=== PATIENT | male | born 1960 | race Caucasian/White ===

== ENCOUNTER 2019-11-12 05:19 | Inpatient (IN) | payer MEDICARE, MEDICAID ==
[2019-11-12] MEDS ORDERED: Sodium Chloride 0.9% 1,000 ML IV SCH ×3 (05:45→06:45)
--- NOTE | 2019-11-12 05:45 | EDM.PDOC ---
<Octaviano Gonzalez - Last Filed: 11/12/19 07:18> ED HPI GENERAL MEDICAL PROBLEM - General Chief Complaint: Fever Stated Complaint: [facility] Time Seen by Provider: 11/12/19 05:42 - Related Data Allergies Allergy/AdvReac Type Severity Reaction Status Date / Time No Known Allergies Allergy Verified 11/12/19 05:39 Home Meds: Home Meds Acetaminophen 500 mg PO TID 02/28/19 [History] Calcium Carbonate [Calcium] 600 mg PO DAILY 02/28/19 [History] Donepezil HCl 10 mg PO DAILY 02/28/19 [History] Multivitamin with Minerals [Multiple Vitamin] 1 tab PO DAILY 02/28/19 [History] Omeprazole 40 mg PO DAILY 02/28/19 [History] QUEtiapine Fumarate [Quetiapine Fumarate] 50 mg PO TID 02/28/19 [History] levETIRAcetam [Levetiracetam ER] 750 mg PO BID 02/28/19 [History] Hydrocortisone [Hydrocortisone 1% Crm] 1 applic TOP BID PRN 08/30/19 [History] OXcarbazepine [Oxcarbazepine] 150 mg PO BID 08/30/19 [History] Sertraline [Zoloft] 50 mg PO DAILY 08/30/19 [History] Potassium Chloride 10 meq PO DAILY 11/12/19 [History] Course - Vital Signs Text/Narrative:: Dr. Ledesma called @ 0720h Last Recorded V/S: Last Vital Signs Temp 36.0 C L 11/12/19 16:52 Pulse 109 H 11/12/19 18:00 Resp 18 11/12/19 18:00 BP 94/58 L 11/12/19 18:00 Pulse Ox 97 11/12/19 18:00 - Orders/Labs/Meds Orders: Active Orders 24 hr Category Date Time Status Ambulate [RC] QID Care 11/12/19 08:40 Active Communication Order [RC] ASDIRECTED Care 11/12/19 08:40 Active Communication Order [RC] UPON Care 11/12/19 08:40 Active Dorsiflex/Plantar flex x 10 [RC] Q4HR Care 11/12/19 08:40 Active Head of Bed Elevation [RC] ASDIRECTED Care 11/12/19 08:40 Active Intake and Output [RC] ASDIRECTED Care 11/12/19 08:40 Inactive Notify Provider Vital Signs [RC] ASDIRECTED Care 11/12/19 08:40 Active Pneumonia Education [RC] UPON Care 11/12/19 08:40 Active RT Incentive Spirometry [RC] Q1HWA Care 11/12/19 08:40 Active Ready for Discharge [RC] PER UNIT ROUTINE Care 11/12/19 08:40 Inactive Ready for Discharge [RC] UPON Care 11/12/19 08:40 Inactive Turn, Cough, Deep Breathe [RC] .PRN Care 11/12/19 08:40 Active Up to Chair [RC] ASDIRECTED Care 11/12/19 08:40 Active Vital Signs [RC] PER UNIT ROUTINE Care 11/12/19 08:40 Inactive Nutrition Reassessment/Plan, Adult [Consult to Cons 11/12/19 08:42 Active Disabilities Caregiver] [CONS] Routine Advance Diet Instructions [DIET] Diet 11/12/19 Breakfast Active Advance Diet Instructions [DIET] Diet 11/12/19 Dinner Active Chest 1V Frontal [CR] Stat Exams 11/12/19 05:41 Taken CBC WITH AUTO DIFF [HEME] Routine Lab 11/13/19 05:11 Ordered COMPREHENSIVE METABOLIC PN,CMP [CHEM] Routine Lab 11/13/19 05:11 Ordered CULTURE ANAEROBIC [RM] Routine Lab 11/12/19 09:15 Results CULTURE BLOOD [BC] Urgent Lab 11/12/19 05:50 Results CULTURE BLOOD [BC] Urgent Lab 11/12/19 05:55 Results CULTURE URINE [RM] Stat Lab 11/12/19 05:40 Received CULTURE WOUND + SMEAR [RM] Routine Lab 11/12/19 09:15 Results Acetaminophen/HYDROcodone [Lehr 325-5 MG] Med 11/12/19 08:40 Active 1 tab PO Q4H PRN Benzocaine/Cetylpyrd/Menthol [Cepacol Sore Throat] Med 11/12/19 08:40 Active 1 lozenge MUCMEM Q4H PRN Docusate Sodium [Colace] Med 11/12/19 08:40 Active 100 mg PO BID PRN Donepezil [Aricept] Med 11/12/19 14:00 Active 10 mg PO DAILY Enoxaparin [Lovenox] Med 11/13/19 09:00 Active 40 mg SUBCUT DAILY Hydrocortisone [Hydrocortisone 1% Crm] Med 11/12/19 08:44 Active 0 gm TOP BID PRN OXcarbazepine [Trileptal] Med 11/12/19 21:00 Active 150 mg PO BID Pantoprazole [ProTONIX] Med 11/12/19 14:00 Active 40 mg PO ACBREAKFAST Piperacillin/Tazobactam/Dext [Zosyn in Dextrose Iso- Med 11/12/19 14:00 Active Osmotic 3.375 GM] 3.375 gm Premix Bag 1 bag IV Q6H Potassium Chloride Med 11/12/19 14:00 Active 10 meq PO DAILY QUEtiapine [SEROqueL] Med 11/12/19 14:00 Active 50 mg PO TID Ropivacaine [Naropin 0.5%] 36 ml Med 11/12/19 09:00 Active dexAMETHasone [Dexamethasone] 8 mg EPINEPHrine [Adrenalin] 0.4 mg Sodium Chloride 0.9% [Normal Saline] 41.6 ml NERVRT ASDIRECTED Sertraline [Zoloft] Med 11/12/19 14:00 Active 50 mg PO DAILY Zolpidem [Ambien] Med 11/12/19 08:40 Active 5 mg PO BEDTIME PRN hydrOXYzine HCL [Vistaril] Med 11/12/19 08:40 Active 100 mg IM Q4H PRN levETIRAcetam [Keppra] Med 11/12/19 14:00 Active 750 mg PO BID Abdominal Binder [OM.PC] Routine Oth 11/12/19 08:40 Ordered Blood Culture x2 Reflex Set [OM.PC] Urgent Oth 11/12/19 05:39 Ordered Blood Culture x2 Reflex Set [OM.PC] Urgent Oth 11/12/19 10:32 Ordered Convert IV to Saline Lock [OM.PC] Routine Oth 11/12/19 08:40 Ordered Procedure Education [OM.PC] Routine Oth 11/12/19 08:40 Ordered Sequential Compression Device [OM.PC] Routine Oth 11/12/19 08:40 Ordered Resuscitation Status Routine Resus Stat 11/12/19 08:40 Ordered Medication Orders Hydrocodone Bitart/Acetaminophen (Lehr 325-5 Mg) 1 tab PO Q4H PRN PRN Reason: Pain (moderate 4-6) Benzocaine/Menthol (Cepacol Sore Throat) 1 lozenge MUCMEM Q4H PRN PRN Reason: Sore Throat Ropivacaine 36 ml/Dexamethasone 8 mg/Epinephrine HCl 0.4 mg/ Sodium Chloride 41.6 ml 0 ml NERVRT ASDIRECTED [facility] Last Admin: 11/12/19 09:35 Dose: 80 syringe Docusate Sodium (Colace) 100 mg PO BID PRN PRN Reason: Constipation Donepezil HCl (Aricept) 10 mg PO DAILY [facility] Last Admin: 11/12/19 14:22 Dose: Enoxaparin Sodium (Lovenox) 40 mg SUBCUT DAILY [facility] Hydrocortisone (Hydrocortisone 1% Crm) 0 gm TOP BID PRN PRN Reason: Rash Hydroxyzine HCl (Vistaril) 100 mg IM Q4H PRN PRN Reason: Breakthrough Pain Piperacillin/Tazobactam/ (Dextrose 3.375 gm/ Premix) 50 mls @ 100 mls/hr IV Q6H [facility] Last Admin: 11/12/19 13:59 Dose: 100 mls/hr Potassium Cl/Dextrose/Lact Ringer's (D5 Lr With 20 Meq Kcl) 1,000 mls @ 125 mls /hr IV ASDIRECTED [facility] Last Admin: 11/12/19 11:25 Dose: 125 mls/hr Vancomycin HCl 1 gm/ Sodium (Chloride) 250 mls @ 166.667 mls/hr IV Q12H [facility] Last Admin: 11/12/19 12:13 Dose: 166.667 mls/hr Norepinephrine Bitartrate 4 mg (/ Dextrose/Water) 250 mls @ 7.5 mls/hr IV TITRATE [facility]; Protocol Last Admin: 11/12/19 13:11 Dose: 2 mcg/min, 7.5 mls/hr Levetiracetam (Keppra) 750 mg PO BID [facility] Last Admin: 11/12/19 14:22 Dose: Ondansetron HCl (Zofran Odt) 4 mg PO Q4H PRN PRN Reason: Nausea/Vomiting Ondansetron HCl (Zofran) 4 mg IVPUSH Q4H PRN PRN Reason: Nausea/Vomiting Oxcarbazepine (Trileptal) 150 mg PO BID [facility] Pantoprazole Sodium (Protonix) 40 mg PO ACBREAKFAST [facility] Last Admin: 11/12/19 14:23 Dose: Potassium Chloride (Potassium Chloride) 10 meq PO DAILY [facility] Last Admin: 11/12/19 14:22 Dose: Quetiapine Fumarate (Seroquel) 50 mg PO TID [facility] Last Admin: 11/12/19 14:23 Dose: Sertraline HCl (Zoloft) 50 mg PO DAILY [facility] Last Admin: 11/12/19 14:23 Dose: Zolpidem Tartrate (Ambien) 5 mg PO BEDTIME PRN PRN Reason: Sleep Labs: Laboratory Tests 11/12/19 11/12/19 11/12/19 Range/Units 05:39 05:50 05:50 WBC 6.7 (4.5-11.0) K/uL RBC 4.01 L (4.30-5.90) M/uL Hgb 13.1 (12.0-15.0) g/dL Hct 40.0 (40.0-54.0) % MCV 100 H (80-98) fL MCH 33 H (27-31) pg MCHC 33 (32-36) % Plt Count 157 (150-400) K/uL Add Manual Diff Yes Neutrophils % (Manual) 72 H (36-66) % Band Neutrophils % 18 H (5-11) % Lymphocytes % (Manual) 7 L (24-44) % Monocytes % (Manual) 3 (2-6) % Sodium 143 (140-148) mmol/L Potassium 3.4 L (3.6-5.2) mmol/L Chloride 106 (100-108) mmol/L Carbon Dioxide 25 (21-32) mmol/L Anion Gap 15.4 H (5.0-14.0) mmol/L BUN 26 H (7-18) mg/dL Creatinine 1.1 (0.8-1.3) mg/dL Est Cr Clr Drug Dosing 69.95 mL/min Estimated GFR (MDRD) > 60 (>60) Glucose 86 (74-106) mg/dL Lactic Acid (0.4-2.0) mmol/L Calcium 8.0 L (8.5-10.1) mg/dL Total Bilirubin 0.6 (0.2-1.0) mg/dL AST 128 H (15-37) U/L ALT 171 H (12-78) U/L Alkaline Phosphatase 291 H (46-116) U/L C-Reactive Protein (0.0-0.3) mg/dL Total Protein 6.2 L (6.4-8.2) g/dL Albumin 2.5 L (3.4-5.0) g/dL Globulin 3.7 H (2.3-3.5) g/dL Albumin/Globulin Ratio 0.7 L (1.2-2.2) Lipase (73-393) U/L Urine Color Yellow (YELLOW) Urine Appearance Clear (CLEAR) Urine pH 7.0 (5.0-8.0) Ur Specific [place] 1.020 (1.008-1.030) Urine Protein 100 H (NEGATIVE) mg/dL Urine Glucose (UA) Negative (NEGATIVE) mg/dL Urine Ketones Trace H (NEGATIVE) mg/dL Urine Occult Blood Trace-intact H (NEGATIVE) Urine Nitrite Negative (NEGATIVE) Urine Bilirubin Small H (NEGATIVE) Urine Urobilinogen 1.0 (0.2-1.0) EU/dL Ur Leukocyte Esterase Negative (NEGATIVE) Urine RBC 0-5 (0-5) Urine WBC 0-5 (0-5) Ur Epithelial Cells Few Amorphous Sediment Few Urine Bacteria Few Urine Mucus Few 11/12/19 11/12/19 11/12/19 Range/Units 05:50 06:31 06:33 WBC (4.5-11.0) K/uL RBC (4.30-5.90) M/uL Hgb (12.0-15.0) g/dL Hct (40.0-54.0) % MCV (80-98) fL MCH (27-31) pg MCHC (32-36) % Plt Count (150-400) K/uL Add Manual Diff Neutrophils % (Manual) (36-66) % Band Neutrophils % (5-11) % Lymphocytes % (Manual) (24-44) % Monocytes % (Manual) (2-6) % Sodium (140-148) mmol/L Potassium (3.6-5.2) mmol/L Chloride (100-108) mmol/L Carbon Dioxide (21-32) mmol/L Anion Gap (5.0-14.0) mmol/L BUN (7-18) mg/dL Creatinine (0.8-1.3) mg/dL Est Cr Clr Drug Dosing mL/min Estimated GFR (MDRD) (>60) Glucose (74-106) mg/dL Lactic Acid 3.1 H (0.4-2.0) mmol/L Calcium (8.5-10.1) mg/dL Total Bilirubin (0.2-1.0) mg/dL AST (15-37) U/L ALT (12-78) U/L Alkaline Phosphatase (46-116) U/L C-Reactive Protein 19.72 H (0.0-0.3) mg/dL Total Protein (6.4-8.2) g/dL Albumin (3.4-5.0) g/dL Globulin (2.3-3.5) g/dL Albumin/Globulin Ratio (1.2-2.2) Lipase 32 L (73-393) U/L Urine Color (YELLOW) Urine Appearance (CLEAR) Urine pH (5.0-8.0) Ur Specific [place] (1.008-1.030) Urine Protein (NEGATIVE) mg/dL Urine Glucose (UA) (NEGATIVE) mg/dL Urine Ketones (NEGATIVE) mg/dL Urine Occult Blood (NEGATIVE) Urine Nitrite (NEGATIVE) Urine Bilirubin (NEGATIVE) Urine Urobilinogen (0.2-1.0) EU/dL Ur Leukocyte Esterase (NEGATIVE) Urine RBC (0-5) Urine WBC (0-5) Ur Epithelial Cells Amorphous Sediment Urine Bacteria Urine Mucus 11/12/19 Range/Units 10:50 WBC (4.5-11.0) K/uL RBC (4.30-5.90) M/uL Hgb (12.0-15.0) g/dL Hct (40.0-54.0) % MCV (80-98) fL MCH (27-31) pg MCHC (32-36) % Plt Count (150-400) K/uL Add Manual Diff Neutrophils % (Manual) (36-66) % Band Neutrophils % (5-11) % Lymphocytes % (Manual) (24-44) % Monocytes % (Manual) (2-6) % Sodium (140-148) mmol/L Potassium (3.6-5.2) mmol/L Chloride (100-108) mmol/L Carbon Dioxide (21-32) mmol/L Anion Gap (5.0-14.0) mmol/L BUN (7-18) mg/dL Creatinine (0.8-1.3) mg/dL Est Cr Clr Drug Dosing mL/min Estimated GFR (MDRD) (>60) Glucose (74-106) mg/dL Lactic Acid 4.8 H (0.4-2.0) mmol/L Calcium (8.5-10.1) mg/dL Total Bilirubin (0.2-1.0) mg/dL AST (15-37) U/L ALT (12-78) U/L Alkaline Phosphatase (46-116) U/L C-Reactive Protein (0.0-0.3) mg/dL Total Protein (6.4-8.2) g/dL Albumin (3.4-5.0) g/dL Globulin (2.3-3.5) g/dL Albumin/Globulin Ratio (1.2-2.2) Lipase (73-393) U/L Urine Color (YELLOW) Urine Appearance (CLEAR) Urine pH (5.0-8.0) Ur Specific [place] (1.008-1.030) Urine Protein (NEGATIVE) mg/dL Urine Glucose (UA) (NEGATIVE) mg/dL Urine Ketones (NEGATIVE) mg/dL Urine Occult Blood (NEGATIVE) Urine Nitrite (NEGATIVE) Urine Bilirubin (NEGATIVE) Urine Urobilinogen (0.2-1.0) EU/dL Ur Leukocyte Esterase (NEGATIVE) Urine RBC (0-5) Urine WBC (0-5) Ur Epithelial Cells Amorphous Sediment Urine Bacteria Urine Mucus Meds: Medications Generic Name Dose Route Start Last Admin Trade Name Freq PRN Reason Stop Dose Admin Hydrocodone Bitart/Acetaminophen 1 tab 11/12/19 08:40 Lehr 325-5 Mg PO Q4H PRN Pain (moderate 4-6) Benzocaine/Menthol 1 lozenge 11/12/19 08:40 Cepacol Sore Throat MUCMEM Q4H PRN Sore Throat Ropivacaine 36 ml/ 0 ml 11/12/19 09:00 11/12/19 09:35 Dexamethasone 8 mg/ NERVRT 80 syringe Epinephrine HCl 0.4 mg/ Sodium ASDIRECTED ELISHA Administration Chloride 41.6 ml Docusate Sodium 100 mg 11/12/19 08:40 Colace PO BID PRN Constipation Donepezil HCl 10 mg 11/12/19 14:00 11/12/19 14:22 Aricept PO Not Given DAILY [facility] Enoxaparin Sodium 40 mg 11/13/19 09:00 Lovenox SUBCUT DAILY [facility] Hydrocortisone 0 gm 11/12/19 08:44 Hydrocortisone 1% Crm TOP BID PRN Rash Hydroxyzine HCl 100 mg 11/12/19 08:40 Vistaril IM Q4H PRN Breakthrough Pain Piperacillin/Tazobactam/ 50 mls @ 100 mls/hr 11/12/19 14:00 11/12/19 13:59 Dextrose 3.375 gm/ Premix IV 100 mls/hr Q6H [facility] Administration Potassium Cl/Dextrose/Lact Ringer's 1,000 mls @ 125 mls/hr 11/12/19 11:15 11:25 D5 Lr With 20 Meq Kcl IV 125 mls/hr ASDIRECTED [facility] Administration Vancomycin HCl 1 gm/ Sodium 250 mls @ 166.667 mls/hr 11/12/19 12:00 11/12/19 12:13 Chloride IV 166.667 mls/hr Q12H [facility] Administration Norepinephrine Bitartrate 4 mg 250 mls @ 7.5 mls/hr 11/12/19 12:45 11/12/19 13:11 / Dextrose/Water IV 2 mcg/min TITRATE [facility] 7.5 mls/hr Administration Protocol 2 MCG/MIN Levetiracetam 750 mg 11/12/19 14:00 11/12/19 14:22 Keppra PO Not Given BID [facility] Ondansetron HCl 4 mg 11/12/19 11:07 Zofran Odt PO Q4H PRN Nausea/Vomiting Ondansetron HCl 4 mg 11/12/19 11:07 Zofran IVPUSH Q4H PRN Nausea/Vomiting Oxcarbazepine 150 mg 11/12/19 21:00 Trileptal PO BID [facility] Pantoprazole Sodium 40 mg 11/12/19 14:00 11/12/19 14:23 Protonix PO Not Given ACBREAKFAST [facility] Potassium Chloride 10 meq 11/12/19 14:00 11/12/19 14:22 Potassium Chloride PO Not Given DAILY [facility] Quetiapine Fumarate 50 mg 11/12/19 14:00 11/12/19 14:23 Seroquel PO Not Given TID [facility] Sertraline HCl 50 mg 11/12/19 14:00 11/12/19 14:23 Zoloft PO Not Given DAILY [facility] Zolpidem Tartrate 5 mg 11/12/19 08:40 Ambien PO BEDTIME PRN Sleep Discontinued Medications Generic Name Dose Route Start Last Admin Trade Name [place] PRN Reason Stop Dose Admin Acetaminophen 650 mg 11/12/19 05:58 11/12/19 06:03 Tylenol RECTAL 11/12/19 05:59 650 mg NOW ONE Administration Bupivacaine HCl Confirm 11/12/19 08:34 11/12/19 09:29 Marcaine 0.5% Administered 11/12/19 08:35 20 ml Dose Administration 50 ml .ROUTE .STK-MED ONE Dexamethasone Confirm 11/12/19 08:41 Dexamethasone Administered 11/12/19 08:42 Dose 4 mg .ROUTE .STK-MED ONE Fentanyl Confirm 11/12/19 08:41 Sublimaze Administered 11/12/19 08:42 Dose 250 mcg .ROUTE .STK-MED ONE Glycopyrrolate Confirm 11/12/19 08:41 Robinul Administered 11/12/19 08:42 Dose 1 mg .ROUTE .STK-MED ONE Sodium Chloride 1,000 mls @ 999 mls/hr 11/12/19 05:45 11/12/19 05:40 Normal Saline IV 999 mls/hr ASDIRECTED ELISHA Administration Sodium Chloride 1,000 mls @ 999 mls/hr 11/12/19 05:45 11/12/19 06:30 Normal Saline IV 999 mls/hr ASDIRECTED [facility] Administration Piperacillin Sod/Tazobactam 100 mls @ 100 mls/hr 11/12/19 06:17 11/12/19 06: 35 Sod 4.5 gm/ Sodium Chloride IV 11/12/19 07:16 100 mls/hr ONETIME ONE Administration Aztreonam 1 gm/ Sodium 50 mls @ 100 mls/hr 11/12/19 06:32 11/12/19 06:53 Chloride IV 11/12/19 07:01 100 mls/hr ONETIME ONE Administration Sodium Chloride Confirm 11/12/19 06:32 11/12/19 06:40 Normal Saline Administered 11/12/19 06:33 Not Given Dose 100 mls @ as directed .ROUTE .STK-MED ONE Sodium Chloride Confirm 11/12/19 06:33 11/12/19 06:40 Normal Saline Administered 11/12/19 06:34 Not Given Dose 100 mls @ as directed .ROUTE .STK-MED ONE Sodium Chloride 1,000 mls @ 500 mls/hr 11/12/19 06:45 11/12/19 07:36 Normal Saline IV 500 mls/hr ASDIRECTED EILSHA Administration Lactated Ringer's Confirm 11/12/19 09:00 Ringers, Lactated Administered 11/12/19 09:01 Dose 1,000 mls @ as directed .ROUTE .STK-MED ONE Sodium Chloride Confirm 11/12/19 09:04 Normal Saline Administered 11/12/19 09:05 Dose 10 mls @ as directed .ROUTE .STK-MED ONE Lactated Ringer's Confirm 11/12/19 09:07 Ringers, Lactated Administered 11/12/19 09:08 Dose 1,000 mls @ as directed .ROUTE .STK-MED ONE Lactated Ringer's Confirm 11/12/19 09:37 Ringers, Lactated Administered 11/12/19 09:38 Dose 1,000 mls @ as directed .ROUTE .STK-MED ONE Lactated Ringer's 1,000 ml 11/12/19 09:15 11/12/19 09:15 Ringers, Lactated IRR 11/12/19 09:16 1,000 ml .STK-MED ONE Administration Lidocaine/Epinephrine Confirm 11/12/19 08:34 11/12/19 09:29 Xylocaine 1% With Epinephrine 1:100,000 Administered 11/12/19 08:35 20 ml Dose Administration 50 ml .ROUTE .STK-MED ONE Neostigmine Methylsulfate Confirm 11/12/19 08:41 Neostigmine Administered 11/12/19 08:42 Dose 5 mg .ROUTE .STK-MED ONE Ondansetron HCl Confirm 11/12/19 08:41 Zofran Administered 11/12/19 08:42 Dose 4 mg .ROUTE .STK-MED ONE Phenylephrine HCl Confirm 11/12/19 09:04 Bobby-Synephrine Administered 11/12/19 09:05 Dose 10 mg .ROUTE .STK-MED ONE Piperacillin Sod/Tazobactam Sod Confirm 11/12/19 06:30 11/12/19 06:39 Zosyn Administered 11/12/19 06:31 Not Given Dose 4.5 gm .ROUTE .STK-MED ONE Propofol Confirm 11/12/19 08:41 Diprivan 20 Ml Administered 11/12/19 08:42 Dose 200 mg .ROUTE .STK-MED ONE Rocuronium [place] Confirm 11/12/19 08:41 Zemuron Administered 11/12/19 08:42 Dose 50 mg .ROUTE .STK-MED ONE Succinylcholine Chloride Confirm 11/12/19 08:41 Quelicin Administered 11/12/19 08:42 Dose 200 mg .ROUTE .STK-MED ONE - Radiology Interpretation Free Text/Narrative:: GB ultrasound-cholecystitis Departure - Departure Time of Disposition: 07:45 Disposition: Admitted As Inpatient 65 Condition: Fair Clinical Impression: Acute cholecystitis - Discharge Information *PRESCRIPTION DRUG MONITORING PROGRAM REVIEWED*: Not Applicable *COPY OF PRESCRIPTION DRUG MONITORING REPORT IN PATIENT SUSANNE: Not Applicable Sepsis Event Note - Focused Exam Vital Signs: Vital Signs Temp Pulse Resp BP Pulse Ox 11/12/19 11:00 122 H 18 85/48 L 98 11/12/19 10:55 36.9 C 124 H 18 93/50 L 98 11/12/19 10:50 127 H 18 92/49 L 98 11/12/19 10:45 124 H 16 94/50 L 96 11/12/19 10:40 36.4 C 130 H 18 98/53 L 99 11/12/19 08:27 120 H 18 83/43 L 11/12/19 08:15 118 H 19 83/40 L 11/12/19 07:27 119 H 16 89/41 L 94 L 11/12/19 07:12 119 H 19 89/46 L 95 11/12/19 06:42 121 H 18 93/46 L 98 11/12/19 06:27 128 H 17 85/49 L 99 11/12/19 06:22 125 H 20 84/46 L 99 Date Exam was Performed: 11/12/19 Time Exam was Performed: 07:18 - My Orders Last 24 Hours: My Active Orders 11/12/19 05:39 Blood Culture x2 Reflex Set [OM.PC] Urgent 11/12/19 05:40 CULTURE URINE [RM] Stat 11/12/19 05:41 Chest 1V Frontal [CR] Stat 11/12/19 05:50 CULTURE BLOOD [BC] Urgent 11/12/19 05:55 CULTURE BLOOD [BC] Urgent - Assessment/Plan Last 24 Hours: My Active Orders 11/12/19 05:39 Blood Culture x2 Reflex Set [OM.PC] Urgent 11/12/19 05:40 CULTURE URINE [RM] Stat 11/12/19 05:41 Chest 1V Frontal [CR] Stat 11/12/19 05:50 CULTURE BLOOD [BC] Urgent 11/12/19 05:55 CULTURE BLOOD [BC] Urgent <Lidia Echeverria - Last Filed: 11/12/19 18:14> ED HPI GENERAL MEDICAL PROBLEM - General Source of Information: Reports: Patient History Limitations: Reports: No Limitations - History of Present Illness INITIAL COMMENTS - FREE TEXT/NARRATIVE: pt arrived with a fever of 101. he had a temp at [facility] of 104. He has not been as active for the past 2 days. He has not been vomiting. Onset: Today Duration: Hour(s): Location: Reports: Generalized Associated Symptoms: Reports: Fever/Chills, Malaise Past Medical History HEENT History: Reports: Impaired Vision Cardiovascular History: Reports: None Respiratory History: Reports: None Gastrointestinal History: Reports: None Genitourinary History: Reports: None Musculoskeletal History: Reports: Other (See Below) Other Musculoskeletal History: right hip pain Neurological History: Reports: None Psychiatric History: Reports: None Endocrine/Metabolic History: Reports: None Hematologic History: Reports: None Immunologic History: Reports: None Oncologic (Cancer) History: Reports: None Dermatologic History: Reports: None - Past Surgical History Musculoskeletal Surgical History: Reports: None, Other (See Below) Other Musculoskeletal Surgeries/Procedures:: cadaver bone LT leg Social & Family History - Tobacco Use Smoking Status *Q: Never Smoker - Caffeine Use Caffeine Use: Reports: None - Recreational Drug Use Recreational Drug Use: No ED ROS GENERAL - Review of Systems Review Of Systems: See Below Constitutional: Reports: Fever, Chills, Malaise, Weakness HEENT: Reports: No Symptoms Respiratory: Reports: No Symptoms Cardiovascular: Reports: No Symptoms Endocrine: Reports: No Symptoms GI/Abdominal: Reports: No Symptoms : Reports: No Symptoms Musculoskeletal: Reports: No Symptoms Skin: Reports: No Symptoms Neurological: Reports: Confusion, Other (increased. 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 ) Psychiatric: Reports: Confusion ED EXAM, SEPSIS - Physical Exam Exam: See Below Text/Narrative:: pt is a pale appear person with elevated temp. He has not had a cough. He has been less active for the past 2 days. He has not been vomiting. Exam Limited By: No Limitations General Appearance: Alert, No Apparent Distress, Anxious Ears: Normal TMs Nose: Normal Inspection Throat/Mouth: Other (mouth is dry. ) Head: Atraumatic Neck: Normal Inspection Respiratory/Chest: No Respiratory Distress Cardiovascular: Regular Rate, Rhythm, Tachycardia GI/Abdominal Exam: Soft, Non-Tender (Male) Exam: Deferred Rectal (Males) Exam: Deferred Extremities: Normal Inspection Neurological: Alert, Other (pt is normally confused. ) Course - Orders/Labs/Meds Labs: Laboratory Tests 11/12/19 11/12/19 11/12/19 Range/Units 05:39 05:50 05:50 WBC 6.7 (4.5-11.0) K/uL RBC 4.01 L (4.30-5.90) M/uL Hgb 13.1 (12.0-15.0) g/dL Hct 40.0 (40.0-54.0) % MCV 100 H (80-98) fL MCH 33 H (27-31) pg MCHC 33 (32-36) % Plt Count 157 (150-400) K/uL Add Manual Diff Yes Neutrophils % (Manual) 72 H (36-66) % Band Neutrophils % 18 H (5-11) % Lymphocytes % (Manual) 7 L (24-44) % Monocytes % (Manual) 3 (2-6) % Sodium 143 (140-148) mmol/L Potassium 3.4 L (3.6-5.2) mmol/L Chloride 106 (100-108) mmol/L Carbon Dioxide 25 (21-32) mmol/L Anion Gap 15.4 H (5.0-14.0) mmol/L BUN 26 H (7-18) mg/dL Creatinine 1.1 (0.8-1.3) mg/dL Est Cr Clr Drug Dosing 69.95 mL/min Estimated GFR (MDRD) > 60 (>60) Glucose 86 (74-106) mg/dL Lactic Acid (0.4-2.0) mmol/L Calcium 8.0 L (8.5-10.1) mg/dL Total Bilirubin 0.6 (0.2-1.0) mg/dL AST 128 H (15-37) U/L ALT 171 H (12-78) U/L Alkaline Phosphatase 291 H (46-116) U/L C-Reactive Protein (0.0-0.3) mg/dL Total Protein 6.2 L (6.4-8.2) g/dL Albumin 2.5 L (3.4-5.0) g/dL Globulin 3.7 H (2.3-3.5) g/dL Albumin/Globulin Ratio 0.7 L (1.2-2.2) Lipase (73-393) U/L Urine Color Yellow (YELLOW) Urine Appearance Clear (CLEAR) Urine pH 7.0 (5.0-8.0) Ur Specific [place] 1.020 (1.008-1.030) Urine Protein 100 H (NEGATIVE) mg/dL Urine Glucose (UA) Negative (NEGATIVE) mg/dL Urine Ketones Trace H (NEGATIVE) mg/dL Urine Occult Blood Trace-intact H (NEGATIVE) Urine Nitrite Negative (NEGATIVE) Urine Bilirubin Small H (NEGATIVE) Urine Urobilinogen 1.0 (0.2-1.0) EU/dL Ur Leukocyte Esterase Negative (NEGATIVE) Urine RBC 0-5 (0-5) Urine WBC 0-5 (0-5) Ur Epithelial Cells Few Amorphous Sediment Few Urine Bacteria Few Urine Mucus Few 11/12/19 11/12/19 11/12/19 Range/Units 05:50 06:31 06:33 WBC (4.5-11.0) K/uL RBC (4.30-5.90) M/uL Hgb (12.0-15.0) g/dL Hct (40.0-54.0) % MCV (80-98) fL MCH (27-31) pg MCHC (32-36) % Plt Count (150-400) K/uL Add Manual Diff Neutrophils % (Manual) (36-66) % Band Neutrophils % (5-11) % Lymphocytes % (Manual) (24-44) % Monocytes % (Manual) (2-6) % Sodium (140-148) mmol/L Potassium (3.6-5.2) mmol/L Chloride (100-108) mmol/L Carbon Dioxide (21-32) mmol/L Anion Gap (5.0-14.0) mmol/L BUN (7-18) mg/dL Creatinine (0.8-1.3) mg/dL Est Cr Clr Drug Dosing mL/min Estimated GFR (MDRD) (>60) Glucose (74-106) mg/dL Lactic Acid 3.1 H (0.4-2.0) mmol/L Calcium (8.5-10.1) mg/dL Total Bilirubin (0.2-1.0) mg/dL AST (15-37) U/L ALT (12-78) U/L Alkaline Phosphatase (46-116) U/L C-Reactive Protein 19.72 H (0.0-0.3) mg/dL Total Protein (6.4-8.2) g/dL Albumin (3.4-5.0) g/dL Globulin (2.3-3.5) g/dL Albumin/Globulin Ratio (1.2-2.2) Lipase 32 L (73-393) U/L Urine Color (YELLOW) Urine Appearance (CLEAR) Urine pH (5.0-8.0) Ur Specific [place] (1.008-1.030) Urine Protein (NEGATIVE) mg/dL Urine Glucose (UA) (NEGATIVE) mg/dL Urine Ketones (NEGATIVE) mg/dL Urine Occult Blood (NEGATIVE) Urine Nitrite (NEGATIVE) Urine Bilirubin (NEGATIVE) Urine Urobilinogen (0.2-1.0) EU/dL Ur Leukocyte Esterase (NEGATIVE) Urine RBC (0-5) Urine WBC (0-5) Ur Epithelial Cells Amorphous Sediment Urine Bacteria Urine Mucus 11/12/19 Range/Units 10:50 WBC (4.5-11.0) K/uL RBC (4.30-5.90) M/uL Hgb (12.0-15.0) g/dL Hct (40.0-54.0) % MCV (80-98) fL MCH (27-31) pg MCHC (32-36) % Plt Count (150-400) K/uL Add Manual Diff Neutrophils % (Manual) (36-66) % Band Neutrophils % (5-11) % Lymphocytes % (Manual) (24-44) % Monocytes % (Manual) (2-6) % Sodium (140-148) mmol/L Potassium (3.6-5.2) mmol/L Chloride (100-108) mmol/L Carbon Dioxide (21-32) mmol/L Anion Gap (5.0-14.0) mmol/L BUN (7-18) mg/dL Creatinine (0.8-1.3) mg/dL Est Cr Clr Drug Dosing mL/min Estimated GFR (MDRD) (>60) Glucose (74-106) mg/dL Lactic Acid 4.8 H (0.4-2.0) mmol/L Calcium (8.5-10.1) mg/dL Total Bilirubin (0.2-1.0) mg/dL AST (15-37) U/L ALT (12-78) U/L Alkaline Phosphatase (46-116) U/L C-Reactive Protein (0.0-0.3) mg/dL Total Protein (6.4-8.2) g/dL Albumin (3.4-5.0) g/dL Globulin (2.3-3.5) g/dL Albumin/Globulin Ratio (1.2-2.2) Lipase (73-393) U/L Urine Color (YELLOW) Urine Appearance (CLEAR) Urine pH (5.0-8.0) Ur Specific [place] (1.008-1.030) Urine Protein (NEGATIVE) mg/dL Urine Glucose (UA) (NEGATIVE) mg/dL Urine Ketones (NEGATIVE) mg/dL Urine Occult Blood (NEGATIVE) Urine Nitrite (NEGATIVE) Urine Bilirubin (NEGATIVE) Urine Urobilinogen (0.2-1.0) EU/dL Ur Leukocyte Esterase (NEGATIVE) Urine RBC (0-5) Urine WBC (0-5) Ur Epithelial Cells Amorphous Sediment Urine Bacteria Urine Mucus - Re-Assessments/Exams Free Text/Narrative Re-Assessment/Exam: 11/12/19 06:09 chest xray is neg--chronic changes. urine looks clear, pt is dehydrated. His wbc was 6,700 mainly seghs. He has markedly elevated liver enzymes. He is very tender in the rt upper abdoman. He is very dehydrated. He was given zosyn and azatam. He will have a US of his GB area, Pt was given tylenol 650. 11/12/19 06:51 11/12/19 18:13 US revealed a thickened GB wall and evidence of a hot GB. Sepsis Event Note - Evaluation Sepsis Screening Result: Severe Sepsis Risk - Focused Exam Date Exam was Performed: 11/12/19 Time Exam was Performed: 18:13
[2019-11-12] MEDS ORDERED: Acetaminophen 650 MG Supp RECTAL ONE (05:58)
[2019-11-12] MEDS ORDERED: Piperacillin/Tazobactam 4.5 GM in Sodium Chloride 0.9% 100 ML IV ONE (06:17)
[2019-11-12] MEDS ORDERED: Piperacillin/Tazobactam 4.5 GM Vial ONE (06:30)
[2019-11-12] MEDS ORDERED: Sodium Chloride 0.9% 0 ML ONE (06:32)
[2019-11-12] MEDS ORDERED: Sodium Chloride 0.9% 100 ML ONE (06:33)
--- NOTE | 2019-11-12 07:45 | CRLUS ---
INDICATION: Pain in the right upper abdomen. TECHNIQUE: Abdominal ultrasound. FINDINGS: Right kidney measures 11.2 cm and is negative for hydronephrosis. Pancreas where seen is grossly normal. Proximal abdominal aorta normal in caliber. Liver where seen negative for mass or bile duct dilatation. Proximal abdominal inferior cava normal in caliber and patent with flow in the appropriate direction. The gallbladder is distended to moderately prominent degree. Small stones in the gallbladder. Moderate amount of dense sludge in the gallbladder. Gallbladder wall is irregular and moderately thickened with measurements of the gallbladder wall being up to 6 mm. Despite the absence of a sonographic Russell`s sign, cholecystitis should be the primary consideration and should be excluded. Other gallbladder wall infiltrative process such as neoplasm would be less likely since there is no discrete mass however this latter finding is not entirely excluded. Common bile duct measures 3.9 mm which is within normal limits. Main portal vein is patent. The gallbladder was distended to a length of 10-11 cm. Remainder negative. IMPRESSION: Moderate irregular dense sludge in the gallbladder with small stones with the gallbladder wall being moderately thickened and irregular. Findings suggest cholecystitis which could be acute with possible subacute or chronic component. Other infiltrative process of the gallbladder such as neoplasm is not entirely excluded. No biliary dilatation. The gallbladder is prominently distended. Other findings as above. Dictated by Candido Abraham MD @ Nov 12 2019 7:43AM Signed by Dr. Candido Abraham @ Nov 12 2019 7:44AM
[2019-11-12] MEDS ORDERED: Bupivacaine 0.5% 50 ML MDV ONE (08:34)
[2019-11-12] MEDS ORDERED: Lidocaine 1% with EPINEPHrine 1:100,000 50 ML MDV ONE (08:34)
[2019-11-12] MEDS ORDERED: hydrOXYzine HCL 100 MG/2 ML SDV IM PRN (08:40)
[2019-11-12] MEDS ORDERED: Docusate Sodium 100 MG Cap PO PRN (08:40)
[2019-11-12] MEDS ORDERED: Benzocaine/Cetylpyridinium/Menthol Lozenge MUCMEM PRN (08:40)
[2019-11-12] MEDS ORDERED: fentaNYL 250 MCG/5 ML SDV ONE (08:41)
[2019-11-12] MEDS ORDERED: Propofol 200 MG/20 ML SDV ONE (08:41)
[2019-11-12] MEDS ORDERED: Succinylcholine 200 MG/10 ML MDV ONE (08:41)
[2019-11-12] MEDS ORDERED: Dexamethasone 4 MG/ML SDV ONE (08:41)
[2019-11-12] MEDS ORDERED: Ondansetron 4 MG/2 ML SDV ONE (08:41)
[2019-11-12] MEDS ORDERED: Rocuronium 50 MG/5 ML Vial ONE (08:41)
[2019-11-12] MEDS ORDERED: Neostigmine Methylsulfate 1 MG/ML 5 ML Syringe ONE (08:41)
[2019-11-12] MEDS ORDERED: Glycopyrrolate 0.2 MG/ML 5 ML MDV ONE (08:41)
[2019-11-12] MEDS ORDERED: Hydrocortisone 1% Crm 30 GM Tube TOP PRN (08:44)
[2019-11-12] MEDS ORDERED: Lactated Ringers 1,000 ML ONE ×3 (09:00→09:37)
[2019-11-12] MEDS ORDERED: Ropivacaine 36 ML, dexAMETHasone 8 MG, EPINEPHrine 0.4 MG, Sodium Chloride 0.9% 41.6 ML NERVRT SCH ×4 (09:00)
[2019-11-12] MEDS ORDERED: Sodium Chloride 0.9% 10 ML ONE (09:04)
[2019-11-12] MEDS ORDERED: Phenylephrine 1% 10 MG/ML SDV ONE (09:04)
[2019-11-12] MEDS ORDERED: Vancomycin 1 GM SDV IV SCH (11:00)
[2019-11-12] MEDS ORDERED: Ondansetron 4 MG/2 ML SDV IVPUSH PRN (11:07)
[2019-11-12] MEDS ORDERED: Ondansetron 4 MG Tab.DIS PO PRN (11:07)
--- NOTE | 2019-11-12 11:08 | PCM.CONS ---
H&P History of Present Illness - General Date of Service: 11/12/19 Admit Problem/Dx: Admission Diagnosis/Problem Admission Diagnosis/Problem Acute cholecystitis Source of Information: Provider. No: Patient History Limitations: Reports: Other (Sedation) - History of Present Illness Initial Comments - Free Text/Narative: CC: lethargic and febrile HPI: Jerel was sent to the emergency room from his assisted living this morning with progressive lethargy and a fever greater than 101. Jerel has recently had anesthesia and is not able to provide any usable history. History is gathered from emergency room personnel and notes from the assisted living. His assisted living facility reports that he has been slowly declining over the past 2 weeks but more rapidly over the past 2 days. He has been less interactive and unable to feed himself. He has been refusing to walk. Today was reportedly the first day that he had a fever. Work-up in the emergency room was concerning for sepsis and acute cholecystitis. He was taken to the operating room and had a laparoscopic cholecystectomy. He continues to be hypotensive with systolic blood pressures in the 70s and 80s and occasionally in the 90s. He is tachycardic. His lactic acid level is elevated. He has been admitted to the intensive care unit. I was asked consult by Dr. Ledesma regarding management of severe sepsis and concern that he may be developing septic shock. - Related Data Allergies/Adverse Reactions: Allergies Allergy/AdvReac Type Severity Reaction Status Date / Time No Known Allergies Allergy Verified 11/12/19 05:39 Home Medications: Home Meds Acetaminophen 500 mg PO TID 02/28/19 [History] Calcium Carbonate [Calcium] 600 mg PO DAILY 02/28/19 [History] Donepezil HCl 10 mg PO DAILY 02/28/19 [History] Multivitamin with Minerals [Multiple Vitamin] 1 tab PO DAILY 02/28/19 [History] Omeprazole 40 mg PO DAILY 02/28/19 [History] QUEtiapine Fumarate [Quetiapine Fumarate] 50 mg PO TID 02/28/19 [History] levETIRAcetam [Levetiracetam ER] 750 mg PO BID 02/28/19 [History] Hydrocortisone [Hydrocortisone 1% Crm] 1 applic TOP BID PRN 08/30/19 [History] OXcarbazepine [Oxcarbazepine] 150 mg PO BID 08/30/19 [History] Sertraline [Zoloft] 50 mg PO DAILY 08/30/19 [History] Potassium Chloride 10 meq PO DAILY 11/12/19 [History] Past Medical History HEENT History: Reports: Impaired Vision Cardiovascular History: Reports: None Respiratory History: Reports: None Gastrointestinal History: Reports: None Genitourinary History: Reports: None Musculoskeletal History: Reports: Other (See Below) Other Musculoskeletal History: right hip pain Neurological History: Reports: None Psychiatric History: Reports: None Endocrine/Metabolic History: Reports: None Hematologic History: Reports: None Immunologic History: Reports: None Oncologic (Cancer) History: Reports: None Dermatologic History: Reports: None - Past Surgical History Musculoskeletal Surgical History: Reports: None, Other (See Below) Other Musculoskeletal Surgeries/Procedures:: cadaver bone LT leg Social & Family History - Family History Family Medical History: Unobtainable (Patient sedated and lethargic) - Tobacco Use Smoking Status *Q: Never Smoker - Caffeine Use Caffeine Use: Reports: None - Recreational Drug Use Recreational Drug Use: No H&P Review of Systems - Review of Systems: Review Of Systems: Unable To Obtain Reason Not Obtained: Patient is sedated and very lethargic Exam - Exam Exam: See Below - Vital Signs Vital Signs: Last Vital Signs Temp 37.1 C 11/12/19 06:10 Pulse 120 H 11/12/19 08:27 Resp 18 11/12/19 08:27 BP 83/43 L 11/12/19 08:27 Pulse Ox 94 L 11/12/19 07:27 Weight: 72.575 kg - Exam Quality Assessment: Supplemental Oxygen General: Lethargic. No: Alert, Cooperative, Mild Distress HEENT: Conjunctiva Clear. No: Mucosa Moist & [place] (Very dry) Neck: Supple, Trachea Midline Lungs: Clear to Auscultation, Normal Respiratory Effort Cardiovascular: Regular Rhythm, Tachycardia. No: Systolic Murmur GI/Abdominal Exam: Soft, Tender. No: Normal Bowel Sounds (Hypoactive) Extremities: No Pedal Edema. No: Increased Warmth Peripheral Pulses: 1+: Dorsalis Pedis (L), Dorsalis Pedis (R) Skin: Warm, Dry Neuro Extensive - Mental Status: Withdraws to Pain. No: Alert Neuro Extensive - Motor, Sensory, Reflexes: No: Facial Palsy (R), Facial palsy ( L), Tremor Psychiatric: No: Alert, Agitated - Patient Data Lab Results Last 24 hrs: Laboratory Results - last 24 hr 11/12/19 11/12/19 11/12/19 Range/Units 05:39 05:50 05:50 WBC 6.7 (4.5-11.0) K/uL RBC 4.01 L (4.30-5.90) M/uL Hgb 13.1 (12.0-15.0) g/dL Hct 40.0 (40.0-54.0) % MCV 100 H (80-98) fL MCH 33 H (27-31) pg MCHC 33 (32-36) % Plt Count 157 (150-400) K/uL Add Manual Diff Yes Neutrophils % (Manual) 72 H (36-66) % Band Neutrophils % 18 H (5-11) % Lymphocytes % (Manual) 7 L (24-44) % Monocytes % (Manual) 3 (2-6) % Sodium 143 (140-148) mmol/L Potassium 3.4 L (3.6-5.2) mmol/L Chloride 106 (100-108) mmol/L Carbon Dioxide 25 (21-32) mmol/L Anion Gap 15.4 H (5.0-14.0) mmol/L BUN 26 H (7-18) mg/dL Creatinine 1.1 (0.8-1.3) mg/dL Est Cr Clr Drug Dosing 69.95 mL/min Estimated GFR (MDRD) > 60 (>60) Glucose 86 (74-106) mg/dL Lactic Acid (0.4-2.0) mmol/L Calcium 8.0 L (8.5-10.1) mg/dL Total Bilirubin 0.6 (0.2-1.0) mg/dL AST 128 H (15-37) U/L ALT 171 H (12-78) U/L Alkaline Phosphatase 291 H (46-116) U/L C-Reactive Protein (0.0-0.3) mg/dL Total Protein 6.2 L (6.4-8.2) g/dL Albumin 2.5 L (3.4-5.0) g/dL Globulin 3.7 H (2.3-3.5) g/dL Albumin/Globulin Ratio 0.7 L (1.2-2.2) Lipase (73-393) U/L Urine Color Yellow (YELLOW) Urine Appearance Clear (CLEAR) Urine pH 7.0 (5.0-8.0) Ur Specific [place] 1.020 (1.008-1.030) Urine Protein 100 H (NEGATIVE) mg/dL Urine Glucose (UA) Negative (NEGATIVE) mg/dL Urine Ketones Trace H (NEGATIVE) mg/dL Urine Occult Blood Trace-intact H (NEGATIVE) Urine Nitrite Negative (NEGATIVE) Urine Bilirubin Small H (NEGATIVE) Urine Urobilinogen 1.0 (0.2-1.0) EU/dL Ur Leukocyte Esterase Negative (NEGATIVE) Urine RBC 0-5 (0-5) Urine WBC 0-5 (0-5) Ur Epithelial Cells Few Amorphous Sediment Few Urine Bacteria Few Urine Mucus Few 11/12/19 11/12/19 11/12/19 Range/Units 05:50 06:31 06:33 WBC (4.5-11.0) K/uL RBC (4.30-5.90) M/uL Hgb (12.0-15.0) g/dL Hct (40.0-54.0) % MCV (80-98) fL MCH (27-31) pg MCHC (32-36) % Plt Count (150-400) K/uL Add Manual Diff Neutrophils % (Manual) (36-66) % Band Neutrophils % (5-11) % Lymphocytes % (Manual) (24-44) % Monocytes % (Manual) (2-6) % Sodium (140-148) mmol/L Potassium (3.6-5.2) mmol/L Chloride (100-108) mmol/L Carbon Dioxide (21-32) mmol/L Anion Gap (5.0-14.0) mmol/L BUN (7-18) mg/dL Creatinine (0.8-1.3) mg/dL Est Cr Clr Drug Dosing mL/min Estimated GFR (MDRD) (>60) Glucose (74-106) mg/dL Lactic Acid 3.1 H (0.4-2.0) mmol/L Calcium (8.5-10.1) mg/dL Total Bilirubin (0.2-1.0) mg/dL AST (15-37) U/L ALT (12-78) U/L Alkaline Phosphatase (46-116) U/L C-Reactive Protein 19.72 H (0.0-0.3) mg/dL Total Protein (6.4-8.2) g/dL Albumin (3.4-5.0) g/dL Globulin (2.3-3.5) g/dL Albumin/Globulin Ratio (1.2-2.2) Lipase 32 L (73-393) U/L Urine Color (YELLOW) Urine Appearance (CLEAR) Urine pH (5.0-8.0) Ur Specific [place] (1.008-1.030) Urine Protein (NEGATIVE) mg/dL Urine Glucose (UA) (NEGATIVE) mg/dL Urine Ketones (NEGATIVE) mg/dL Urine Occult Blood (NEGATIVE) Urine Nitrite (NEGATIVE) Urine Bilirubin (NEGATIVE) Urine Urobilinogen (0.2-1.0) EU/dL Ur Leukocyte Esterase (NEGATIVE) Urine RBC (0-5) Urine WBC (0-5) Ur Epithelial Cells Amorphous Sediment Urine Bacteria Urine Mucus Result Diagrams: 11/12/19 05:50 11/12/19 05:50 Alex Results Last 24 hrs: Microbiology 11/12/19 09:15 Gram Stain - Final Abdominal Fluid - Aspirate 11/12/19 05:55 Aerobic Blood Culture - Preliminary Blood - Venous - Lab Draw 11/12/19 05:50 Aerobic Blood Culture - Preliminary Blood - Venous Imaging Impressions Last 24 hrs: Chest x-ray-image personally reviewed-lungs clear with no mass, infiltrate or effusion. Heart size is normal. Right upper quadrant ultrasound-gallbladder is thickened and dilated. There is sludge and a few small stones. There is significant concern for acute cholecystitis versus subacute. Sonographic Russell sign was reported as negative. Sepsis Event Note - Evaluation Sepsis Screening Result: Severe Sepsis Risk Current Stage of Sepsis: Severe Sepsis Possible Source of Sepsis: GI Tract/Intra-abdominal - Focused Exam Sepsis Event Note Statement: Focused Sepsis Exam Completed Vital Signs: Vital Signs Temp Pulse Resp BP Pulse Ox 11/12/19 08:27 120 H 18 83/43 L 11/12/19 08:15 118 H 19 83/40 L 11/12/19 07:27 119 H 16 89/41 L 94 L 11/12/19 07:12 119 H 19 89/46 L 95 11/12/19 06:42 121 H 18 93/46 L 98 11/12/19 06:27 128 H 17 85/49 L 99 11/12/19 06:22 125 H 20 84/46 L 99 11/12/19 06:12 116 H 22 H 80/42 L 96 11/12/19 06:10 37.1 C 11/12/19 06:00 122 H 18 86/44 L 97 11/12/19 05:55 123 H 20 87/42 L 91 L 11/12/19 05:54 38.2 C H 133 H 22 H 97/54 L 94 L 11/12/19 05:20 38.2 C H 133 H 18 97/54 L 94 L Respiratory Effort Without Exertion: Other (see below) (Normal) Heart Sounds: Other (see below) (Tachycardic) Capillary Refill, Detail: Less than/Equal to (</=) 2 Seconds Pulse Description: 1+ [place] Peripheral Pulse Location: Dorsalis Pedis Skin Exam (Focused Sepsis): Normal Turgor Date Exam was Performed: 11/12/19 Time Exam was Performed: 11:18 *Q Meaningful Use (ADM) - VTE Risk Assess *Q Each Risk Factor Represents 1 Point: Age 41 - 59 years, Sepsis Total Score 1 Point Risk Factors: 2 Each Risk Factor Represents 2 Points: Laparoscopic surgery greater than 45 minutes Total Score 2 Point Risk Factors: 2 Each Risk Factor Represents 3 Points: None Total Score 3 Point Risk Factors: 0 Each Risk Factor Represents 5 Points: None Total Score 5 Point Risk Factors: 0 Venous Thromboembolism Risk Factor Score *Q: 4 Consult PN Assessment/Plan POD#: 0 Procedures: Procedures OFFICE/OUTPATIENT VISIT NEW (03/21/19) URINALYSIS AUTO W/O SCOPE (05/12/19) X-RAY EXAM HIP UNI 2-3 VIEWS (08/29/19) (1) Severe sepsis SNOMED Code(s): 84116780 Code(s): A41.9 - SEPSIS, UNSPECIFIED ORGANISM; R65.20 - SEVERE SEPSIS WITHOUT SEPTIC SHOCK Current Visit: Yes (2) Hypokalemia SNOMED Code(s): 45105104 Code(s): E87.6 - HYPOKALEMIA Current Visit: Yes (3) Down's syndrome SNOMED Code(s): 56893622 Code(s): Q90.9 - DOWN SYNDROME, UNSPECIFIED Current Visit: No (4) Acute cholecystitis SNOMED Code(s): 60161181 Code(s): K81.0 - ACUTE CHOLECYSTITIS Current Visit: Yes Problem List Initiated/Reviewed/Updated: Yes My Orders Last 24 Hours: My Active Orders 11/12/19 10:50 LACTIC ACID [CHEM] Routine 11/12/19 11:03 Admission Status [Patient Status] [ADT] Routine 11/12/19 11:07 Ondansetron [Zofran ODT] 4 mg PO Q4H PRN Ondansetron [Zofran] 4 mg IVPUSH Q4H PRN 11/12/19 11:15 Dextrose 5%-Lactated Ringers with KCl 20 mEq @ 125 mL/Hr (1000 mL) Dextrose 5%- Lact Ringers w/KCl [D5 LR with 20 mEq KCl] 1,000 ml IV ASDIRECTED Plan: ASSESSMENT AND PLAN - Acute cholecystitis with severe sepsis-patient still borderline hypotensive and tachycardic despite aggressive fluid resuscitation. He may need vasopressor support in the near future. He is on appropriate broad-spectrum antibiotics. Cultures have been obtained. Lactic acid level will be repeated. He is in the intensive care unit. -Agree with current aggressive broad-spectrum antibiotics -Continue IV fluids -Consider vasopressor support if still hypotensive -Follow-up cultures Hypokalemia-will be supplemented. Down syndrome-significant disability at this time. Difficulty with communication. -Continue home medications Maintenance issues - - DVT prophylaxis -mechanical today, enoxaparin started tomorrow - Nutrition -advance per surgical instructions - Cesar catheter -placed in the emergency room for strict intake and output monitoring in a critically ill patient Admission justification -this patient will be admitted for inpatient services and is medically appropriate meeting medical necessity for inpatient admission as outlined in my documentation. I reasonably expect the patient will require inpatient services that span a period time over 2 midnights. I reasonably expect this patient to be discharged or transferred within 96 hours after admission to the [facility]. Morteza Mitchell M.D. Requesting Provider: Dr. Ledesma Date Consult Requested: 11/12/19 Reason for Consult: Severe sepsis Patient History Reviewed: Yes Admission H&P Reviewed: No (Not currently available) Notified Requestor: Yes Time Spent (in minutes): 60
[2019-11-12] MEDS: Dextrose 5%-Lact Ringers w/KCl 1,000 ML IV SCH ×2 (11:25→21:54)
--- NOTE | 2019-11-12 12:03 | CONS ---
DATE OF SERVICE: 11/12/2019 REFERRING PHYSICIAN: CONSULTING PHYSICIAN: Chadwick Ledesma MD REASON FOR CONSULTATION: Abdominal pain. HISTORY OF PRESENT ILLNESS: This is a 58-year-old male who presented to the emergency room with right upper quadrant abdominal pain and a temperature of 101 degrees. The patient is not very communicated due to Alzheimer's and dementia. The patient did undergo ultrasound, which suggested cholelithiasis/cholecystitis. PAST MEDICAL HISTORY: As described above. History of right hip pain, this is described as probably a cadaveric bone transfer of the right leg. SOCIAL HISTORY: He is not a smoker. FAMILY HISTORY: Noncontributory. REVIEW OF SYSTEMS: Per chart as the patient cannot be interviewed. CARDIOVASCULAR: No reported history of myocardial infarction. RESPIRATORY: No current shortness of breath. GASTROINTESTINAL: As above. 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 However, the patient has reportedly been catheterized before without difficulty. NEUROLOGICAL: As described above with Alzheimer's and dementia. PSYCHIATRIC: Also Alzheimer's and dementia. HEMATOLOGICAL: No reported past abnormal bleeding history. PHYSICAL EXAMINATION: VITAL SIGNS: Blood pressure 93/46, pulse 121, respirations 18, 98% on room air. HEENT: Pupils are equal. NECK: Supple. LUNGS: Clear. CARDIOVASCULAR: Regular rhythm and rate. ABDOMEN: Pain with palpation of right upper quadrant. EXTREMITIES: He does move all four. LABORATORY RESULTS: Show white blood cell count of 6000, hemoglobin 13. Basic metabolic panel is essentially normal. Bilirubin is normal. Alkaline phosphatase is slightly elevated. AST and ALT are also elevated. Urinalysis is nitrite negative. Chest x-ray, which I did review and the report is not back, does not show any gross abnormalities. Ultrasound which has been resulted shows sludge and stones, thickened and irregular gallbladder. ASSESSMENT/PLAN: The patient will undergo laparoscopic cholecystectomy. This could be a necrotic gallbladder or just cholecystitis/cholelithiasis. Nonetheless, I discussed with the family and their request and my opinion is to remove the gallbladder. Therefore, I discussed with them the risks, benefits, alternatives, and limitations including, but not limited to, infection, bleeding, and injury to cystic duct, common bile duct injuries, possibility of open surgery and other risks not listed here. The patient understands these risks along with the general risks of surgery and the patient's family understand these risks and wished to proceed. We also discussed that the patient does have some ongoing comorbidities so things such as hematoma, seroma, infections are hard to delineate and the risk is obviously high. Chadwick Ledesma MD /[id number]
[2019-11-12] MEDS ORDERED: Norepinephrine 4 MG in Dextrose 5% in Water 246 ML IV SCH ×2 (12:45)
[2019-11-12] MEDS: Piperacillin/Tazobactam/Dext 3.375 GM in Premix Bag 1 BAG IV SCH ×2 (13:59→19:10)
[2019-11-12] MEDS: Potassium Chloride 10 MEQ Cap.ER PO SCH (14:22)
[2019-11-12] MEDS: Donepezil 10 MG Tab PO SCH (14:22)
[2019-11-12] MEDS: levETIRAcetam 250 MG Tab PO SCH ×2 (14:22→20:45)
[2019-11-12] MEDS: QUEtiapine 25 MG Tab PO SCH ×2 (14:23→20:45)
[2019-11-12] MEDS: Sertraline 50 MG Tab PO SCH (14:23)
[2019-11-12] MEDS: Pantoprazole 40 MG Tab.CR PO SCH (14:23)
[2019-11-12] MEDS: OXcarbazepine 300 MG Tab PO SCH (20:46)
[2019-11-13] MEDS: Piperacillin/Tazobactam/Dext 3.375 GM in Premix Bag 1 BAG IV SCH ×4 (02:09→19:08)
[2019-11-13] MEDS: Donepezil 10 MG Tab PO SCH (08:20)
[2019-11-13] MEDS: Pantoprazole 40 MG Tab.CR PO SCH (08:20)
[2019-11-13] MEDS: Enoxaparin 40 MG/0.4 ML Syringe SUBCUT SCH (08:21)
[2019-11-13] MEDS: levETIRAcetam 250 MG Tab PO SCH ×2 (08:21→20:28)
[2019-11-13] MEDS: QUEtiapine 25 MG Tab PO SCH ×3 (08:22→20:27)
[2019-11-13] MEDS: Potassium Chloride 10 MEQ Cap.ER PO SCH (08:22)
[2019-11-13] MEDS: OXcarbazepine 300 MG Tab PO SCH ×2 (08:23→20:28)
[2019-11-13] MEDS: Sertraline 50 MG Tab PO SCH (08:24)
[2019-11-13] MEDS: Acetaminophen/HYDROcodone 325-5 MG Tab PO PRN ×2 (08:38→20:28)
--- NOTE | 2019-11-13 09:03 | PCM.CONSN ---
- General Info Date of Service: 11/13/19 Subjective Update: Mr. Campo is a 58-year-old gentleman who was admitted through the emergency department yesterday with fever and progressive weakness secondary to cholecystitis. He did undergo laparoscopic cholecystectomy performed by Dr. Ledesma but was found to septic shock during the postoperative period with tachycardia and decreased blood pressures. He was treated through the night with low-dose norepinephrine which stabilized blood pressure and he is doing somewhat better this morning although remains tachycardic. Not tolerating much in the way of oral intake thus far. He is unable to provide a meaningful history concerning recent symptoms or review of systems because of his underlying Down syndrome and associated dementia. - Patient Data Vitals - Most Recent: Last Vital Signs Temp 97.8 F 11/13/19 07:00 Pulse 114 H 11/13/19 08:42 Resp 12 11/13/19 08:42 BP 99/54 L 11/13/19 08:42 Pulse Ox 92 L 11/13/19 08:42 Weight - Most Recent: 160 lb I&O - Last 24 Hours: Intake & Output 11/12/19 11/13/19 11/13/19 22:59 06:59 14:59 Intake Total 1009 1637 Output Total 415 305 Balance 594 1332 Lab Results Last 24 Hours: Laboratory Results - last 24 hr 11/12/19 11/12/19 11/13/19 Range/Units 10:50 15:00 04:10 WBC 18.0 H (4.5-11.0) K/uL RBC 3.43 L (4.30-5.90) M/uL Hgb 11.0 L D (12.0-15.0) g/dL Hct 34.9 L (40.0-54.0) % MCV 102 H (80-98) fL MCH 32 H (27-31) pg MCHC 32 (32-36) % Plt Count 149 L (150-400) K/uL Add Manual Diff Yes Neutrophils % (Manual) 70 H (36-66) % Band Neutrophils % 20 H (5-11) % Lymphocytes % (Manual) 5 L (24-44) % Monocytes % (Manual) 5 (2-6) % Sodium (140-148) mmol/L Potassium (3.6-5.2) mmol/L Chloride (100-108) mmol/L Carbon Dioxide (21-32) mmol/L Anion Gap (5.0-14.0) mmol/L BUN (7-18) mg/dL Creatinine (0.8-1.3) mg/dL Est Cr Clr Drug Dosing mL/min Estimated GFR (MDRD) (>60) Glucose (74-106) mg/dL Lactic Acid 4.8 H 3.0 H (0.4-2.0) mmol/L Calcium (8.5-10.1) mg/dL Total Bilirubin (0.2-1.0) mg/dL AST (15-37) U/L ALT (12-78) U/L Alkaline Phosphatase (46-116) U/L Total Protein (6.4-8.2) g/dL Albumin (3.4-5.0) g/dL Globulin (2.3-3.5) g/dL Albumin/Globulin Ratio (1.2-2.2) // Range/Units 04:10 WBC (4.5-11.0) K/uL RBC (4.30-5.90) M/uL Hgb (12.0-15.0) g/dL Hct (40.0-54.0) % MCV (80-98) fL MCH (27-31) pg MCHC (32-36) % Plt Count (150-400) K/uL Add Manual Diff Neutrophils % (Manual) (36-66) % Band Neutrophils % (5-11) % Lymphocytes % (Manual) (24-44) % Monocytes % (Manual) (2-6) % Sodium 143 (140-148) mmol/L Potassium 4.1 (3.6-5.2) mmol/L Chloride 110 H (100-108) mmol/L Carbon Dioxide 25 (21-32) mmol/L Anion Gap 12.1 (5.0-14.0) mmol/L BUN 15 (7-18) mg/dL Creatinine 0.9 (0.8-1.3) mg/dL Est Cr Clr Drug Dosing 85.50 mL/min Estimated GFR (MDRD) > 60 (>60) Glucose 136 H (74-106) mg/dL Lactic Acid (0.4-2.0) mmol/L Calcium 7.2 L (8.5-10.1) mg/dL Total Bilirubin 0.4 (0.2-1.0) mg/dL AST 101 H (15-37) U/L ALT 162 H (12-78) U/L Alkaline Phosphatase 137 H (46-116) U/L Total Protein 5.1 L (6.4-8.2) g/dL Albumin 1.7 L (3.4-5.0) g/dL Globulin 3.4 (2.3-3.5) g/dL Albumin/Globulin Ratio 0.5 L (1.2-2.2) Alex Results Last 24 Hours: Microbiology 11/12/19 05:55 Aerobic Blood Culture - Preliminary Blood - Venous - Lab Draw Anaerobic Blood Culture - Preliminary 11/12/19 05:50 Aerobic Blood Culture - Preliminary Blood - Venous Anaerobic Blood Culture - Preliminary 11/12/19 09:15 Gram Stain - Final Abdominal Fluid - Aspirate Wound Culture - Preliminary NO GROWTH AFTER 1 DAY Anaerobic Culture - Preliminary NO GROWTH AFTER 1 DAY 11/12/19 05:40 Urine Culture - Preliminary Urine, Bladder NO GROWTH AFTER 1 DAY Med Orders - Current: Current Medications Hydrocodone Bitart/Acetaminophen ([place] 325-5 Mg) 1 tab PO Q4H PRN PRN Reason: Pain (moderate 4-6) Last Admin: 11/13/19 08:38 Dose: 1 tab Benzocaine/Menthol (Cepacol Sore Throat) 1 lozenge MUCMEM Q4H PRN PRN Reason: Sore Throat Ropivacaine 36 ml/Dexamethasone 8 mg/Epinephrine HCl 0.4 mg/ Sodium Chloride 41.6 ml 0 ml NERVRT ASDIRECTED [facility] Last Admin: 11/12/19 09:35 Dose: 80 syringe Docusate Sodium (Colace) 100 mg PO BID PRN PRN Reason: Constipation Donepezil HCl (Aricept) 10 mg PO DAILY [facility] Last Admin: 11/13/19 08:20 Dose: 10 mg Enoxaparin Sodium (Lovenox) 40 mg SUBCUT DAILY [facility] Last Admin: 11/13/19 08:21 Dose: 40 mg Hydrocortisone (Hydrocortisone 1% Crm) 0 gm TOP BID PRN PRN Reason: Rash Hydroxyzine HCl (Vistaril) 100 mg IM Q4H PRN PRN Reason: Breakthrough Pain Piperacillin/Tazobactam/ (Dextrose 3.375 gm/ Premix) 50 mls @ 100 mls/hr IV Q6H [facility] Last Admin: 11/13/19 07:47 Dose: 100 mls/hr Potassium Cl/Dextrose/Lact Ringer's (D5 Lr With 20 Meq Kcl) 1,000 mls @ 125 mls /hr IV ASDIRECTED [facility] Last Admin: 11/12/19 21:54 Dose: 125 mls/hr Vancomycin HCl 1 gm/ Sodium (Chloride) 250 mls @ 166.667 mls/hr IV Q12H [facility] Last Admin: 11/12/19 23:46 Dose: 166.667 mls/hr Norepinephrine Bitartrate 4 mg (/ Dextrose/Water) 250 mls @ 7.5 mls/hr IV TITRATE [facility]; Protocol Last Titration: 11/13/19 06:48 Dose: 0 mcg/min, 0 mls/hr Levetiracetam (Keppra) 750 mg PO BID [facility] Last Admin: 11/13/19 08:21 Dose: 750 mg Ondansetron HCl (Zofran Odt) 4 mg PO Q4H PRN PRN Reason: Nausea/Vomiting Ondansetron HCl (Zofran) 4 mg IVPUSH Q4H PRN PRN Reason: Nausea/Vomiting Oxcarbazepine (Trileptal) 150 mg PO BID [facility] Last Admin: 11/13/19 08:23 Dose: 150 mg Pantoprazole Sodium (Protonix) 40 mg PO ACBREAKFAST [facility] Last Admin: 11/13/19 08:20 Dose: 40 mg Potassium Chloride (Potassium Chloride) 10 meq PO DAILY [facility] Last Admin: 11/13/19 08:22 Dose: 10 meq Quetiapine Fumarate (Seroquel) 50 mg PO TID [facility] Last Admin: 11/13/19 08:22 Dose: 50 mg Sertraline HCl (Zoloft) 50 mg PO DAILY [facility] Last Admin: 11/13/19 08:24 Dose: 50 mg Zolpidem Tartrate (Ambien) 5 mg PO BEDTIME PRN PRN Reason: Sleep Discontinued Medications Acetaminophen (Tylenol) 650 mg RECTAL NOW ONE Stop: 11/12/19 05:59 Last Admin: 11/12/19 06:03 Dose: 650 mg Bupivacaine HCl (Marcaine 0.5%) Confirm Administered Dose 50 ml .ROUTE .[facility] ONE Stop: 11/12/19 08:35 Last Admin: 11/12/19 09:29 Dose: 20 ml Dexamethasone (Dexamethasone) Confirm Administered Dose 4 mg .ROUTE .[facility] ONE Stop: 11/12/19 08:42 Fentanyl (Sublimaze) Confirm Administered Dose 250 mcg .ROUTE .[facility] ONE Stop: 11/12/19 08:42 Glycopyrrolate (Robinul) Confirm Administered Dose 1 mg .ROUTE .[facility] ONE Stop: 11/12/19 08:42 Sodium Chloride (Normal Saline) 1,000 mls @ 999 mls[facility] Last Admin: 11/12/19 05:40 Dose: 999 mls/hr Sodium Chloride (Normal Saline) 1,000 mls @ 999 mls/hr IV [facility] Last Admin: 11/12/19 06:30 Dose: 999 mls/hr Piperacillin Sod/Tazobactam (Sod 4.5 gm/ Sodium Chloride) 100 mls @ 100 mls/hr IV ONETIME ONE Stop: 11/12/19 07:16 Last Admin: 11/12/19 06:35 Dose: 100 mls/hr Aztreonam 1 gm/ Sodium (Chloride) 50 mls @ 100 mls/hr IV ONETIME ONE Stop: 11/12/19 07:01 Last Admin: 11/12/19 06:53 Dose: 100 mls/hr Sodium Chloride (Normal Saline) Confirm Administered Dose 100 mls @ as directed .ROUTE .[facility] ONE Stop: 11/12/19 06:33 Last Admin: 11/12/19 06:40 Dose: Not Given Sodium Chloride (Normal Saline) Confirm Administered Dose 100 mls @ as directed .ROUTE .[facility] ONE Stop: 11/12/19 06:34 Last Admin: 11/12/19 06:40 Dose: Not Given Sodium Chloride (Normal Saline) 1,000 mls @ 500 mls/hr IV [facility] Last Admin: 11/12/19 07:36 Dose: 500 mls/hr Lactated Ringer's (Ringers, Lactated) Confirm Administered Dose 1,000 mls @ as directed .ROUTE .[facility] ONE Stop: 11/12/19 09:01 Sodium Chloride (Normal Saline) Confirm Administered Dose 10 mls @ as directed .ROUTE .[facility] ONE Stop: 11/12/19 09:05 Lactated Ringer's (Ringers, Lactated) Confirm Administered Dose 1,000 mls @ as directed .ROUTE .[facility] ONE Stop: 11/12/19 09:08 Lactated Ringer's (Ringers, Lactated) Confirm Administered Dose 1,000 mls @ as [facility] Stop: 11/12/19 09:38 Lactated Ringer's (Ringers, Lactated) 1,000 ml IRR .[facility] ONE Stop: 11/12/19 09:16 Last Admin: 11/12/19 09:15 Dose: 1,000 ml Lidocaine/Epinephrine (Xylocaine 1% With Epinephrine 1:100,000) Confirm Administered Dose 50 ml .ROUTE .[facility] ONE Stop: 11/12/19 08:35 Last Admin: 11/12/19 09:29 Dose: 20 ml Neostigmine Methylsulfate (Neostigmine) Confirm Administered Dose 5 mg .ROUTE .[facility] ONE Stop: 11/12/19 08:42 Ondansetron HCl (Zofran) Confirm Administered Dose 4 mg .ROUTE .[facility] ONE Stop: 11/12/19 08:42 Phenylephrine HCl (Bobby-Synephrine) Confirm Administered Dose 10 mg .ROUTE .[facility] ONE Stop: 11/12/19 09:05 Piperacillin Sod/Tazobactam Sod (Zosyn) Confirm Administered Dose 4.5 gm .ROUTE .[facility] ONE Stop: 11/12/19 06:31 Last Admin: 11/12/19 06:39 Dose: Not Given Propofol (Diprivan 20 Ml) Confirm Administered Dose 200 mg .ROUTE .[facility] ONE Stop: 11/12/19 08:42 Rocuronium [place] (Zemuron) Confirm Administered Dose 50 mg .ROUTE .[facility] ONE Stop: 11/12/19 08:42 Succinylcholine Chloride (Quelicin) Confirm Administered Dose 200 mg .ROUTE .[facility] ONE Stop: 11/12/19 08:42 - Exam General: Alert, Cooperative, Moderate Distress Lungs: Clear to Auscultation, Normal Respiratory Effort Cardiovascular: Regular Rate, Regular Rhythm, No Murmurs GI/Abdominal Exam: Soft, No Organomegaly, Tender. No: Distended, Guarding, Rigid, Rebound Extremities: Non-Tender, No Pedal Edema Sepsis Event Note - Evaluation Sepsis Screening Result: Severe Sepsis Risk - Focused Exam Vital Signs: Vital Signs Temp Pulse Resp BP BP Pulse Ox 11/13/19 08:42 114 H 12 99/54 L 92 L 11/13/19 08:00 109 H 19 99/54 L 90 L 11/13/19 07:00 97.8 F 105 H 17 106/62 106/62 95 11/13/19 06:00 107 H 19 101/63 92 L 11/13/19 05:27 94 L 11/13/19 05:00 101 H 21 H 106/62 93 L 11/13/19 04:00 97.8 F 109 H 18 102/59 L 96 11/13/19 03:00 100 17 101/56 L 96 11/13/19 02:00 105 H 19 95/55 L 93 L 11/13/19 01:00 114 H 20 95/55 L 97 11/13/19 00:00 97.3 F 102 H 18 89/50 L 94 L 11/12/19 23:00 112 H 19 99/58 L 95 11/12/19 22:00 117 H 21 H 99/54 L 96 Date Exam was Performed: 11/13/19 Time Exam was Performed: 09:03 Consult PN Assessment/Plan Procedures: Procedures OFFICE/OUTPATIENT VISIT NEW (03/21/19) URINALYSIS AUTO W/O SCOPE (05/12/19) X-RAY EXAM HIP UNI 2-3 VIEWS (08/29/19) Problem List Initiated/Reviewed/Updated: Yes My Orders Last 24 Hours: My Active Orders 11/14/19 05:00 CBC WITH AUTO DIFF [HEME] Timed COMPREHENSIVE METABOLIC PN,CMP [CHEM] Timed MAGNESIUM [CHEM] Timed Plan: ASSESSMENT AND PLAN Acute cholecystitis with septic shock-received vigorous fluid replacement yesterday and despite that remained hypotensive so he was placed on IV norepinephrine during the night. Blood pressure is stabilized and he is currently off of the IV norepinephrine. Blood cultures are growing gram- negative rods, final ID and sensitivities pending. -To new vancomycin, Zosyn, and aztreonam pending culture results -Continue IV fluids -Follow-up cultures Hypokalemia-will be supplemented. Down syndrome-significant disability at this time. Difficulty with communication. -Continue home medications Maintenance issues - - DVT prophylaxis -mechanical today, enoxaparin started tomorrow - Nutrition -advance per surgical instructions - Cesar catheter -placed in the emergency room for strict intake and output monitoring in a critically ill patient Admission justification -this patient will be admitted for inpatient services and is medically appropriate meeting medical necessity for inpatient admission as outlined in my documentation. I reasonably expect the patient will require inpatient services that span a period time over 2 midnights. I reasonably expect this patient to be discharged or transferred within 96 hours after admission to the [facility].
--- NOTE | 2019-11-13 12:57 | CR ---
CHEST: Portable 11/12/2019 at 6:06 AM CLINICAL HISTORY:Fever COMPARISON:None FINDINGS: The heart size, pulmonary vascularity and hilar structures are normal. There is some minimal patchy density in the left the infrahilar region. Some of this may be chronic. IMPRESSION: Minimal patchy left lower lobe density. An early infiltrate is not excluded. If clinically relevant, 2 view chest is recommended.
--- NOTE | 2019-11-13 14:21 | OR ---
DATE OF PROCEDURE: 11/12/2019 SURGEON: Chadwick Ledesma MD PROCEDURE: Transversus abdominis plane block, bilaterally. COMPLICATIONS: None. AIRPORT ELECTRICIAN: None. RISKS: Risks, benefits, alternatives, and limitations including but not limited to infection, bleeding, and injury to abdominal structures were explained. The patient wished to proceed. PROCEDURE IN DETAIL: The patient was placed in supine position. The right side was addressed first. Using 11 megahertz ultrasound probe, the transversus plane was identified, and 80% of solution was injected. This was then performed in same manner, same fashion, same technique, and in the same sequence using the same equipment on the other side. The patient tolerated the procedure well. Chadwick Ledesma MD /[id number]
--- NOTE | 2019-11-13 15:37 | OR ---
DATE OF PROCEDURE: 11/12/2019 SURGEON: Chadwick Ledesma MD PROCEDURE: 1. Laparoscopic cholecystectomy (16031). 2. Drainage of intraabdominal peritoneal fluid collection (89845). PREOPERATIVE DIAGNOSES: 1. Cholelithiasis. 2. Cholecystitis. POSTOPERATIVE DIAGNOSES: 1. Cholelithiasis. 2. Cholecystitis. ANESTHESIA: General anesthetic. FINDINGS: 1. Very thick gallbladder with significant amount of inflammation and omental wrapping. 2. Peritonitis due to a fluid collection in the right upper quadrant (suctioned , cultured, and irrigated). COMPLICATIONS: None. LABORER HOISTING: None. INDICATIONS: A 58-year-old noncommunicative male with right upper quadrant abdominal pain on palpation. Imaging showing gallbladder inflammation requiring laparoscopic cholecystectomy. RISK: The family were explained risks, benefits, alternatives, and limitations including, but not limited to infection, bleeding, cystic duct injury, common bile duct injury, cystic duct leaks, hematoma, seroma, the possibility of sepsis and its sequelae, and other risks not listed here. The patient's family understood these risks and wished to proceed. PROCEDURE IN DETAIL: The patient was placed in supine position. A supraumbilical curvilinear incision was made. A Veress needle was used to enter the abdomen without abnormality. A drop test was performed without abnormality. The abdomen was subsequently insufflated. The Optiview trocar was entered and no evidence of enterotomy or injury was noted. The gallbladder was retracted cephalad. The infundibulum was retracted inferolaterally. The gallbladder itself was very densely adhesed and very inflamed. The blunt dissection continued for approximately another 40 minutes. A single pulsatile structure was noted entering the gallbladder, and a single nonpulsatile structure was noted entering the gallbladder. These 2 were clipped x3 and subsequently transected. The remaining one-third of the gallbladder was removed off the gallbladder bed without difficulty. Minimal bleeding was on the gallbladder bed, although there was a large amount of edema. The pressure was dropped to 6 within the abdomen and held, and no abnormal bleeding was noted. The abdomen was then thoroughly irrigated. Prior to removal of the gallbladder, during the initial entry into the abdomen, a fluid collection was noted in the right upper abdomen. This was souza in nature and concerning for infection. This was causing peritonitis in that area and not related to appendicitis. This was cultured and then suctioned out and irrigated. The anterior plane was then inspected for injury, and none was noted. The air was removed. The wounds were closed with 3-0 Vicryl and 4-0 Vicryl in interrupted running fashion and Dermabond was applied. The patient tolerated the procedure well. Chadwick Ledesma MD /[id number] MTDD
--- NOTE | 2019-11-13 15:49 | PN ---
DATE OF SERVICE: 11/13/2019 SUBJECTIVE: The patient is unchanged from yesterday. The subjective interpretation is difficult to appreciate in this patient due to his Down's and Alzheimer's. OBJECTIVE: VITAL SIGNS: The patient remains with the same hypotensive standard. SKIN: His incision is healing well. ASSESSMENT: Status post laparoscopic cholecystectomy. PLAN: 1. Infectious Disease: The patient remains on broad-spectrum antibiotics. His blood cultures all grew gram-negative rods. Hospitalist service continues to manage infectious etiology. 2. Diet: He is on general diet and awaiting further GI activity. 3. General Disposition: No specific changes. 4. Fluid, Electrolytes: Per hospitalist service. 5. GI: Bilirubin was normal. LFTs have improved. Chadwick Ledesma MD /[id number]
[2019-11-13] MEDS ORDERED: Dextrose 5%-Lact Ringers w/KCl 1,000 ML IV SCH (18:30)
[2019-11-14] MEDS: Acetaminophen/HYDROcodone 325-5 MG Tab PO PRN (02:15)
[2019-11-14] MEDS: Piperacillin/Tazobactam/Dext 3.375 GM in Premix Bag 1 BAG IV SCH ×3 (02:19→19:24)
[2019-11-14] MEDS: QUEtiapine 25 MG Tab PO SCH ×4 (08:51→20:39)
[2019-11-14] MEDS: Pantoprazole 40 MG Delayed-Release Granules 1 Packet PO SCH (08:51)
[2019-11-14] MEDS: levETIRAcetam 250 MG Tab PO SCH ×2 (08:53→20:39)
[2019-11-14] MEDS: Potassium Chloride 10 MEQ Cap.ER PO SCH (08:53)
[2019-11-14] MEDS: Donepezil 10 MG Tab PO SCH (08:54)
[2019-11-14] MEDS: Sertraline 50 MG Tab PO SCH (08:54)
[2019-11-14] MEDS: Enoxaparin 40 MG/0.4 ML Syringe SUBCUT SCH (08:54)
[2019-11-14] MEDS: OXcarbazepine 300 MG Tab PO SCH ×2 (08:58→20:39)
[2019-11-14] MEDS: Magnesium Sulfate/Water 2 GM in Premix Bag 1 BAG IV SCH ×2 (10:10→16:02)
[2019-11-14] MEDS: Dextrose 5%-Lactated Ringers 1,000 ML IV SCH (11:10)
--- NOTE | 2019-11-14 12:55 | PCM.PN ---
- General Info Date of Service: 11/14/19 Subjective Update: Mr. Campo has continued to intermittently require use of norepinephrine to maintain adequate blood pressure and he continues to experience persistent sinus tachycardia. He is remained afebrile and respiratory status is stable. Blood cultures are growing out pansensitive E. coli. He remains fairly weak and lethargic, does arouse to physical stimulation. He is unable to provide a meaningful history concerning symptoms and review of systems because of current lethargy as well as underlying Down syndrome with cognitive impairment. - Patient Data Vitals - Most Recent: Last Vital Signs Temp 98.9 F 11/14/19 10:00 Pulse 124 H 11/14/19 11:00 Resp 18 11/14/19 11:00 BP 118/65 11/14/19 11:00 Pulse Ox 94 L 11/14/19 11:00 Weight - Most Recent: 160 lb I&O - Last 24 Hours: Intake & Output 11/13/19 11/14/19 11/14/19 22:59 06:59 14:59 Intake Total 1959 1122 100 Output Total 422 216 120 Balance 1537 906 -20 Lab Results Last 24 Hours: Laboratory Results - last 24 hr 11/14/19 11/14/19 Range/Units 05:30 05:30 WBC 15.5 H (4.5-11.0) K/uL RBC 3.32 L (4.30-5.90) M/uL Hgb 10.8 L (12.0-15.0) g/dL Hct 34.0 L (40.0-54.0) % MCV 102 H (80-98) fL MCH 33 H (27-31) pg MCHC 32 (32-36) % Plt Count 145 L (150-400) K/uL Add Manual Diff Yes Neutrophils % (Manual) 81 H (36-66) % Band Neutrophils % 13 H (5-11) % Lymphocytes % (Manual) 3 L (24-44) % Monocytes % (Manual) 3 (2-6) % Sodium 143 (140-148) mmol/L Potassium 3.7 (3.6-5.2) mmol/L Chloride 110 H (100-108) mmol/L Carbon Dioxide 24 (21-32) mmol/L Anion Gap 12.7 (5.0-14.0) mmol/L BUN 12 (7-18) mg/dL Creatinine 0.8 (0.8-1.3) mg/dL Est Cr Clr Drug Dosing 96.19 mL/min Estimated GFR (MDRD) > 60 (>60) Glucose 97 (74-106) mg/dL Calcium 7.4 L (8.5-10.1) mg/dL Magnesium 1.6 L (1.8-2.4) mg/dL Total Bilirubin 0.5 (0.2-1.0) mg/dL AST 68 H (15-37) U/L ALT 139 H (12-78) U/L Alkaline Phosphatase 153 H (46-116) U/L Total Protein 5.2 L (6.4-8.2) g/dL Albumin 1.6 L (3.4-5.0) g/dL Globulin 3.6 H (2.3-3.5) g/dL Albumin/Globulin Ratio 0.4 L (1.2-2.2) Alex Results Last 24 Hours: Microbiology 11/12/19 09:15 Gram Stain - Final Abdominal Fluid - Aspirate Wound Culture - Preliminary NO GROWTH AFTER 2 DAYS Anaerobic Culture - Preliminary NO GROWTH AFTER 2 DAYS 11/12/19 05:40 Urine Culture - Final Urine, Bladder NO GROWTH AFTER 2 DAYS 11/12/19 05:55 Aerobic Blood Culture - Final Blood - Venous - Lab Draw Escherichia Coli Anaerobic Blood Culture - Final Escherichia Coli 11/12/19 05:50 Aerobic Blood Culture - Final Blood - Venous Escherichia Coli Anaerobic Blood Culture - Final Escherichia Coli Med Orders - Current: Current Medications Hydrocodone Bitart/Acetaminophen ([place]a 325-5 Mg) 1 tab PO Q4H PRN PRN Reason: Pain (moderate 4-6) Last Admin: 11/14/19 02:15 Dose: 1 tab Benzocaine/Menthol (Cepacol Sore Throat) 1 lozenge MUCMEM Q4H PRN PRN Reason: Sore Throat Docusate Sodium (Colace) 100 mg PO BID PRN PRN Reason: Constipation Donepezil HCl (Aricept) 10 mg PO DAILY [facility] Last Admin: 11/14/19 08:54 Dose: 10 mg Enoxaparin Sodium (Lovenox) 40 mg SUBCUT DAILY [facility] Last Admin: 11/14/19 08:54 Dose: 40 mg Hydrocortisone (Hydrocortisone 1% Crm) 0 gm TOP BID PRN PRN Reason: Rash Hydroxyzine HCl (Vistaril) 100 mg IM Q4H PRN PRN Reason: Breakthrough Pain Norepinephrine Bitartrate 4 mg (/ Dextrose/Water) 250 mls @ 7.5 mls/hr IV TITRATE [facility]; Protocol Last Titration: 11/14/19 02:00 Dose: 0 mcg/min, 0 mls/hr Magnesium Sulfate 2 gm/ Premix 50 mls @ 25 mls/hr IV Q6H [facility] Stop: 11/14/19 17:59 Last Admin: 11/14/19 10:10 Dose: 25 mls/hr Dextrose/Lactated Ringer's (Dextrose 5%-Lactated Ringers) 1,000 mls @ 75 mls/ hr IV ASDIRECTED [facility] Last Admin: 11/14/19 11:10 Dose: 75 mls/hr Potassium Chloride 40 meq/ (Premix) 100 mls @ 25 mls/hr IV ONETIME ONE Stop: 11/14/19 16:48 Ceftazidime 1 gm/ Sodium (Chloride) 50 mls @ 100 mls/hr IV Q8H [facility] Lactobacillus Rhamnosus (Culturelle) 1 cap PO BID [facility] Levetiracetam (Keppra) 750 mg PO BID [facility] Last Admin: 11/14/19 08:53 Dose: 750 mg Magnesium Oxide (Magnesium Oxide) 400 mg PO BID [facility] Ondansetron HCl (Zofran Odt) 4 mg PO Q4H PRN PRN Reason: Nausea/Vomiting Ondansetron HCl (Zofran) 4 mg IVPUSH Q4H PRN PRN Reason: Nausea/Vomiting Oxcarbazepine (Trileptal) 150 mg PO BID [facility] Last Admin: 11/14/19 08:58 Dose: 150 mg Pantoprazole Sodium (Protonix Granules) 40 mg PO DAILY@0730 [facility] Last Admin: 11/14/19 08:51 Dose: 40 mg Potassium Chloride (Potassium Chloride) 10 meq PO DAILY [facility] Last Admin: 11/14/19 08:53 Dose: 10 meq Quetiapine Fumarate (Seroquel) 50 mg PO TID [facility] Last Admin: 11/14/19 08:51 Dose: 50 mg Sertraline HCl (Zoloft) 50 mg PO DAILY [facility] Last Admin: 04/28/20 08:54 Dose: 50 mg Zolpidem Tartrate (Ambien) 5 mg PO BEDTIME PRN PRN Reason: Sleep Discontinued Medications Acetaminophen (Tylenol) 650 mg RECTAL NOW ONE Stop: 11/12/19 05:59 Last Admin: 11/12/19 06:03 Dose: 650 mg Bupivacaine HCl (Marcaine 0.5%) Confirm Administered Dose 50 ml .ROUTE .STK-MED ONE Stop: 11/12/19 08:35 Last Admin: 11/12/19 09:29 Dose: 20 ml Ropivacaine 36 ml/Dexamethasone 8 mg/Epinephrine HCl 0.4 mg/ Sodium Chloride 41.6 ml [facility] Last Admin: 11/12/19 09:35 Dose: 80 syringe Dexamethasone (Dexamethasone) Confirm Administered Dose 4 mg .ROUTE .STK-MED ONE Stop: 11/12/19 08:42 Fentanyl (Sublimaze) Confirm Administered Dose 250 mcg .ROUTE .STK-MED ONE Stop: 11/12/19 08:42 Glycopyrrolate (Robinul) Confirm Administered Dose 1 mg .ROUTE .STK-MED ONE Stop: 11/12/19 08:42 Sodium Chloride (Normal Saline) 1,000 mls @ 999 mls/hr IV [facility] Last Admin: 11/12/19 05:40 Dose: 999 mls/hr Sodium Chloride (Normal Saline) 1,000 mls @ 999 mls/hr IV [facility] Last Admin: 11/12/19 06:30 Dose: 999 mls/hr Piperacillin Sod/Tazobactam (Sod 4.5 gm/ Sodium Chloride) 100 mls @ 100 mls/hr IV ONETIME ONE Stop: 11/12/19 07:16 Last Admin: 11/12/19 06:35 Dose: 100 mls/hr Aztreonam 1 gm/ Sodium (Chloride) 50 mls @ 100 mls/hr IV ONETIME ONE Stop: 11/12/19 07:01 Last Admin: 11/12/19 06:53 Dose: 100 mls/hr Sodium Chloride (Normal Saline) Confirm Administered Dose 100 mls @ as directed .ROUTE .STK-MED ONE Stop: 11/12/19 06:33 Last Admin: 11/12/19 06:40 Dose: Not Given Sodium Chloride (Normal Saline) Confirm Administered Dose 100 mls @ as directed .ROUTE .STK-MED ONE Stop: 11/12/19 06:34 Last Admin: 11/12/19 06:40 Dose: Not Given Sodium Chloride (Normal Saline) 1,000 mls @ 500 mls/hr IV ASDIRECTED [facility] Last Admin: 11/12/19 07:36 Dose: 500 mls/hr Lactated Ringer's (Ringers, Lactated) Confirm Administered Dose 1,000 mls @ as directed .ROUTE .STK-MED ONE Stop: 11/12/19 09:01 Sodium Chloride (Normal Saline) Confirm Administered Dose 10 mls @ as directed .ROUTE .STK-MED ONE Stop: 11/12/19 09:05 Lactated Ringer's (Ringers, Lactated) Confirm Administered Dose 1,000 mls @ as directed .ROUTE .STK-MED ONE Stop: 11/12/19 09:08 Lactated Ringer's (Ringers, Lactated) Confirm Administered Dose 1,000 mls @ as directed .ROUTE .STK-MED ONE Stop: 11/12/19 09:38 Piperacillin/Tazobactam/ (Dextrose 3.375 gm/ Premix) 50 mls @ 100 mls/hr IV Q6H [facility] Last Admin: 11/14/19 07:56 Dose: 100 mls/hr Potassium Cl/Dextrose/Lact Ringer's (D5 Lr With 20 Meq Kcl) 1,000 mls @ 125 mls /hr IV ASDIRECTED [facility] Last Admin: 11/12/19 21:54 Dose: 125 mls/hr Vancomycin HCl 1 gm/ Sodium (Chloride) 250 mls @ 166.667 mls/hr IV Q12H [facility] Last Admin: 11/14/19 00:19 Dose: 166.667 mls/hr Potassium Cl/Dextrose/Lact Ringer's (D5 Lr With 20 Meq Kcl) 1,000 mls @ 75 mls/ hr IV ASDIRECTED [facility] Last Admin: 11/13/19 18:42 Dose: 75 mls/hr Lactated Ringer's (Ringers, Lactated) 1,000 ml IRR .STK-MED ONE Stop: 11/12/19 09:16 Last Admin: 11/12/19 09:15 Dose: 1,000 ml Lidocaine/Epinephrine (Xylocaine 1% With Epinephrine 1:100,000) Confirm Administered Dose 50 ml .ROUTE .STK-MED ONE Stop: 11/12/19 08:35 Last Admin: 11/12/19 09:29 Dose: 20 ml Neostigmine Methylsulfate (Neostigmine) Confirm Administered Dose 5 mg .ROUTE .STK-MED ONE Stop: 11/12/19 08:42 Ondansetron HCl (Zofran) Confirm Administered Dose 4 mg .ROUTE .STK-MED ONE Stop: 11/12/19 08:42 Pantoprazole Sodium (Protonix) 40 mg PO [facility] Last Admin: 11/13/19 08:20 Dose: 40 mg Phenylephrine HCl (Bobby-Synephrine) Confirm Administered Dose 10 mg .ROUTE .STK- MED ONE Stop: 11/12/19 09:05 Piperacillin Sod/Tazobactam Sod (Zosyn) Confirm Administered Dose 4.5 gm .ROUTE .STK-MED ONE Stop: 11/12/19 06:31 Last Admin: 11/12/19 06:39 Dose: Not Given Propofol (Diprivan 20 Ml) Confirm Administered Dose 200 mg .ROUTE .STK-MED ONE Stop: 11/12/19 08:42 Rocuronium Pinon (Zemuron) Confirm Administered Dose 50 mg .ROUTE .STK-MED ONE Stop: 11/12/19 08:42 Succinylcholine Chloride (Quelicin) Confirm Administered Dose 200 mg .ROUTE .STK -MED ONE Stop: 11/12/19 08:42 - Exam Quality Assessment: DVT Prophylaxis General: Mild Distress, Lethargic Lungs: Clear to Auscultation, Normal Respiratory Effort Cardiovascular: Regular Rhythm, No Murmurs, Tachycardia GI/Abdominal Exam: Soft, No Organomegaly, Tender. No: Distended, Guarding, Rigid, Rebound Extremities: Non-Tender, No Pedal Edema Skin: Warm, Dry Sepsis Event Note - Evaluation Sepsis Screening Result: Severe Sepsis Risk - Focused Exam Vital Signs: Vital Signs Temp Pulse Resp BP Pulse Ox 11/14/19 11:00 124 H 18 118/65 94 L 11/14/19 10:00 98.9 F 130 H 16 115/57 L 96 11/14/19 09:00 99 F 125 H 21 H 105/61 97 11/14/19 08:00 122 H 20 98/60 11/14/19 07:00 97.8 F 122 H 18 113/53 L 20 L 11/14/19 06:00 123 H 26 H 117/60 89 L 11/14/19 05:00 125 H 22 H 104/58 L 92 L 11/14/19 04:00 97.9 F 121 H 20 114/61 94 L 11/14/19 03:00 120 H 20 116/59 L 95 11/14/19 02:00 123 H 21 H 107/64 92 L 11/14/19 01:00 118 H 19 107/63 86 L Date Exam was Performed: 11/14/19 Time Exam was Performed: 12:56 - Problem List Review Problem List Initiated/Reviewed/Updated: Yes - My Orders Last 24 Hours: My Active Orders 11/14/19 09:30 Magnesium Oxide 400 mg PO BID 11/14/19 10:00 Magnesium Sulfate/Water [Magnesium Sulfate in Water Premix] 2 gm Premix Bag 1 bag IV Q6H 11/14/19 11:15 Dextrose 5%-Lactated Ringers 1,000 ml IV ASDIRECTED 11/14/19 12:49 Potassium Chloride Riders [KCL 40 MEQ in Water 100 ML] 40 meq Premix Bag 1 bag IV ONETIME 11/14/19 13:00 Lactobacillus Rhamnosus GG [Culturelle] 1 cap PO BID cefTAZidime Pentahydrate [Fortaz] 1 gm Sodium Chloride 0.9% [Normal Saline] 50 ml IV Q8H 11/15/19 05:00 CBC WITH AUTO DIFF [HEME] Timed COMPREHENSIVE METABOLIC PN,CMP [CHEM] Timed MAGNESIUM [CHEM] Timed - Plan Plan:: ASSESSMENT AND PLAN Acute cholecystitis with septic shock-underlying blood pressures with persistent sinus tachycardia. Continues to require intermittent use of norepinephrine to maintain adequate blood pressure. Remains weak and lethargic , respiratory status stable. Blood cultures have grown out pansensitive E. coli. -Change antibiotic therapy to ceftazidime 1 g IV every 8 hours -Continue IV fluids until oral intake improves Hypokalemia-resolved -Continue to monitor Down syndrome-significant disability at this time. Difficulty with communication. -Continue home medications Maintenance issues - - DVT prophylaxis -mechanical today, enoxaparin started tomorrow - Nutrition -advance per surgical instructions - Cesar catheter -placed in the emergency room for strict intake and output monitoring in a critically ill patient Admission justification -this patient will be admitted for inpatient services and is medically appropriate meeting medical necessity for inpatient admission as outlined in my documentation. I reasonably expect the patient will require inpatient services that span a period time over 2 midnights. I reasonably expect this patient to be discharged or transferred within 96 hours after admission to the [facility].
[2019-11-14] MEDS: Potassium Chloride 20 MEQ, Lidocaine 1% 2 ML in Sodium Chloride 0.9% 100 ML IV SCH ×2 (13:59→16:57)
[2019-11-14] MEDS: Magnesium Oxide 400 MG Tab PO SCH ×2 (13:59→20:39)
[2019-11-14] MEDS: Lactobacillus Rhamnosus GG (Probiotic) Cap PO SCH ×3 (13:59→20:39)
[2019-11-14] MEDS ORDERED: Lactated Ringers 1,000 ML IV SCH (14:00)
--- NOTE | 2019-11-14 16:26 | CRLCR ---
INDICATION: Hypoxia. TECHNIQUE: Portable AP upright chest radiograph. COMPARISON: 11/12/2019. FINDINGS: Stable heart size, within normal limits for portable. TECHNIQUE: There are new patchy opacities in the right lung base. There is also a new left lower lobe retrocardiac opacity with probable air bronchogram in the left lower lobe. No pneumothorax. No definite pleural effusion. There are no acute osseous abnormalities identified. Cholecystectomy clips. IMPRESSION: 1. New patchy opacities in right lower lung and in left lung base could be due to aspiration, multifocal pneumonia, or atelectasis. Left lung base opacity could be due to left lower lobe collapse. Dictated by Michael Jain MD @ Nov 14 2019 4:21PM Signed by Dr. Michael Jain @ Nov 14 2019 4:24PM
[2019-11-14] MEDS: Levofloxacin/Dextrose 5%-Water 750 MG in Premix Bag 1 BAG IV SCH (16:59)
[2019-11-15] MEDS: Dextrose 5%-Lactated Ringers 1,000 ML IV SCH ×3 (00:09→14:59)
[2019-11-15] MEDS: Piperacillin/Tazobactam/Dext 3.375 GM in Premix Bag 1 BAG IV SCH ×4 (02:02→20:25)
[2019-11-15] MEDS: Donepezil 10 MG Tab PO SCH (08:33)
[2019-11-15] MEDS: levETIRAcetam 250 MG Tab PO SCH ×2 (08:35→20:11)
[2019-11-15] MEDS: Lactobacillus Rhamnosus GG (Probiotic) Cap PO SCH ×2 (08:35→20:11)
[2019-11-15] MEDS: Enoxaparin 40 MG/0.4 ML Syringe SUBCUT SCH (08:36)
[2019-11-15] MEDS: Magnesium Oxide 400 MG Tab PO SCH ×2 (08:36→20:11)
[2019-11-15] MEDS: Potassium Chloride 10 MEQ Cap.ER PO SCH (08:36)
[2019-11-15] MEDS: OXcarbazepine 300 MG Tab PO SCH ×2 (08:37→20:11)
[2019-11-15] MEDS: QUEtiapine 25 MG Tab PO SCH ×3 (08:37→20:11)
--- NOTE | 2019-11-15 08:38 | PN ---
DATE OF SERVICE: 11/14/2019 SUBJECTIVE: The patient continues to slowly improve. He is nonverbal as his baseline. No specific concerns from nursing staff. OBJECTIVE: VITAL SIGNS: Vital signs are improving. Temperature 98.9, blood pressure 115/64, pulse 124. CARDIOVASCULAR: Regular rhythm and rate. RESPIRATORY: Lungs are clear to auscultation bilaterally. SKIN: Incision healing well. ASSESSMENT AND PLAN: 1. Status post cholecystectomy. 2. Septic shock. As far as gallbladder is concerned, the patient continues to do well. His sepsis has improved, and his blood pressure has improved. Continue to manage with hospitalist service. Please see their notes for further details. Chadwick Ledesma MD /[id number]
[2019-11-15] MEDS: Pantoprazole 40 MG Delayed-Release Granules 1 Packet PO SCH (08:39)
[2019-11-15] MEDS: Sertraline 50 MG Tab PO SCH (08:39)
--- NOTE | 2019-11-15 09:17 | PCM.PN ---
- General Info Date of Service: 11/15/19 Subjective Update: Mr. Campo experience significant hypoxia yesterday, blood gases showed no CO2 retention. Chest x-ray showed bilateral infiltrates consistent with possible aspiration. He is more stable this morning currently on nasal cannula with good saturations. He is unable to provide a meaningful history concerning symptoms or review of systems because of his Down syndrome and underlying dementia. - Patient Data Vitals - Most Recent: Last Vital Signs Temp 97.6 F 11/15/19 07:00 Pulse 103 H 11/15/19 07:00 Resp 11 L 11/15/19 07:00 BP 116/70 11/15/19 07:00 Pulse Ox 100 11/15/19 07:00 Weight - Most Recent: 160 lb I&O - Last 24 Hours: Intake & Output 11/14/19 11/15/19 11/15/19 22:59 06:59 14:59 Intake Total 955 1585 Output Total 90 Balance 865 1585 Lab Results Last 24 Hours: Laboratory Results - last 24 hr 11/14/19 11/15/19 11/15/19 Range/Units 14:52 04:42 04:42 WBC 10.2 (4.5-11.0) K/uL RBC 3.01 L (4.30-5.90) M/uL Hgb 9.6 L (12.0-15.0) g/dL Hct 31.0 L (40.0-54.0) % MCV 103 H (80-98) fL MCH 32 H (27-31) pg MCHC 31 L (32-36) % Plt Count 137 L (150-400) K/uL Neut % (Auto) 88 H (36-66) % Lymph % (Auto) 8 L (24-44) % Mccormick % (Auto) 5 (2-6) % Eos % (Auto) 0 L (2-4) % Baso % (Auto) 0 (0-1) % Puncture Site Rt brachial ABG pH 7.424 (7.350-7.450) ABG pCO2 38.3 (35.0-42.0) mmHg ABG pO2 67.1 L (75.0-100.0) mmHg ABG HCO3 24.7 (22.0-26.0) mmol/L ABG Total CO2 22.8 L (23.0-27.0) mmol/L ABG O2 Saturation 94.1 L (95.0-98.0) % ABG O2 Content 13.3 L (15.0-23.0) %vol ABG Base Excess 0.8 mm/L ABG Hemoglobin 10.2 L (13.5-18.0) g/dL ABG Oxyhemoglobin 92.1 % ABG Carboxyhemoglobin 1.4 (0.0-1.6) % ABG Methemoglobin 0.7 % Alban Test Not performed O2 Delivery Device Nasal cannula Oxygen Flow Rate L Sodium 144 (140-148) mmol/L Potassium 3.8 (3.6-5.2) mmol/L Chloride 110 H (100-108) mmol/L Carbon Dioxide 29 (21-32) mmol/L Anion Gap 8.8 (5.0-14.0) mmol/L BUN 9 (7-18) mg/dL Creatinine 0.8 (0.8-1.3) mg/dL Est Cr Clr Drug Dosing 96.19 mL/min Estimated GFR (MDRD) > 60 (>60) Glucose 112 H (74-106) mg/dL Calcium 7.3 L (8.5-10.1) mg/dL Magnesium 2.0 (1.8-2.4) mg/dL Total Bilirubin 0.6 (0.2-1.0) mg/dL AST 36 (15-37) U/L ALT 99 H (12-78) U/L Alkaline Phosphatase 163 H (46-116) U/L Total Protein 4.9 L (6.4-8.2) g/dL Albumin 1.4 L (3.4-5.0) g/dL Globulin 3.5 (2.3-3.5) g/dL Albumin/Globulin Ratio 0.4 L (1.2-2.2) Alex Results Last 24 Hours: Microbiology 11/12/19 09:15 Gram Stain - Final Abdominal Fluid - Aspirate Wound Culture - Final NO GROWTH AFTER 3 DAYS Anaerobic Culture - Final NO GROWTH AFTER 3 DAYS 11/12/19 05:40 Urine Culture - Final Urine, Bladder NO GROWTH AFTER 2 DAYS 11/12/19 05:55 Aerobic Blood Culture - Final Blood - Venous - Lab Draw Escherichia Coli Anaerobic Blood Culture - Final Escherichia Coli 11/12/19 05:50 Aerobic Blood Culture - Final Blood - Venous Escherichia Coli Anaerobic Blood Culture - Final Escherichia Coli Med Orders - Current: Current Medications Hydrocodone Bitart/Acetaminophen (Navarre 325-5 Mg) 1 tab PO Q4H PRN PRN Reason: Pain (moderate 4-6) Last Admin: 11/14/19 02:15 Dose: 1 tab Benzocaine/Menthol (Cepacol Sore Throat) 1 lozenge MUCMEM Q4H PRN PRN Reason: Sore Throat Docusate Sodium (Colace) 100 mg PO BID PRN PRN Reason: Constipation Donepezil HCl (Aricept) 10 mg PO DAILY [facility] [place] Last Admin: 11/15/19 08:33 Dose: 10 mg Enoxaparin Sodium (Lovenox) 40 mg SUBCUT DAILY [facility] [place] Last Admin: 11/15/19 08:36 Dose: 40 mg Hydrocortisone (Hydrocortisone 1% Crm) 0 gm TOP BID PRN PRN Reason: Rash Hydroxyzine HCl (Vistaril) 100 mg IM Q4H PRN PRN Reason: Breakthrough Pain Levofloxacin/Dextrose 750 mg/ (Premix) 150 mls @ 100 mls/hr IV Q24H [facility] [place] Last Admin: 11/14/19 16:59 Dose: 100 mls/hr Piperacillin/Tazobactam/ (Dextrose 3.375 gm/ Premix) 50 mls @ 100 mls/hr IV Q6H [facility] [place] Last Admin: 11/15/19 07:27 Dose: 100 mls/hr Lactobacillus Rhamnosus (Culturelle) 1 cap PO BID [facility] [place] Last Admin: 11/15/19 08:35 Dose: 1 cap Levetiracetam (Keppra) 750 mg PO BID [facility] [place] Last Admin: 11/15/19 08:35 Dose: 750 mg Magnesium Oxide (Magnesium Oxide) 400 mg PO BID [facility] [place] Last Admin: 11/15/19 08:36 Dose: 400 mg Ondansetron HCl (Zofran Odt) 4 mg PO Q4H PRN PRN Reason: Nausea/Vomiting Ondansetron HCl (Zofran) 4 mg IVPUSH Q4H PRN PRN Reason: Nausea/Vomiting Oxcarbazepine (Trileptal) 150 mg PO BID [facility] [place] Last Admin: 11/15/19 08:37 Dose: 150 mg Pantoprazole Sodium (Protonix Granules) 40 mg PO DAILY@0730 [facility] [place] Last Admin: 11/15/19 08:39 Dose: 40 mg Potassium Chloride (Potassium Chloride) 10 meq PO DAILY [facility] [place] Last Admin: 11/15/19 08:36 Dose: 10 meq Quetiapine Fumarate (Seroquel) 50 mg PO TID [facility] [place] Last Admin: 11/15/19 08:37 Dose: 50 mg Sertraline HCl (Zoloft) 50 mg PO DAILY [facility] [place] Last Admin: 11/15/19 08:39 Dose: 50 mg Zolpidem Tartrate (Ambien) 5 mg PO BEDTIME PRN PRN Reason: Sleep Discontinued Medications Acetaminophen (Tylenol) 650 mg RECTAL NOW ONE Stop: 11/12/19 05:59 Last Admin: 11/12/19 06:03 Dose: 650 mg Bupivacaine HCl (Marcaine 0.5%) Confirm Administered Dose 50 ml .ROUTE .STK-MED ONE Stop: 11/12/19 08:35 Last Admin: 11/12/19 09:29 Dose: 20 ml Ropivacaine 36 ml/Dexamethasone 8 mg/Epinephrine HCl 0.4 mg/ Sodium Chloride 41.6 ml [facility] Admin: 11/12/19 09:35 Dose: 80 syringe Dexamethasone (Dexamethasone) Confirm Administered Dose 4 mg .ROUTE .STK-MED ONE Stop: 11/12/19 08:42 Enoxaparin Sodium (Lovenox) 40 mg SUBCUT DAILY [facility] [place] Last Admin: 11/14/19 08:54 Dose: 40 mg Fentanyl (Sublimaze) Confirm Administered Dose 250 mcg .ROUTE .STK-MED ONE Stop: 11/12/19 08:42 Glycopyrrolate (Robinul) Confirm Administered Dose 1 mg .ROUTE .STK-MED ONE Stop: 11/12/19 08:42 Sodium Chloride (Normal Saline) 1,000 mls @ 999 mls[facility] Last Admin: 11/12/19 05:40 Dose: 999 mls/hr Sodium Chloride (Normal Saline) 1,000 mls @ 999 [facility] Last Admin: 11/12/19 06:30 Dose: 999 mls/hr Piperacillin Sod/Tazobactam (Sod 4.5 gm/ Sodium Chloride) 100 mls @ 100 mls/hr IV ONETIME ONE Stop: 11/12/19 07:16 Last Admin: 11/12/19 06:35 Dose: 100 mls/hr Aztreonam 1 gm/ Sodium (Chloride) 50 mls @ 100 mls/hr IV ONETIME ONE Stop: 11/12/19 07:01 Last Admin: 11/12/19 06:53 Dose: 100 mls/hr Sodium Chloride (Normal Saline) Confirm Administered Dose 100 mls @ as directed .ROUTE .[facility] ONE Stop: 11/12/19 06:33 Last Admin: 11/12/19 06:40 Dose: Not Given Sodium Chloride (Normal Saline) Confirm Administered Dose 100 mls @ as directed .ROUTE .[facility] ONE Stop: 11/12/19 06:34 Last Admin: 11/12/19 06:40 Dose: Not Given Sodium Chloride (Normal Saline) 1,000 mls @ 500 mls/hr IV ASDIRECTED [facility] [place] Last Admin: 11/12/19 07:36 Dose: 500 mls/hr Lactated Ringer's (Ringers, Lactated) Confirm Administered Dose 1,000 mls @ as directed .ROUTE .[facility] ONE Stop: 11/12/19 09:01 Sodium Chloride (Normal Saline) Confirm Administered Dose 10 mls @ as directed .ROUTE .[facility] ONE Stop: 11/12/19 09:05 Lactated Ringer's (Ringers, Lactated) Confirm Administered Dose 1,000 mls @ as directed .ROUTE .[facility] ONE Stop: 11/12/19 09:08 Lactated Ringer's (Ringers, Lactated) Confirm Administered Dose 1,000 mls @ as directed .ROUTE .[facility] ONE Stop: 11/12/19 09:38 Piperacillin/Tazobactam/ (Dextrose 3.375 gm/ Premix) 50 mls @ 100 mls/hr IV Q6H [facility] [place] Last Admin: 11/14/19 07:56 Dose: 100 mls/hr Potassium Cl/Dextrose/Lact Ringer's (D5 Lr With 20 Meq Kcl) 1,000 mls @ 125 mls /hr IV ASDIRECTED [facility] [place] Last Admin: 11/12/19 21:54 Dose: 125 mls/hr Vancomycin HCl 1 gm/ Sodium (Chloride) 250 mls @ 166.667 mls/hr IV Q12H [facility] [place] Last Admin: 11/14/19 00:19 Dose: 166.667 mls/hr Norepinephrine Bitartrate 4 mg (/ Dextrose/Water) 250 mls @ 7.5 mls/hr IV TITRATE ELISHA; Protocol Last Titration: 11/14/19 02:00 Dose: 0 mcg/min, 0 mls/hr Potassium Cl/Dextrose/Lact Ringer's (D5 Lr With 20 Meq Kcl) 1,000 mls @ 75 mls/ hr IV ASDIRECTED [facility] [place] Last Admin: 11/13/19 18:42 Dose: 75 mls/hr Magnesium Sulfate 2 gm/ Premix 50 mls @ 25 mls/hr IV Q6H [facility] [place] Stop: 11/14/19 17:59 Last Admin: 11/14/19 16:02 Dose: 25 mls/hr Dextrose/Lactated Ringer's (Dextrose 5%-Lactated Ringers) 1,000 mls @ 150 mls/ hr IV ASDIRECTED [facility] [place] Last Admin: 11/15/19 07:23 Dose: 150 mls/hr Potassium Chloride 20 meq/Lidocaine HCl 2 ml/ Sodium Chloride 112 mls @ 56 mls/ hr IV Q2H [facility] [place] Stop: 11/14/19 17:59 Last Admin: 11/14/19 16:57 Dose: 56 mls/hr Ceftazidime 1 gm/ Sodium (Chloride) 50 mls @ 100 mls/hr IV Q8HR [facility] [place] Last Admin: 11/14/19 13:58 Dose: 100 mls/hr Lactated Ringer's (Ringers, Lactated) 1,000 mls @ 500 mls/hr IV ASDIRECTED [facility] [place] Stop: 11/14/19 15:59 Last Admin: 11/14/19 14:03 Dose: 500 mls/hr Lactated Ringer's (Ringers, Lactated) 1,000 ml IRR .STK-MED ONE Stop: 11/12/19 09:16 Last Admin: 11/12/19 09:15 Dose: 1,000 ml Lidocaine/Epinephrine (Xylocaine 1% With Epinephrine 1:100,000) Confirm Administered Dose 50 ml .ROUTE .STK-MED ONE Stop: 11/12/19 08:35 Last Admin: 11/12/19 09:29 Dose: 20 ml Neostigmine Methylsulfate (Neostigmine) Confirm Administered Dose 5 mg .ROUTE .STK-MED ONE Stop: 11/12/19 08:42 Ondansetron HCl (Zofran) Confirm Administered Dose 4 mg .ROUTE .STK-MED ONE Stop: 11/12/19 08:42 Pantoprazole Sodium (Protonix) 40 mg PO ACBREAKFAST ELISHA Last Admin: 11/13/19 08:20 Dose: 40 mg Phenylephrine HCl (Bobby-Synephrine) Confirm Administered Dose 10 mg .ROUTE .STK- MED ONE Stop: 11/12/19 09:05 Piperacillin Sod/Tazobactam Sod (Zosyn) Confirm Administered Dose 4.5 gm .ROUTE .STK-MED ONE Stop: 11/12/19 06:31 Last Admin: 11/12/19 06:39 Dose: Not Given Propofol (Diprivan 20 Ml) Confirm Administered Dose 200 mg .ROUTE .STK-MED ONE Stop: 11/12/19 08:42 Rocuronium [place] (Zemuron) Confirm Administered Dose 50 mg .ROUTE .STK-MED ONE Stop: 11/12/19 08:42 Succinylcholine Chloride (Quelicin) Confirm Administered Dose 200 mg .ROUTE .STK -MED ONE Stop: 11/12/19 08:42 - Exam Quality Assessment: Supplemental Oxygen, DVT Prophylaxis General: Alert, Oriented, Cooperative, Mild Distress Lungs: Clear to Auscultation, Normal Respiratory Effort Cardiovascular: Regular Rate, Regular Rhythm, No Murmurs GI/Abdominal Exam: Soft, No Organomegaly, Tender. No: Distended, Guarding, Rigid, Rebound Extremities: Non-Tender, No Pedal Edema Sepsis Event Note - Evaluation Sepsis Screening Result: No Definite Risk - Focused Exam Vital Signs: Vital Signs Temp Pulse Resp BP Pulse Ox 11/15/19 07:00 97.6 F 103 H 11 L 116/70 100 11/15/19 06:00 17 117/74 99 11/15/19 05:00 15 114/69 98 11/15/19 04:00 97.5 F 21 H 118/72 98 11/15/19 03:00 15 122/65 98 11/15/19 02:00 14 119/74 99 11/15/19 01:00 13 117/75 100 11/15/19 00:00 15 108/72 100 11/14/19 23:00 96.9 F 17 112/79 100 11/14/19 22:00 14 107/62 97 Date Exam was Performed: 11/15/19 Time Exam was Performed: 09:12 - Problem List Review Problem List Initiated/Reviewed/Updated: Yes - My Orders Last 24 Hours: My Active Orders 11/14/19 09:30 Magnesium Oxide 400 mg PO BID 11/14/19 13:00 Lactobacillus Rhamnosus GG [Culturelle] 1 cap PO BID 11/14/19 14:52 BIPAP Adult [RT BiPAP/CPAP] [RC] ASDIRECTED 11/14/19 17:00 Levofloxacin/Dextrose 5%-Water [Levaquin in D5W 750 MG/150 ML] 750 mg Premix Bag 1 bag IV Q24H 11/14/19 20:00 Piperacillin/Tazobactam/Dext [Zosyn in Dextrose Iso-Osmotic 3.375 GM] 3.375 gm Premix Bag 1 bag IV Q6H 11/15/19 09:00 Enoxaparin [Lovenox] 40 mg SUBCUT DAILY 11/15/19 09:15 Dextrose 5%-Lactated Ringers @ 75 MLS/HR(1000ml) Dextrose 5%-Lactated Ringers 1 ,000 ml IV ASDIRECTED 11/16/19 05:00 CBC WITH AUTO DIFF [HEME] Timed COMPREHENSIVE METABOLIC PN,CMP [CHEM] Timed - Plan Plan:: ASSESSMENT AND PLAN Acute cholecystitis with septic shock-improved during the night, more alert and interactive this morning. Respiratory status has stabilized after episode of hypoxia yesterday -Continue levofloxacin and Zosyn, with possible underlying aspiration -Continue IV fluids until oral intake improves Aspiration pneumonia-episode of hypoxia yesterday, chest x-ray shows evidence of bilateral infiltrates versus atelectasis. He was placed on noninvasive positive pressure ventilation yesterday because of hypoxia, currently now on nasal cannula with good oxygenation -Biotic therapy as above Hypokalemia-resolved -Continue to monitor Down syndrome-significant disability at this time. Difficulty with communication. -Continue home medications Maintenance issues - - DVT prophylaxis -mechanical today, enoxaparin started tomorrow - Nutrition -advance per surgical instructions - Cesar catheter -placed in the emergency room for strict intake and output monitoring in a critically ill patient Admission justification -this patient will be admitted for inpatient services and is medically appropriate meeting medical necessity for inpatient admission as outlined in my documentation. I reasonably expect the patient will require inpatient services that span a period time over 2 midnights. I reasonably expect this patient to be discharged or transferred within 96 hours [facility].
--- NOTE | 2019-11-15 10:56 | PN ---
DATE OF SERVICE: 11/15/2019 SUBJECTIVE: The patient continues to improve. He is off BiPAP. He is now alert. No nausea, vomiting, shortness of breath, or chest pain. Tolerating diet. OBJECTIVE: VITAL SIGNS: Stable. He is saturating on a few liters at about 90%. CARDIOVASCULAR: Regular rhythm and rate. RESPIRATORY: Lungs are clear to auscultation bilaterally. ABDOMEN: Incision healing well. ASSESSMENT: Status post necrotic gallbladder with septic shock. PLAN: We will continue to manage with the hospitalist service. Continue to work on diet and activity. The patient will remain in intensive care unit today. Chadwick Ledesma MD /[id number]
[2019-11-15] MEDS: Levofloxacin/Dextrose 5%-Water 750 MG in Premix Bag 1 BAG IV SCH (16:15)
[2019-11-16] MEDS: Piperacillin/Tazobactam/Dext 3.375 GM in Premix Bag 1 BAG IV SCH ×4 (01:58→21:13)
[2019-11-16] MEDS: Dextrose 5%-Lactated Ringers 1,000 ML IV SCH ×2 (06:38→22:55)
[2019-11-16] MEDS: OXcarbazepine 300 MG Tab PO SCH ×2 (08:42→21:25)
[2019-11-16] MEDS: Pantoprazole 40 MG Delayed-Release Granules 1 Packet PO SCH (08:42)
[2019-11-16] MEDS: Donepezil 10 MG Tab PO SCH (08:43)
[2019-11-16] MEDS: Potassium Chloride 10 MEQ Cap.ER PO SCH (08:43)
[2019-11-16] MEDS: QUEtiapine 25 MG Tab PO SCH ×3 (08:43→21:25)
[2019-11-16] MEDS: levETIRAcetam 250 MG Tab PO SCH ×2 (08:43→21:25)
[2019-11-16] MEDS: Magnesium Oxide 400 MG Tab PO SCH ×2 (08:43→21:25)
[2019-11-16] MEDS: Lactobacillus Rhamnosus GG (Probiotic) Cap PO SCH ×2 (08:43→21:25)
[2019-11-16] MEDS: Enoxaparin 40 MG/0.4 ML Syringe SUBCUT SCH (08:44)
[2019-11-16] MEDS: Sertraline 50 MG Tab PO SCH (08:45)
--- NOTE | 2019-11-16 09:43 | PCM.PN ---
- General Info Date of Service: 11/16/19 Subjective Update: Mr. Campo has remained stable since yesterday. Vital signs have been good and he has remained afebrile. Respiratory status also stable with adequate oxygenation, no further episodes of hypoxia. He is otherwise unable to provide a meaningful history concerning recent symptoms or review of systems because of his Down syndrome and underlying dementia. - Patient Data Vitals - Most Recent: Last Vital Signs Temp 98 F 11/16/19 07:56 Pulse 113 H 11/16/19 07:56 Resp 26 H 11/16/19 07:56 BP 127/78 11/16/19 07:56 Pulse Ox 94 L 11/16/19 07:56 Weight - Most Recent: 160 lb I&O - Last 24 Hours: Intake & Output 11/15/19 11/16/19 11/16/19 22:59 06:59 14:59 Intake Total 1811 875 50 Output Total 300 350 Balance 1511 525 50 Lab Results Last 24 Hours: Laboratory Results - last 24 hr 11/16/19 11/16/19 Range/Units 05:05 05:05 WBC 7.7 (4.5-11.0) K/uL RBC 3.07 L (4.30-5.90) M/uL Hgb 9.5 L (12.0-15.0) g/dL Hct 31.1 L (40.0-54.0) % MCV 101 H (80-98) fL MCH 31 (27-31) pg MCHC 31 L (32-36) % Plt Count 136 L (150-400) K/uL Neut % (Auto) 79 H (36-66) % Lymph % (Auto) 10 L (24-44) % Angelina % (Auto) 10 H (2-6) % Eos % (Auto) 0 L (2-4) % Baso % (Auto) 0 (0-1) % Sodium 142 (140-148) mmol/L Potassium 3.4 L (3.6-5.2) mmol/L Chloride 108 (100-108) mmol/L Carbon Dioxide 28 (21-32) mmol/L Anion Gap 9.4 (5.0-14.0) mmol/L BUN 5 L (7-18) mg/dL Creatinine 0.7 L (0.8-1.3) mg/dL Est Cr Clr Drug Dosing 109.93 mL/min Estimated GFR (MDRD) > 60 (>60) Glucose 101 (74-106) mg/dL Calcium 7.0 L (8.5-10.1) mg/dL Total Bilirubin 0.5 (0.2-1.0) mg/dL AST 20 (15-37) U/L ALT 70 (12-78) U/L Alkaline Phosphatase 164 H (46-116) U/L Total Protein 4.7 L (6.4-8.2) g/dL Albumin 1.3 L (3.4-5.0) g/dL Globulin 3.4 (2.3-3.5) g/dL Albumin/Globulin Ratio 0.4 L (1.2-2.2) Alex Results Last 24 Hours: Microbiology 11/12/19 09:15 Gram Stain - Final Abdominal Fluid - Aspirate Wound Culture - Final NO GROWTH AFTER 3 DAYS Anaerobic Culture - Final NO GROWTH AFTER 3 DAYS Med Orders - Current: Current Medications Hydrocodone Bitart/Acetaminophen (Crane 325-5 Mg) 1 tab PO Q4H PRN PRN Reason: Pain (moderate 4-6) Last Admin: 11/14/19 02:15 Dose: 1 tab Benzocaine/Menthol (Cepacol Sore Throat) 1 lozenge MUCMEM Q4H PRN PRN Reason: Sore Throat Docusate Sodium (Colace) 100 mg PO BID PRN PRN Reason: Constipation Donepezil HCl (Aricept) 10 mg PO DAILY [facility] Last Admin: 11/16/19 08:43 Dose: 10 mg Enoxaparin Sodium (Lovenox) 40 mg SUBCUT DAILY [facility] Last Admin: 11/16/19 08:44 Dose: 40 mg Hydrocortisone (Hydrocortisone 1% Crm) 0 gm TOP BID PRN PRN Reason: Rash Hydroxyzine HCl (Vistaril) 100 mg IM Q4H PRN PRN Reason: Breakthrough Pain Levofloxacin/Dextrose 750 mg/ (Premix) 150 mls @ 100 mls/hr IV Q24H [facility] Last Admin: 11/15/19 16:15 Dose: 100 mls/hr Piperacillin/Tazobactam/ (Dextrose 3.375 gm/ Premix) 50 mls @ 100 mls/hr IV Q6H [facility] Last Admin: 11/16/19 07:47 Dose: 100 mls/hr Dextrose/Lactated Ringer's (Dextrose 5%-Lactated Ringers) 1,000 mls @ 75 mls/ hr IV ASDIRECTED [facility] Last Admin: 11/16/19 06:38 Dose: 75 mls/hr Potassium Chloride 20 meq/Lidocaine HCl 2 ml/ Sodium Chloride 112 mls @ 56 mls/ hr IV Q2H [facility] Stop: 11/16/19 13:59 Lactobacillus Rhamnosus (Culturelle) 1 cap PO BID [facility] Last Admin: 11/16/19 08:43 Dose: 1 cap Levetiracetam (Keppra) 750 mg PO BID [facility] Last Admin: 11/16/19 08:43 Dose: 750 mg Magnesium Oxide (Magnesium Oxide) 400 mg PO BID [facility] Last Admin: 11/16/19 08:43 Dose: 400 mg Ondansetron HCl (Zofran Odt) 4 mg PO Q4H PRN PRN Reason: Nausea/Vomiting Ondansetron HCl (Zofran) 4 mg IVPUSH Q4H PRN PRN Reason: Nausea/Vomiting Oxcarbazepine (Trileptal) 150 mg PO BID [facility] Last Admin: 11/16/19 08:42 Dose: 150 mg Pantoprazole Sodium (Protonix Granules) 40 mg PO DAILY@0730 [facility] Last Admin: 11/16/19 08:42 Dose: 40 mg Potassium Chloride (Potassium Chloride) 10 meq PO DAILY [facility] Last Admin: 11/16/19 08:43 Dose: 10 meq Quetiapine Fumarate (Seroquel) 50 mg PO TID [facility] Last Admin: 11/16/19 08:43 Dose: 50 mg Sertraline HCl (Zoloft) 50 mg PO DAILY [facility] Last Admin: 11/16/19 08:45 Dose: 50 mg Zolpidem Tartrate (Ambien) 5 mg PO BEDTIME PRN PRN Reason: Sleep Discontinued Medications Acetaminophen (Tylenol) 650 mg RECTAL NOW ONE Stop: 11/12/19 05:59 Last Admin: 11/12/19 06:03 Dose: 650 mg Bupivacaine HCl (Marcaine 0.5%) Confirm Administered Dose 50 ml .ROUTE .STK-MED ONE Stop: 11/12/19 08:35 Last Admin: 11/12/19 09:29 Dose: 20 ml Ropivacaine 36 ml/Dexamethasone 8 mg/Epinephrine HCl 0.4 mg/ Sodium Chloride 41.6 ml [facility] Last Admin: 11/12/19 09:35 Dose: 80 syringe Dexamethasone (Dexamethasone) Confirm Administered Dose 4 mg .ROUTE .[facility] ONE Stop: 11/12/19 08:42 Enoxaparin Sodium (Lovenox) 40 mg SUBCUT DAILY [facility] Last Admin: 11/14/19 08:54 Dose: 40 mg Fentanyl (Sublimaze) Confirm Administered Dose 250 mcg .ROUTE .[facility] ONE Stop: 11/12/19 08:42 Glycopyrrolate (Robinul) Confirm Administered Dose 1 mg .ROUTE .[facility] ONE Stop: 11/12/19 08:42 Sodium Chloride (Normal Saline) 1,000 mls @ 999 mls/hr IV [facility] Last Admin: 11/12/19 05:40 Dose: 999 mls/hr Sodium Chloride (Normal Saline) 1,000 mls @ 999 mls/hr IV [facility] Last Admin: 11/12/19 06:30 Dose: 999 mls/hr Piperacillin Sod/Tazobactam (Sod 4.5 gm/ Sodium Chloride) 100 mls @ 100 mls/hr IV ONETIME ONE Stop: 11/12/19 07:16 Last Admin: 11/12/19 06:35 Dose: 100 mls/hr Aztreonam 1 gm/ Sodium (Chloride) 50 mls @ 100 mls/hr IV ONETIME ONE Stop: 11/12/19 07:01 Last Admin: 11/12/19 06:53 Dose: 100 mls/hr Sodium Chloride (Normal Saline) Confirm Administered Dose 100 mls @ as directed .ROUTE .[facility] ONE Stop: 11/12/19 06:33 Last Admin: 11/12/19 06:40 Dose: Not Given Sodium Chloride (Normal Saline) Confirm Administered Dose 100 mls @ as directed .ROUTE .[facility] ONE Stop: 11/12/19 06:34 Last Admin: 11/12/19 06:40 Dose: Not Given Sodium Chloride (Normal Saline) 1,000 mls @ 500 mls/hr IV [facility] Last Admin: 11/12/19 07:36 Dose: 500 mls/hr Lactated Ringer's (Ringers, Lactated) Confirm Administered Dose 1,000 mls @ as directed .ROUTE .STK-MED ONE Stop: 11/12/19 09:01 Sodium Chloride (Normal Saline) Confirm Administered Dose 10 mls @ as directed .ROUTE .STK-MED ONE Stop: 11/12/19 09:05 Lactated Ringer's (Ringers, Lactated) Confirm Administered Dose 1,000 mls @ as directed .ROUTE .STK-MED ONE Stop: 11/12/19 09:08 Lactated Ringer's (Ringers, Lactated) Confirm Administered Dose 1,000 mls @ as directed .ROUTE .STK-MED ONE Stop: 11/12/19 09:38 Piperacillin/Tazobactam/ (Dextrose 3.375 gm/ Premix) 50 mls @ 100 mls/hr IV Q6H [facility] Last Admin: 11/14/19 07:56 Dose: 100 mls/hr Potassium Cl/Dextrose/Lact Ringer's (D5 Lr With 20 Meq Kcl) 1,000 mls @ 125 mls /hr IV ASDIRECTED [facility] Last Admin: 11/12/19 21:54 Dose: 125 mls/hr Vancomycin HCl 1 gm/ Sodium (Chloride) 250 mls @ 166.667 mls/hr IV Q12H [facility] Last Admin: 11/14/19 00:19 Dose: 166.667 mls/hr Norepinephrine Bitartrate 4 mg (/ Dextrose/Water) 250 mls @ 7.5 mls/hr IV TITRATE [facility]; Protocol Last Titration: 11/14/19 02:00 Dose: 0 mcg/min, 0 mls/hr Potassium Cl/Dextrose/Lact Ringer's (D5 Lr With 20 Meq Kcl) 1,000 mls @ 75 mls/ hr IV ASDIRECTED [facility] Last Admin: 11/13/19 18:42 Dose: 75 mls/hr Magnesium Sulfate 2 gm/ Premix 50 mls @ 25 mls/hr IV Q6H [facility] Stop: 11/14/19 17:59 Last Admin: 11/14/19 16:02 Dose: 25 mls/hr Dextrose/Lactated Ringer's (Dextrose 5%-Lactated Ringers) 1,000 mls @ 150 mls/ hr IV ASDIRECTED [facility] Last Admin: 11/15/19 07:23 Dose: 150 mls/hr Potassium Chloride 20 meq/Lidocaine HCl 2 ml/ Sodium Chloride 112 mls @ 56 mls/ hr IV Q2H [facility] Stop: 11/14/19 17:59 Last Admin: 11/14/19 16:57 Dose: 56 mls/hr Ceftazidime 1 gm/ Sodium (Chloride) 50 mls @ 100 mls/hr IV Q8HR [facility] Last Admin: 11/14/19 13:58 Dose: 100 mls/hr Lactated Ringer's (Ringers, Lactated) 1,000 mls @ 500 mls/hr IV ASDIRECTED [facility] Stop: 11/14/19 15:59 Last Admin: 11/14/19 14:03 Dose: 500 mls/hr Lactated Ringer's (Ringers, Lactated) 1,000 ml IRR .STK-MED ONE Stop: 11/12/19 09:16 Last Admin: 11/12/19 09:15 Dose: 1,000 ml Lidocaine/Epinephrine (Xylocaine 1% With Epinephrine 1:100,000) Confirm Administered Dose 50 ml .ROUTE .STK-MED ONE Stop: 11/12/19 08:35 Last Admin: 11/12/19 09:29 Dose: 20 ml Neostigmine Methylsulfate (Neostigmine) Confirm Administered Dose 5 mg .ROUTE .STK-MED ONE Stop: 11/12/19 08:42 Ondansetron HCl (Zofran) Confirm Administered Dose 4 mg .ROUTE .STK-MED ONE Stop: 11/12/19 08:42 Pantoprazole Sodium (Protonix) 40 mg PO ACBREAKFAST [facility] Last Admin: 11/13/19 08:20 Dose: 40 mg Phenylephrine HCl (Bobby-Synephrine) Confirm Administered Dose 10 mg .ROUTE .STK- MED ONE Stop: 11/12/19 09:05 Piperacillin Sod/Tazobactam Sod (Zosyn) Confirm Administered Dose 4.5 gm .ROUTE .STK-MED ONE Stop: 11/12/19 06:31 Last Admin: 11/12/19 06:39 Dose: Not Given Propofol (Diprivan 20 Ml) Confirm Administered Dose 200 mg .ROUTE .STK-MED ONE Stop: 11/12/19 08:42 Rocuronium Schuyler (Zemuron) Confirm Administered Dose 50 mg .ROUTE .STK-MED ONE Stop: 11/12/19 08:42 Succinylcholine Chloride (Quelicin) Confirm Administered Dose 200 mg .ROUTE .STK -MED ONE Stop: 11/12/19 08:42 - Exam Quality Assessment: DVT Prophylaxis General: Alert, Cooperative, Mild Distress. No: Oriented Lungs: Clear to Auscultation, Normal Respiratory Effort Cardiovascular: Regular Rhythm, No Murmurs, Tachycardia GI/Abdominal Exam: Soft, Non-Tender, No Organomegaly, No Distention Extremities: Non-Tender, No Pedal Edema Sepsis Event Note - Evaluation Sepsis Screening Result: Sepsis Risk - Focused Exam Vital Signs: Vital Signs Temp Pulse Resp BP Pulse Ox 11/16/19 07:56 98 F 113 H 26 H 127/78 94 L 11/16/19 07:00 114 H 20 128/79 96 11/16/19 06:00 111 H 27 H 119/77 95 11/16/19 05:00 113 H 22 H 123/81 97 11/16/19 04:00 113 H 25 H 120/72 94 L 11/16/19 03:00 112 H 26 H 125/67 93 L 11/16/19 02:00 111 H 25 H 125/69 97 11/16/19 01:00 113 H 26 H 118/71 95 11/16/19 00:00 97.9 F 110 H 24 H 118/71 95 11/15/19 23:00 106 H 20 116/67 93 L 11/15/19 22:00 110 H 24 H 112/65 92 L Date Exam was Performed: 11/16/19 Time Exam was Performed: 09:41 - Problem List Review Problem List Initiated/Reviewed/Updated: Yes - My Orders Last 24 Hours: My Active Orders 11/15/19 09:00 Enoxaparin [Lovenox] 40 mg SUBCUT DAILY 11/15/19 09:15 Dextrose 5%-Lactated Ringers 1,000 ml IV ASDIRECTED 11/16/19 08:35 Dietary Supplements [RC] WITHMEALSANDBED 11/16/19 10:00 Potassium Chloride 20 meq Lidocaine 1% [Xylocaine 1%] 2 ml Sodium Chloride 0.9 % [Normal Saline] 100 ml IV Q2H 11/16/19 Lunch GI Soft Low Fiber [Soft Diet] [DIET] 11/17/19 05:00 BASIC METABOLIC PANEL,BMP [CHEM] Timed - Plan Plan:: ASSESSMENT AND PLAN Acute cholecystitis with septic shock-improvement over the past few days, oral intake remains marginal -Continue levofloxacin and Zosyn, with possible underlying aspiration -Continue IV fluids until oral intake improves -Nutritional supplement 4 times daily Aspiration pneumonia-episode of hypoxia, chest x-ray shows evidence of bilateral infiltrates versus atelectasis. He was placed on noninvasive positive pressure ventilation yesterday because of hypoxia, currently now on nasal cannula with good oxygenation -Antibiotic therapy as above Hypokalemia -Continue to monitor Down syndrome-significant disability at this time. Difficulty with communication. -Continue home medications Maintenance issues - - DVT prophylaxis -mechanical today, enoxaparin started tomorrow - Nutrition -advance per surgical instructions - Cesar catheter -placed in the emergency room for strict intake and output monitoring in a critically ill patient Admission justification -this patient will be admitted for inpatient services and is medically appropriate meeting medical necessity for inpatient admission as outlined in my documentation. I reasonably expect the patient will require inpatient services that span a period time over 2 midnights. I reasonably expect this patient to be discharged or transferred within 96 hours [facility].
[2019-11-16] MEDS: Potassium Chloride 20 MEQ, Lidocaine 1% 2 ML in Sodium Chloride 0.9% 100 ML IV SCH ×2 (10:12→12:01)
--- NOTE | 2019-11-16 12:32 | PN ---
DATE OF SERVICE: 11/16/2019 SUBJECTIVE: The patient is doing even better today. No nausea, vomiting, shortness of breath, or chest pain. OBJECTIVE: VITAL SIGNS: Stable. CARDIOVASCULAR: Regular rhythm and rate. RESPIRATORY: Poor inspiratory effort bilaterally. SKIN: Incisions healing very well. ASSESSMENT: Status post laparoscopic cholecystectomy/sepsis. PLAN: The patient will probably be transferred out of the ICU today to the floor. Continue IV antibiotics. Medicine plan per hospitalist service. Chadwick Ledesma MD /[id number]
[2019-11-16] MEDS: Levofloxacin/Dextrose 5%-Water 750 MG in Premix Bag 1 BAG IV SCH (17:05)
[2019-11-17] MEDS: Piperacillin/Tazobactam/Dext 3.375 GM in Premix Bag 1 BAG IV SCH ×4 (01:56→19:46)
[2019-11-17] MEDS: Magnesium Oxide 400 MG Tab PO SCH ×2 (08:25→21:16)
[2019-11-17] MEDS: QUEtiapine 25 MG Tab PO SCH ×3 (08:25→21:16)
[2019-11-17] MEDS: Potassium Chloride 10 MEQ Cap.ER PO SCH (08:25)
[2019-11-17] MEDS: Sertraline 50 MG Tab PO SCH (08:25)
[2019-11-17] MEDS: Donepezil 10 MG Tab PO SCH (08:25)
[2019-11-17] MEDS: Pantoprazole 40 MG Delayed-Release Granules 1 Packet PO SCH (08:25)
[2019-11-17] MEDS: Lactobacillus Rhamnosus GG (Probiotic) Cap PO SCH ×2 (08:25→21:16)
[2019-11-17] MEDS: levETIRAcetam 250 MG Tab PO SCH ×2 (08:25→21:15)
[2019-11-17] MEDS: OXcarbazepine 300 MG Tab PO SCH ×2 (08:25→21:17)
[2019-11-17] MEDS: Enoxaparin 40 MG/0.4 ML Syringe SUBCUT SCH (08:26)
--- NOTE | 2019-11-17 12:05 | PCM.PN ---
- General Info Date of Service: 11/17/19 Subjective Update: Mr. Campo has remained stable since yesterday vital signs have been fairly good, he continues to experience a mild tachycardia. He has remained afebrile and his respiratory status also has remained stable. He is unable to provide a meaningful history concerning symptoms or review of systems because of his underlying Down syndrome and dementia. - Patient Data Vitals - Most Recent: Last Vital Signs Temp 96.7 F L 11/17/19 08:00 Pulse 103 H 11/17/19 06:00 Resp 16 11/17/19 10:00 BP 125/71 11/17/19 10:00 Pulse Ox 97 11/17/19 10:00 Weight - Most Recent: 160 lb I&O - Last 24 Hours: Intake & Output 11/16/19 11/17/19 11/17/19 22:59 06:59 14:59 Intake Total 1016 848 140 Output Total 635 470 Balance 381 378 140 Lab Results Last 24 Hours: Laboratory Results - last 24 hr 11/17/19 Range/Units 04:00 Sodium 141 (140-148) mmol/L Potassium 3.7 (3.6-5.2) mmol/L Chloride 106 (100-108) mmol/L Carbon Dioxide 31 (21-32) mmol/L Anion Gap 4.2 L (5.0-14.0) mmol/L BUN 3 L (7-18) mg/dL Creatinine 0.7 L (0.8-1.3) mg/dL Est Cr Clr Drug Dosing 109.93 mL/min Estimated GFR (MDRD) > 60 (>60) Glucose 108 H (74-106) mg/dL Calcium 7.0 L (8.5-10.1) mg/dL Med Orders - Current: Current Medications Hydrocodone Bitart/Acetaminophen ([place] 325-5 Mg) 1 tab PO Q4H PRN PRN Reason: Pain (moderate 4-6) Last Admin: 11/14/19 02:15 Dose: 1 tab Benzocaine/Menthol (Cepacol Sore Throat) 1 lozenge MUCMEM Q4H PRN PRN Reason: Sore Throat Docusate Sodium (Colace) 100 mg PO BID PRN PRN Reason: Constipation Donepezil HCl (Aricept) 10 mg PO DAILY [facility] Last Admin: 11/17/19 08:25 Dose: 10 mg Enoxaparin Sodium (Lovenox) 40 mg SUBCUT DAILY [facility] Last Admin: 11/17/19 08:26 Dose: 40 mg Hydrocortisone (Hydrocortisone 1% Crm) 0 gm TOP BID PRN PRN Reason: Rash Hydroxyzine HCl (Vistaril) 100 mg IM Q4H PRN PRN Reason: Breakthrough Pain Levofloxacin/Dextrose 750 mg/ (Premix) 150 mls @ 100 mls/hr IV Q24H [facility] Last Admin: 11/16/19 17:05 Dose: 100 mls/hr Piperacillin/Tazobactam/ (Dextrose 3.375 gm/ Premix) 50 mls @ 100 mls/hr IV Q6H [facility] Last Admin: 11/17/19 08:19 Dose: 100 mls/hr Lactobacillus Rhamnosus (Culturelle) 1 cap PO BID [facility] Last Admin: 11/17/19 08:25 Dose: 1 cap Levetiracetam (Keppra) 750 mg PO BID [facility] Last Admin: 11/17/19 08:25 Dose: 750 mg Magnesium Oxide (Magnesium Oxide) 400 mg PO BID [facility] Last Admin: 11/17/19 08:25 Dose: 400 mg Ondansetron HCl (Zofran Odt) 4 mg PO Q4H PRN PRN Reason: Nausea/Vomiting Ondansetron HCl (Zofran) 4 mg IVPUSH Q4H PRN PRN Reason: Nausea/Vomiting Oxcarbazepine (Trileptal) 150 mg PO BID [facility] Last Admin: 11/17/19 08:25 Dose: 150 mg Pantoprazole Sodium (Protonix Granules) 40 mg PO DAILY@0730 [facility] Last Admin: 11/17/19 08:25 Dose: 40 mg Potassium Chloride (Potassium Chloride) 10 meq PO DAILY [facility] Last Admin: 11/17/19 08:25 Dose: 10 meq Quetiapine Fumarate (Seroquel) 50 mg PO TID [facility] Last Admin: 11/17/19 08:25 Dose: 50 mg Sertraline HCl (Zoloft) 50 mg PO DAILY [facility] Last Admin: 11/17/19 08:25 Dose: 50 mg Zolpidem Tartrate (Ambien) 5 mg PO BEDTIME PRN PRN Reason: Sleep Discontinued Medications Acetaminophen (Tylenol) 650 mg RECTAL NOW ONE Stop: 11/12/19 05:59 Last Admin: 11/12/19 06:03 Dose: 650 mg Bupivacaine HCl (Marcaine 0.5%) Confirm Administered Dose 50 ml .ROUTE .K-MED ONE Stop: 11/12/19 08:35 Last Admin: 11/12/19 09:29 Dose: 20 ml Ropivacaine 36 ml/Dexamethasone 8 mg/Epinephrine HCl 0.4 mg/ Sodium Chloride 41.6 ml [facility] Last Admin: 11/12/19 09:35 Dose: 80 syringe Dexamethasone (Dexamethasone) Confirm Administered Dose 4 mg .ROUTE .K-MED ONE Stop: 11/12/19 08:42 Enoxaparin Sodium (Lovenox) 40 mg SUBCUT DAILY [facility] Last Admin: 11/14/19 08:54 Dose: 40 mg Fentanyl (Sublimaze) Confirm Administered Dose 250 mcg .ROUTE .[facility] ONE Stop: 11/12/19 08:42 Glycopyrrolate (Robinul) Confirm Administered Dose 1 mg .ROUTE .[facility] ONE Stop: 11/12/19 08:42 Sodium Chloride (Normal Saline) 1,000 mls @ 999 [facility] Last Admin: 11/12/19 05:40 Dose: 999 mls/hr Sodium Chloride (Normal Saline) 1,000 mls @ 999 mls/hr IV [facility] Last Admin: 11/12/19 06:30 Dose: 999 mls/hr Piperacillin Sod/Tazobactam (Sod 4.5 gm/ Sodium Chloride) 100 mls @ 100 mls/hr IV ONETIME ONE Stop: 11/12/19 07:16 Last Admin: 11/12/19 06:35 Dose: 100 mls/hr Aztreonam 1 gm/ Sodium (Chloride) 50 mls @ 100 mls/hr IV ONETIME ONE Stop: 11/12/19 07:01 Last Admin: 11/12/19 06:53 Dose: 100 mls/hr Sodium Chloride (Normal Saline) Confirm Administered Dose 100 mls @ as directed .ROUTE .STK-MED ONE Stop: 11/12/19 06:33 Last Admin: 11/12/19 06:40 Dose: Not Given Sodium Chloride (Normal Saline) Confirm Administered Dose 100 mls @ as directed .ROUTE .STK-MED ONE Stop: 11/12/19 06:34 Last Admin: 11/12/19 06:40 Dose: Not Given Sodium Chloride (Normal Saline) 1,000 mls @ 500 mls/hr IV ASDIRECTED [facility] Last Admin: 11/12/19 07:36 Dose: 500 mls/hr Lactated Ringer's (Ringers, Lactated) Confirm Administered Dose 1,000 mls @ as directed .ROUTE .[facility] ONE Stop: 11/12/19 09:01 Sodium Chloride (Normal Saline) Confirm Administered Dose 10 mls @ as directed .ROUTE .STK-MED ONE Stop: 11/12/19 09:05 Lactated Ringer's (Ringers, Lactated) Confirm Administered Dose 1,000 mls @ as directed .ROUTE .[facility] ONE Stop: 11/12/19 09:08 Lactated Ringer's (Ringers, Lactated) Confirm Administered Dose 1,000 mls @ as [facility] Stop: 11/12/19 09:38 Piperacillin/Tazobactam/ (Dextrose 3.375 gm/ Premix) 50 mls @ 100 mls/hr IV Q6H [facility] Last Admin: 11/14/19 07:56 Dose: 100 mls/hr Potassium Cl/Dextrose/Lact Ringer's (D5 Lr With 20 Meq Kcl) 1,000 mls @ 125 mls /hr IV ASDIRECTED [facility] Last Admin: 11/12/19 21:54 Dose: 125 mls/hr Vancomycin HCl 1 gm/ Sodium (Chloride) 250 mls @ 166.667 mls/hr IV Q12H [facility] Last Admin: 11/14/19 00:19 Dose: 166.667 mls/hr Norepinephrine Bitartrate 4 mg (/ Dextrose/Water) 250 mls @ 7.5 mls/hr IV TITRATE [facility]; Protocol Last Titration: 11/14/19 02:00 Dose: 0 mcg/min, 0 mls/hr Potassium Cl/Dextrose/Lact Ringer's (D5 Lr With 20 Meq Kcl) 1,000 mls @ 75 mls/ hr IV ASDIRECTED [facility] Last Admin: 11/13/19 18:42 Dose: 75 mls/hr Magnesium Sulfate 2 gm/ Premix 50 mls @ 25 mls/hr IV Q6H [facility] Stop: 11/14/19 17:59 Last Admin: 11/14/19 16:02 Dose: 25 mls/hr Dextrose/Lactated Ringer's (Dextrose 5%-Lactated Ringers) 1,000 mls @ 150 mls/ hr IV ASDIRECTED [facility] Last Admin: 11/15/19 07:23 Dose: 150 mls/hr Potassium Chloride 20 meq/Lidocaine HCl 2 ml/ Sodium Chloride 112 mls @ 56 mls/ hr IV Q2H [facility] Stop: 11/14/19 17:59 Last Admin: 11/14/19 16:57 Dose: 56 mls/hr Ceftazidime 1 gm/ Sodium (Chloride) 50 mls @ 100 mls/hr IV Q8HR [facility] Last Admin: 11/14/19 13:58 Dose: 100 mls/hr Lactated Ringer's (Ringers, Lactated) 1,000 mls @ 500 mls/hr IV ASDIRECTED [facility] Stop: 11/14/19 15:59 Last Admin: 11/14/19 14:03 Dose: 500 mls/hr Dextrose/Lactated Ringer's (Dextrose 5%-Lactated Ringers) 1,000 mls @ 75 mls/ hr IV ASDIRECTED [facility] Last Admin: 11/16/19 22:55 Dose: 75 mls/hr Potassium Chloride 20 meq/Lidocaine HCl 2 ml/ Sodium Chloride 112 mls @ 56 mls/ hr IV Q2H [facility] Stop: 11/16/19 13:59 Last Admin: 11/16/19 12:01 Dose: 56 mls/hr Lactated Ringer's (Ringers, Lactated) 1,000 ml IRR .STK-MED ONE Stop: 11/12/19 09:16 Last Admin: 11/12/19 09:15 Dose: 1,000 ml Lidocaine/Epinephrine (Xylocaine 1% With Epinephrine 1:100,000) Confirm Administered Dose 50 ml .ROUTE .STK-MED ONE Stop: 11/12/19 08:35 Last Admin: 11/12/19 09:29 Dose: 20 ml Neostigmine Methylsulfate (Neostigmine) Confirm Administered Dose 5 mg .ROUTE .STK-MED ONE Stop: 11/12/19 08:42 Ondansetron HCl (Zofran) Confirm Administered Dose 4 mg .ROUTE .STK-MED ONE Stop: 04/26/20 08:42 Pantoprazole Sodium (Protonix) 40 mg PO ACBREAKFAST [facility] Last Admin: 11/13/19 08:20 Dose: 40 mg Phenylephrine HCl (Bobby-Synephrine) Confirm Administered Dose 10 mg .ROUTE .STK- MED ONE Stop: 11/12/19 09:05 Piperacillin Sod/Tazobactam Sod (Zosyn) Confirm Administered Dose 4.5 gm .ROUTE .STK-MED ONE Stop: 11/12/19 06:31 Last Admin: 11/12/19 06:39 Dose: Not Given Propofol (Diprivan 20 Ml) Confirm Administered Dose 200 mg .ROUTE .STK-MED ONE Stop: 11/12/19 08:42 Rocuronium [place] (Zemuron) Confirm Administered Dose 50 mg .ROUTE .STK-MED ONE Stop: 11/12/19 08:42 Succinylcholine Chloride (Quelicin) Confirm Administered Dose 200 mg .ROUTE .STK -MED ONE Stop: 11/12/19 08:42 - Exam Quality Assessment: Supplemental Oxygen, Urine Catheter, DVT Prophylaxis General: Alert, Cooperative, Lethargic Lungs: Clear to Auscultation, Normal Respiratory Effort Cardiovascular: Regular Rate, Regular Rhythm, No Murmurs GI/Abdominal Exam: Soft, No Organomegaly, Tender. No: Distended, Guarding, Rigid, Rebound Extremities: Non-Tender, No Pedal Edema Sepsis Event Note - Evaluation Sepsis Screening Result: No Definite Risk - Focused Exam Vital Signs: Vital Signs Temp Pulse Resp BP Pulse Ox 11/17/19 10:00 16 125/71 97 11/17/19 08:00 96.7 F L 20 115/68 96 11/17/19 06:00 103 H 22 H 107/66 91 L 11/17/19 04:00 98.5 F 111 H 23 H 115/70 93 L 11/17/19 02:00 98.8 F 120 H 14 104/70 93 L Date Exam was Performed: 11/17/19 Time Exam was Performed: 12:00 - Problem List Review Problem List Initiated/Reviewed/Updated: Yes - My Orders Last 24 Hours: My Active Orders 11/16/19 Lunch GI Soft Low Fiber [Soft Diet] [DIET] 11/17/19 11:51 Remove Urinary Catheter [Urinary Catheter Removal] [RC] Per Unit Routine 11/17/19 11:59 Convert IV to Saline Lock [OM.] Routine - Plan Plan:: ASSESSMENT AND PLAN Acute cholecystitis with septic shock-improvement over the past few days, oral intake slowly improving -Continue levofloxacin and Zosyn, with possible underlying aspiration -Saline lock IV -Nutritional supplement 4 times daily Aspiration pneumonia-episode of hypoxia, chest x-ray shows evidence of bilateral infiltrates versus atelectasis. Respiratory status is stabilized over the past few days, continues to require low level of supplemental oxygen -Antibiotic therapy as above Hypokalemia -Continue to monitor Down syndrome-significant disability at this time. Difficulty with communication. -Continue home medications Maintenance issues - - DVT prophylaxis -mechanical today, enoxaparin started tomorrow - Nutrition -advance per surgical instructions - Cesar catheter -placed in the emergency room for strict intake and output monitoring in a critically ill patient Admission justification -this patient will be admitted for inpatient services and is medically appropriate meeting medical necessity for inpatient admission as outlined in my documentation. I reasonably expect the patient will require inpatient services that span a period time over 2 midnights. I reasonably expect this patient to be discharged or transferred within 96 hours [facility].
[2019-11-17] MEDS: Acetaminophen/HYDROcodone 325-5 MG Tab PO PRN ×2 (14:55→21:20)
[2019-11-17] MEDS: Levofloxacin/Dextrose 5%-Water 750 MG in Premix Bag 1 BAG IV SCH (16:48)
[2019-11-17] MEDS ORDERED: Sodium Chloride 0.9% 250 ML IV ONE (23:28)
[2019-11-17] MEDS: Albuterol/Ipratropium 3.0-0.5 MG/3 ML Neb Soln NEB PRN (23:47)
[2019-11-18] MEDS: Piperacillin/Tazobactam/Dext 3.375 GM in Premix Bag 1 BAG IV SCH ×2 (00:59→09:16)
[2019-11-18] MEDS ORDERED: Lidocaine 2% Jelly 10 ML Urojet MUCMEM ONE (05:52)
[2019-11-18] MEDS: Pantoprazole 40 MG Delayed-Release Granules 1 Packet PO SCH (08:09)
[2019-11-18] MEDS: Acetaminophen/HYDROcodone 325-5 MG Tab PO PRN ×2 (08:13→19:55)
[2019-11-18] MEDS: levETIRAcetam 250 MG Tab PO SCH ×3 (08:14→20:05)
[2019-11-18] MEDS: OXcarbazepine 300 MG Tab PO SCH ×3 (08:15→20:06)
[2019-11-18] MEDS: Sertraline 50 MG Tab PO SCH (08:15)
[2019-11-18] MEDS: Enoxaparin 40 MG/0.4 ML Syringe SUBCUT SCH (08:15)
[2019-11-18] MEDS: Donepezil 10 MG Tab PO SCH (08:15)
[2019-11-18] MEDS: QUEtiapine 25 MG Tab PO SCH ×4 (08:15→20:05)
[2019-11-18] MEDS: Magnesium Oxide 400 MG Tab PO SCH ×3 (08:16→20:05)
[2019-11-18] MEDS: Lactobacillus Rhamnosus GG (Probiotic) Cap PO SCH ×3 (08:16→20:05)
[2019-11-18] MEDS: Potassium Chloride 10 MEQ Cap.ER PO SCH (08:16)
--- NOTE | 2019-11-18 10:14 | PCM.PN ---
- General Info Date of Service: 11/18/19 Subjective Update: Mr. Campo has been stable since yesterday, vital signs have been good and he has remained afebrile. Respiratory status seems to be fairly good and his oral intake has improved. He is unable to provide a meaningful history concerning symptoms or review of systems because of his underlying Down syndrome and associated dementia. - Patient Data Vitals - Most Recent: Last Vital Signs Temp 98.4 F 11/18/19 07:00 Pulse 110 H 11/18/19 07:00 Resp 20 11/18/19 07:00 BP 93/81 11/18/19 08:16 Pulse Ox 91 L 11/18/19 07:00 Weight - Most Recent: 160 lb I&O - Last 24 Hours: Intake & Output 11/17/19 11/18/19 11/18/19 22:59 06:59 14:59 Intake Total 100 Output Total 300 300 Balance -200 -300 Med Orders - Current: Current Medications Hydrocodone Bitart/Acetaminophen ([place] 325-5 Mg) 1 tab PO Q4H PRN PRN Reason: Pain (moderate 4-6) Last Admin: 11/18/19 08:13 Dose: 1 tab Albuterol/Ipratropium (Duoneb 3.0-0.5 Mg/3 Ml) 3 ml NEB Q4H PRN PRN Reason: Dyspnea Last Admin: 11/17/19 23:47 Dose: 3 ml Benzocaine/Menthol (Cepacol Sore Throat) 1 lozenge MUCMEM Q4H PRN PRN Reason: Sore Throat Docusate Sodium (Colace) 100 mg PO BID PRN PRN Reason: Constipation Donepezil HCl (Aricept) 10 mg PO DAILY [facility] Last Admin: 11/18/19 08:15 Dose: 10 mg Enoxaparin Sodium (Lovenox) 40 mg SUBCUT DAILY [facility] Last Admin: 11/18/19 08:15 Dose: 40 mg Hydrocortisone (Hydrocortisone 1% Crm) 0 gm TOP BID PRN PRN Reason: Rash Hydroxyzine HCl (Vistaril) 100 mg IM Q4H PRN PRN Reason: Breakthrough Pain Levofloxacin/Dextrose 750 mg/ (Premix) 150 mls @ 100 mls/hr IV Q24H [facility] Last Admin: 11/17/19 16:48 Dose: 100 mls/hr Piperacillin/Tazobactam/ (Dextrose 3.375 gm/ Premix) 50 mls @ 100 mls/hr IV Q6H [facility] Last Admin: 11/18/19 09:16 Dose: 100 mls/hr Lactobacillus Rhamnosus (Culturelle) 1 cap PO BID [facility] Last Admin: 11/18/19 08:16 Dose: 1 cap Levetiracetam (Keppra) 750 mg PO BID [facility] Last Admin: 11/18/19 08:14 Dose: 750 mg Magnesium Oxide (Magnesium Oxide) 400 mg PO BID [facility] Last Admin: 11/18/19 08:16 Dose: 400 mg Ondansetron HCl (Zofran Odt) 4 mg PO Q4H PRN PRN Reason: Nausea/Vomiting Ondansetron HCl (Zofran) 4 mg IVPUSH Q4H PRN PRN Reason: Nausea/Vomiting Oxcarbazepine (Trileptal) 150 mg PO BID [facility] Last Admin: 11/18/19 08:15 Dose: 150 mg Pantoprazole Sodium (Protonix Granules) 40 mg PO DAILY@0730 [facility] Last Admin: 11/18/19 08:09 Dose: 40 mg Potassium Chloride (Potassium Chloride) 10 meq PO DAILY [facility] Last Admin: 11/18/19 08:16 Dose: 10 meq Quetiapine Fumarate (Seroquel) 50 mg PO TID [facility] Last Admin: 11/18/19 08:15 Dose: 50 mg Sertraline HCl (Zoloft) 50 mg PO DAILY [facility] Last Admin: 11/18/19 08:15 Dose: 50 mg Zolpidem Tartrate (Ambien) 5 mg PO BEDTIME PRN PRN Reason: Sleep Discontinued Medications Acetaminophen (Tylenol) 650 mg RECTAL NOW ONE Stop: 11/12/19 05:59 Last Admin: 11/12/19 06:03 Dose: 650 mg Bupivacaine HCl (Marcaine 0.5%) Confirm Administered Dose 50 ml .ROUTE .STK-MED ONE Stop: 11/12/19 08:35 Last Admin: 11/12/19 09:29 Dose: 20 ml Ropivacaine 36 ml/Dexamethasone 8 mg/Epinephrine HCl 0.4 mg/ Sodium Chloride 41.6 ml 0 ml NERVRT ASDIRECTED [facility] Last Admin: 11/12/19 09:35 Dose: 80 syringe Dexamethasone (Dexamethasone) Confirm Administered Dose 4 mg .ROUTE .K-MED ONE Stop: 11/12/19 08:42 Enoxaparin Sodium (Lovenox) 40 mg SUBCUT DAILY [facility] Last Admin: 11/14/19 08:54 Dose: 40 mg Fentanyl (Sublimaze) Confirm Administered Dose 250 mcg .ROUTE .STK-MED ONE Stop: 11/12/19 08:42 Glycopyrrolate (Robinul) Confirm Administered Dose 1 mg .ROUTE .[facility] ONE Stop: 11/12/19 08:42 Sodium Chloride (Normal Saline) 1,000 mls @ 999 mls[facility] Last Admin: 11/12/19 05:40 Dose: 999 mls/hr Sodium Chloride (Normal Saline) 1,000 mls @ 999 [facility]ls[facility] Last Admin: 11/12/19 06:30 Dose: 999 mls/hr Piperacillin Sod/Tazobactam (Sod 4.5 gm/ Sodium Chloride) 100 mls @ 100 mls/hr IV ONETIME ONE Stop: 11/12/19 07:16 Last Admin: 11/12/19 06:35 Dose: 100 mls/hr Aztreonam 1 gm/ Sodium (Chloride) 50 mls @ 100 mls/hr IV ONETIME ONE Stop: 11/12/19 07:01 Last Admin: 11/12/19 06:53 Dose: 100 mls/hr Sodium Chloride (Normal Saline) Confirm Administered Dose 100 mls @ as directed .ROUTE .ST-MED ONE Stop: 11/12/19 06:33 Last Admin: 11/12/19 06:40 Dose: Not Given Sodium Chloride (Normal Saline) Confirm Administered Dose 100 mls @ as directed .ROUTE .[facility] ONE Stop: 11/12/19 06:34 Last Admin: 11/12/19 06:40 Dose: Not Given Sodium Chloride (Normal Saline) 1,000 mls @ 500 mls/hr IV [facility] Last Admin: 11/12/19 07:36 Dose: 500 mls/hr Lactated Ringer's (Ringers, Lactated) Confirm Administered Dose 1,000 mls @ as directed .ROUTE .STK-MED ONE Stop: 11/12/19 09:01 Sodium Chloride (Normal Saline) Confirm Administered Dose 10 mls @ as directed .ROUTE .STK-MED ONE Stop: 11/12/19 09:05 Lactated Ringer's (Ringers, Lactated) Confirm Administered Dose 1,000 mls @ as directed .ROUTE .STK-MED ONE Stop: 11/12/19 09:08 Lactated Ringer's (Ringers, Lactated) Confirm Administered Dose 1,000 mls @ as directed .ROUTE .STK-MED ONE Stop: 11/12/19 09:38 Piperacillin/Tazobactam/ (Dextrose 3.375 gm/ Premix) 50 mls @ 100 mls/hr IV Q6H [facility] Last Admin: 11/14/19 07:56 Dose: 100 mls/hr Potassium Cl/Dextrose/Lact Ringer's (D5 Lr With 20 Meq Kcl) 1,000 mls @ 125 mls /hr IV ASDIRECTED [facility] Last Admin: 11/12/19 21:54 Dose: 125 mls/hr Vancomycin HCl 1 gm/ Sodium (Chloride) 250 mls @ 166.667 mls/hr IV Q12H [facility] Last Admin: 11/14/19 00:19 Dose: 166.667 mls/hr Norepinephrine Bitartrate 4 mg (/ Dextrose/Water) 250 mls @ 7.5 mls/hr IV TITRATE [facility]; Protocol Last Titration: 11/14/19 02:00 Dose: 0 mcg/min, 0 mls/hr Potassium Cl/Dextrose/Lact Ringer's (D5 Lr With 20 Meq Kcl) 1,000 mls @ 75 mls/ hr IV ASDIRECTED [facility] Last Admin: 11/13/19 18:42 Dose: 75 mls/hr Magnesium Sulfate 2 gm/ Premix 50 mls @ 25 mls/hr IV Q6H [facility] Stop: 11/14/19 17:59 Last Admin: 11/14/19 16:02 Dose: 25 mls/hr Dextrose/Lactated Ringer's (Dextrose 5%-Lactated Ringers) 1,000 mls @ 150 mls/ hr IV ASDIRECTED [facility] Last Admin: 11/15/19 07:23 Dose: 150 mls/hr Potassium Chloride 20 meq/Lidocaine HCl 2 ml/ Sodium Chloride 112 mls @ 56 mls/ hr IV Q2H [facility] Stop: 11/14/19 17:59 Last Admin: 11/14/19 16:57 Dose: 56 mls/hr Ceftazidime 1 gm/ Sodium (Chloride) 50 mls @ 100 mls/hr IV Q8HR [facility] Last Admin: 11/14/19 13:58 Dose: 100 mls/hr Lactated Ringer's (Ringers, Lactated) 1,000 mls @ 500 mls/hr IV ASDIRECTED [facility] Stop: 11/14/19 15:59 Last Admin: 11/14/19 14:03 Dose: 500 mls/hr Dextrose/Lactated Ringer's (Dextrose 5%-Lactated Ringers) 1,000 mls @ 75 mls/ hr IV ASDIRECTED [facility] Last Admin: 11/16/19 22:55 Dose: 75 mls/hr Potassium Chloride 20 meq/Lidocaine HCl 2 ml/ Sodium Chloride 112 mls @ 56 mls/ hr IV Q2H [facility] Stop: 11/16/19 13:59 Last Admin: 11/16/19 12:01 Dose: 56 mls/hr Sodium Chloride (Normal Saline) 250 mls @ 250 mls/hr IV ONETIME ONE Stop: 11/18/19 00:27 Last Admin: 11/17/19 23:50 Dose: 250 mls/hr Lactated Ringer's (Ringers, Lactated) 1,000 ml IRR .STK-MED ONE Stop: 11/12/19 09:16 Last Admin: 11/12/19 09:15 Dose: 1,000 ml Lidocaine HCl (Xylocaine 2% Jelly) 10 ml MUCMEM ONETIME ONE Stop: 11/18/19 05:53 Last Admin: 11/18/19 06:13 Dose: 10 ml Lidocaine/Epinephrine (Xylocaine 1% With Epinephrine 1:100,000) Confirm Administered Dose 50 ml .ROUTE .STK-MED ONE Stop: 11/12/19 08:35 Last Admin: 11/12/19 09:29 Dose: 20 ml Neostigmine Methylsulfate (Neostigmine) Confirm Administered Dose 5 mg .ROUTE .STK-MED ONE Stop: 11/12/19 08:42 Ondansetron HCl (Zofran) Confirm Administered Dose 4 mg .ROUTE .STK-MED ONE Stop: 11/12/19 08:42 Pantoprazole Sodium (Protonix) 40 mg PO ACBREAKFAST [facility] Last Admin: 11/13/19 08:20 Dose: 40 mg Phenylephrine HCl (Bobby-Synephrine) Confirm Administered Dose 10 mg .ROUTE .STK- MED ONE Stop: 11/12/19 09:05 Piperacillin Sod/Tazobactam Sod (Zosyn) Confirm Administered Dose 4.5 gm .ROUTE .STK-MED ONE Stop: 11/12/19 06:31 Last Admin: 11/12/19 06:39 Dose: Not Given Propofol (Diprivan 20 Ml) Confirm Administered Dose 200 mg .ROUTE .STK-MED ONE Stop: 11/12/19 08:42 Rocuronium [place] (Zemuron) Confirm Administered Dose 50 mg .ROUTE .STK-MED ONE Stop: 11/12/19 08:42 Succinylcholine Chloride (Quelicin) Confirm Administered Dose 200 mg .ROUTE .STK -MED ONE Stop: 11/12/19 08:42 - Exam Quality Assessment: DVT Prophylaxis General: Cooperative, No Acute Distress, Lethargic. No: Oriented Lungs: Clear to Auscultation, Normal Respiratory Effort Cardiovascular: Regular Rate, Regular Rhythm, No Murmurs GI/Abdominal Exam: Soft, Non-Tender, No Organomegaly, No Distention Extremities: Non-Tender, No Pedal Edema Sepsis Event Note - Evaluation Sepsis Screening Result: No Definite Risk - Focused Exam Vital Signs: Vital Signs Temp Pulse Resp BP BP Pulse Ox 11/18/19 08:16 93/81 11/18/19 07:00 98.4 F 110 H 20 87/46 L 91 L 11/18/19 03:00 99 F 91 18 102/51 L 91 L 11/17/19 23:00 97.8 F 111 H 16 102/63 93 L Date Exam was Performed: 11/18/19 Time Exam was Performed: 10:34 - Problem List Review Problem List Initiated/Reviewed/Updated: Yes - My Orders Last 24 Hours: My Active Orders 11/17/19 11:59 Convert IV to Saline Lock [OM.PC] Routine 11/17/19 12:21 Patient Status [ADT] Routine - Plan Plan:: ASSESSMENT AND PLAN Acute cholecystitis with septic shock-status post laparoscopic cholecystectomy, oral intake is been much better over the past 24 hours -Discontinue IV antibiotic therapy -Augmentin 875 mg p.o. every 12 hours -Saline lock IV -Nutritional supplement 4 times daily Aspiration pneumonia-episode of hypoxia, chest x-ray shows evidence of bilateral infiltrates versus atelectasis. Respiratory status is stabilized. -Antibiotic therapy as above Hypokalemia -Continue to monitor Down syndrome-significant disability at this time. Difficulty with communication. -Continue home medications Maintenance issues - - DVT prophylaxis -mechanical today, enoxaparin started tomorrow - Nutrition -advance per surgical instructions - Cesar catheter -placed in the emergency room for strict intake and output monitoring in a critically ill patient Admission justification -this patient will be admitted for inpatient services and is medically appropriate meeting medical necessity for inpatient admission as outlined in my documentation. I reasonably expect the patient will require inpatient services that span a period time over 2 midnights. I reasonably expect this patient to be discharged or transferred within 96 hours [facility] Disposition-anticipate discharge back to assisted living facility tomorrow
[2019-11-18] MEDS ORDERED: Sodium Chloride 0.9% 1,000 ML IV SCH ×4 (11:15→19:30)
[2019-11-18] MEDS: Albuterol/Ipratropium 3.0-0.5 MG/3 ML Neb Soln NEB PRN ×2 (16:48→22:42)
[2019-11-18] MEDS: Amoxicillin/Clavulanate K 875-125 MG Tab PO SCH (17:26)
[2019-11-18] MEDS ORDERED: Lidocaine 2% Jelly 10 ML Urojet MUCMEM PRN (21:43)
[2019-11-18] MEDS ORDERED: Furosemide 20 MG/2 ML VIAL IVPUSH ONE (23:15)
--- NOTE | 2019-11-18 23:19 | PCM.SN.2 ---
- Free Text/Narrative Note: time: 23:14 call from 2 [facility]. concerns of increased respiratory rate and fluid overload. has been given nebulizer treatment without much improvement O) vital signs 36.7-114-21 Oxygen sat low 90's on 4 liters. increased work of respiration, expiratory wheezes has had 2 liter fluid bolus and now 3 rd liter of IV Normal saline 125ml/hr A) labor resp. rate, concerns for fluid overload P) discontinue IV fluids and saline lock. give IV Lasix 20 mg IVP now monitor vital signs.
[2019-11-19] MEDS: Acetaminophen/HYDROcodone 325-5 MG Tab PO PRN ×3 (07:50→22:14)
[2019-11-19] MEDS: Lactobacillus Rhamnosus GG (Probiotic) Cap PO SCH ×2 (08:03→20:49)
[2019-11-19] MEDS: Donepezil 10 MG Tab PO SCH (08:03)
[2019-11-19] MEDS: QUEtiapine 25 MG Tab PO SCH ×3 (08:03→20:49)
[2019-11-19] MEDS: levETIRAcetam 250 MG Tab PO SCH ×2 (08:04→20:49)
[2019-11-19] MEDS: Enoxaparin 40 MG/0.4 ML Syringe SUBCUT SCH (08:04)
[2019-11-19] MEDS: Amoxicillin/Clavulanate K 875-125 MG Tab PO SCH (08:04)
[2019-11-19] MEDS: Magnesium Oxide 400 MG Tab PO SCH ×2 (08:04→20:49)
[2019-11-19] MEDS: Pantoprazole 40 MG Delayed-Release Granules 1 Packet PO SCH (08:05)
[2019-11-19] MEDS: Potassium Chloride 10 MEQ Cap.ER PO SCH (08:05)
[2019-11-19] MEDS: Sertraline 50 MG Tab PO SCH (08:06)
[2019-11-19] MEDS: OXcarbazepine 300 MG Tab PO SCH ×2 (08:06→20:49)
[2019-11-19] MEDS ORDERED: Vancomycin 1 GM SDV IV SCH (09:00)
[2019-11-19] MEDS: Levofloxacin/Dextrose 5%-Water 750 MG in Premix Bag 1 BAG IV SCH (09:20)
--- NOTE | 2019-11-19 09:44 | PCM.PN ---
- General Info Date of Service: 11/19/19 Subjective Update: Mr. Ulrich unfortunately continued to experience some hypotension through the day yesterday and was given several fluid boluses. In the evening he developed more hypoxia was felt to be somewhat fluid overloaded and did receive IV furosemide. Blood pressure has been more stable but he is required increased level of supplemental oxygen. White blood cell count this morning is increased, previously had been normal. Chest x-ray this morning shows evidence of large infiltrate in the right lung. Because of his underlying Down syndrome and associated dementia he is unable to provide a meaningful history concerning recent symptoms or review of systems. - Patient Data Vitals - Most Recent: Last Vital Signs Temp 98.3 F 11/19/19 07:00 Pulse 110 H 11/19/19 07:00 Resp 22 H 11/19/19 07:00 BP 109/53 L 11/19/19 07:00 Pulse Ox 84 L 11/19/19 07:00 Weight - Most Recent: 160 lb I&O - Last 24 Hours: Intake & Output 11/18/19 11/19/19 11/19/19 22:59 06:59 14:59 Intake Total 723 460 Balance 723 460 Lab Results Last 24 Hours: Laboratory Results - last 24 hr 11/19/19 11/19/19 Range/Units 04:30 04:30 WBC 17.8 H (4.5-11.0) K/uL RBC 3.07 L (4.30-5.90) M/uL Hgb 9.7 L (12.0-15.0) g/dL Hct 31.0 L (40.0-54.0) % MCV 101 H (80-98) fL MCH 32 H (27-31) pg MCHC 31 L (32-36) % Plt Count 227 (150-400) K/uL Add Manual Diff Yes Neutrophils % (Manual) 91 H (36-66) % Band Neutrophils % 1 L (5-11) % Lymphocytes % (Manual) 4 L (24-44) % Monocytes % (Manual) 4 (2-6) % Sodium 143 (140-148) mmol/L Potassium 3.3 L (3.6-5.2) mmol/L Chloride 107 (100-108) mmol/L Carbon Dioxide 32 (21-32) mmol/L Anion Gap 7.3 (5.0-14.0) mmol/L BUN 4 L (7-18) mg/dL Creatinine 0.8 (0.8-1.3) mg/dL Est Cr Clr Drug Dosing 96.19 mL/min Estimated GFR (MDRD) > 60 (>60) Glucose 101 (74-106) mg/dL Calcium 7.6 L (8.5-10.1) mg/dL Med Orders - Current: Current Medications Hydrocodone Bitart/Acetaminophen ([place] 325-5 Mg) 1 tab PO Q4H PRN PRN Reason: Pain (moderate 4-6) Last Admin: 11/19/19 07:50 Dose: 1 tab Albuterol/Ipratropium (Duoneb 3.0-0.5 Mg/3 Ml) 3 ml NEB Q4H PRN PRN Reason: Dyspnea Last Admin: 11/18/19 22:42 Dose: 3 ml Benzocaine/Menthol (Cepacol Sore Throat) 1 lozenge MUCMEM Q4H PRN PRN Reason: Sore Throat Docusate Sodium (Colace) 100 mg PO BID PRN PRN Reason: Constipation Donepezil HCl (Aricept) 10 mg PO DAILY [facility] Last Admin: 11/19/19 08:03 Dose: 10 mg Enoxaparin Sodium (Lovenox) 40 mg SUBCUT DAILY [facility] Last Admin: 11/19/19 08:04 Dose: 40 mg Hydrocortisone (Hydrocortisone 1% Crm) 0 gm TOP BID PRN PRN Reason: Rash Hydroxyzine HCl (Vistaril) 100 mg IM Q4H PRN PRN Reason: Breakthrough Pain Levofloxacin/Dextrose 750 mg/ (Premix) 150 mls @ 100 mls/hr IV Q24H [facility] Last Admin: 11/19/19 09:20 Dose: 100 mls/hr Piperacillin/Tazobactam/ (Dextrose 3.375 gm/ Premix) 50 mls @ 100 mls/hr IV Q6HR [facility] Vancomycin HCl 1 gm/ Sodium (Chloride) 250 mls @ 167 mls/hr IV Q12H [facility] Lactobacillus Rhamnosus (Culturelle) 1 cap PO BID [facility] Last Admin: 11/19/19 08:03 Dose: 1 cap Levetiracetam (Keppra) 750 mg PO BID [facility] Last Admin: 11/19/19 08:04 Dose: 750 mg Lidocaine HCl (Xylocaine 2% Jelly) 10 ml MUCMEM BID PRN PRN Reason: Other Magnesium Oxide (Magnesium Oxide) 400 mg PO BID [facility] Last Admin: 11/19/19 08:04 Dose: 400 mg Ondansetron HCl (Zofran Odt) 4 mg PO Q4H PRN PRN Reason: Nausea/Vomiting Ondansetron HCl (Zofran) 4 mg IVPUSH Q4H PRN PRN Reason: Nausea/Vomiting Oxcarbazepine (Trileptal) 150 mg PO BID [facility] Last Admin: 11/19/19 08:06 Dose: 150 mg Pantoprazole Sodium (Protonix Granules) 40 mg PO DAILY@0730 [facility] Last Admin: 11/19/19 08:05 Dose: 40 mg Potassium Chloride (Potassium Chloride) 10 meq PO DAILY [facility] Last Admin: 11/19/19 08:05 Dose: 10 meq Quetiapine Fumarate (Seroquel) 50 mg PO TID [facility] Last Admin: 11/19/19 08:03 Dose: 50 mg Sertraline HCl (Zoloft) 50 mg PO DAILY [facility] Last Admin: 11/19/19 08:06 Dose: 50 mg Zolpidem Tartrate (Ambien) 5 mg PO BEDTIME PRN PRN Reason: Sleep Discontinued Medications Acetaminophen (Tylenol) 650 mg RECTAL NOW ONE Stop: 11/12/19 05:59 Last Admin: 11/12/19 06:03 Dose: 650 mg Amoxicillin/Clavulanate Potassium (Augmentin 875 Mg/125 Mg) 1 tab PO BID [facility] Last Admin: 11/19/19 08:04 Dose: 1 tab Bupivacaine HCl (Marcaine 0.5%) Confirm Administered Dose 50 ml .ROUTE .STK-MED ONE Stop: 11/12/19 08:35 Last Admin: 11/12/19 09:29 Dose: 20 ml Ropivacaine 36 ml/Dexamethasone 8 mg/Epinephrine HCl 0.4 mg/ Sodium Chloride 41.6 ml 0 ml NERVRT ASDIRECTED [facility] Last Admin: 11/12/19 09:35 Dose: 80 syringe Dexamethasone (Dexamethasone) Confirm Administered Dose 4 mg .ROUTE .STK-MED ONE Stop: 11/12/19 08:42 Enoxaparin Sodium (Lovenox) 40 mg SUBCUT DAILY [facility] Last Admin: 11/14/19 08:54 Dose: 40 mg Fentanyl (Sublimaze) Confirm Administered Dose 250 mcg .ROUTE .STK-MED ONE Stop: 11/12/19 08:42 Furosemide (Lasix) 20 mg IVPUSH ONETIME ONE Stop: 11/18/19 23:16 Last Admin: 11/18/19 23:54 Dose: 20 mg Glycopyrrolate (Robinul) Confirm Administered Dose 1 mg .ROUTE .STK-MED ONE Stop: 11/12/19 08:42 Sodium Chloride (Normal Saline) 1,000 mls @ 999 [facility] Admin: 11/12/19 05:40 Dose: 999 mls/hr Sodium Chloride (Normal Saline) 1,000 mls @ [facility] Last Admin: 11/12/19 06:30 Dose: 999 mls/hr Piperacillin Sod/Tazobactam (Sod 4.5 gm/ Sodium Chloride) 100 mls @ 100 mls/hr IV ONETIME ONE Stop: 11/12/19 07:16 Last Admin: 11/12/19 06:35 Dose: 100 mls/hr Aztreonam 1 gm/ Sodium (Chloride) 50 mls @ 100 mls/hr IV ONETIME ONE Stop: 11/12/19 07:01 Last Admin: 11/12/19 06:53 Dose: 100 mls/hr Sodium Chloride (Normal Saline) Confirm Administered Dose 100 mls @ as directed .ROUTE .STK-MED ONE Stop: 11/12/19 06:33 Last Admin: 11/12/19 06:40 Dose: Not Given Sodium Chloride (Normal Saline) Confirm Administered Dose 100 mls @ as directed .ROUTE .STK-MED ONE Stop: 11/12/19 06:34 Last Admin: 11/12/19 06:40 Dose: Not Given Sodium Chloride (Normal Saline) 1,000 mls @ [facility] Last Admin: 11/12/19 07:36 Dose: 500 mls/hr Lactated Ringer's (Ringers, Lactated) Confirm Administered Dose 1,000 mls @ as directed .ROUTE .STK-MED ONE Stop: 11/12/19 09:01 Sodium Chloride (Normal Saline) Confirm Administered Dose 10 mls @ as directed .ROUTE .STK-MED ONE Stop: 11/12/19 09:05 Lactated Ringer's (Ringers, Lactated) Confirm Administered Dose 1,000 mls @ as directed .ROUTE .STK-MED ONE Stop: 11/12/19 09:08 Lactated Ringer's (Ringers, Lactated) Confirm Administered Dose 1,000 mls @ as directed .ROUTE .STK-MED ONE Stop: 11/12/19 09:38 Piperacillin/Tazobactam/ (Dextrose 3.375 gm/ Premix) 50 mls @ 100 mls/hr IV Q6H [facility] Last Admin: 11/14/19 07:56 Dose: 100 mls/hr Potassium Cl/Dextrose/Lact Ringer's (D5 Lr With 20 Meq Kcl) 1,000 mls @ 125 mls /hr IV ASDIRECTED [facility] Last Admin: 11/12/19 21:54 Dose: 125 mls/hr Vancomycin HCl 1 gm/ Sodium (Chloride) 250 mls @ 166.667 mls/hr IV Q12H [facility] Last Admin: 11/14/19 00:19 Dose: 166.667 mls/hr Norepinephrine Bitartrate 4 mg (/ Dextrose/Water) 250 mls @ 7.5 mls/hr IV TITRATE [facility]; Protocol Last Titration: 11/14/19 02:00 Dose: 0 mcg/min, 0 mls/hr Potassium Cl/Dextrose/Lact Ringer's (D5 Lr With 20 Meq Kcl) 1,000 mls @ 75 mls/ hr IV ASDIRECTED [facility] Last Admin: 11/13/19 18:42 Dose: 75 mls/hr Magnesium Sulfate 2 gm/ Premix 50 mls @ 25 mls/hr IV Q6H [facility] Stop: 11/14/19 17:59 Last Admin: 11/14/19 16:02 Dose: 25 mls/hr Dextrose/Lactated Ringer's (Dextrose 5%-Lactated Ringers) 1,000 mls @ 150 mls/ hr IV ASDIRECTED [facility] Last Admin: 11/15/19 07:23 Dose: 150 mls/hr Potassium Chloride 20 meq/Lidocaine HCl 2 ml/ Sodium Chloride 112 mls @ 56 mls/ hr IV Q2H [facility] Stop: 11/14/19 17:59 Last Admin: 11/14/19 16:57 Dose: 56 mls/hr Ceftazidime 1 gm/ Sodium (Chloride) 50 mls @ 100 mls/hr IV Q8HR [facility] Last Admin: 11/14/19 13:58 Dose: 100 mls/hr Lactated Ringer's (Ringers, Lactated) 1,000 mls @ 500 mls/hr IV ASDIRECTED [facility] Stop: 11/14/19 15:59 Last Admin: 11/14/19 14:03 Dose: 500 mls/hr Levofloxacin/Dextrose 750 mg/ (Premix) 150 mls @ 100 mls/hr IV Q24H [facility] Last Admin: 11/17/19 16:48 Dose: 100 mls/hr Piperacillin/Tazobactam/ (Dextrose 3.375 gm/ Premix) 50 mls @ 100 mls/hr IV Q6H [facility] Last Admin: 11/18/19 09:16 Dose: 100 mls/hr Dextrose/Lactated Ringer's (Dextrose 5%-Lactated Ringers) 1,000 mls @ 75 mls/ hr IV ASDIRECTED [facility] Last Admin: 11/16/19 22:55 Dose: 75 mls/hr Potassium Chloride 20 meq/Lidocaine HCl 2 ml/ Sodium Chloride 112 mls @ 56 mls/ hr IV Q2H [facility] Stop: 11/16/19 13:59 Last Admin: 11/16/19 12:01 Dose: 56 mls/hr Sodium Chloride (Normal Saline) 250 mls @ 250 mls/hr IV ONETIME ONE Stop: 11/18/19 00:27 Last Admin: 11/17/19 23:50 Dose: 250 mls/hr Sodium Chloride (Normal Saline) 1,000 mls @ 500 mls/hr IV ASDIRECTED [facility] Last Admin: 11/18/19 11:31 Dose: 500 mls/hr Sodium Chloride (Normal Saline) 1,000 mls @ 250 mls/hr IV ASDIRECTED [facility] Stop: 11/18/19 18:45 Last Admin: 11/18/19 14:58 Dose: 250 mls/hr Sodium Chloride (Normal Saline) 1,000 mls @ 125 mls/hr IV ASDIRECTED [facility] Sodium Chloride (Normal Saline) 1,000 mls @ 125 mls/hr IV ASDIRECTED [facility] Stop: 11/19/19 03:30 Last Admin: 11/18/19 19:59 Dose: 125 mls/hr Lactated Ringer's (Ringers, Lactated) 1,000 ml IRR .STK-MED ONE Stop: 11/12/19 09:16 Last Admin: 11/12/19 09:15 Dose: 1,000 ml Lidocaine HCl (Xylocaine 2% Jelly) 10 ml MUCMEM ONETIME ONE Stop: 11/18/19 05:53 Last Admin: 11/18/19 06:13 Dose: 10 ml Lidocaine/Epinephrine (Xylocaine 1% With Epinephrine 1:100,000) Confirm Administered Dose 50 ml .ROUTE .STK-MED ONE Stop: 11/12/19 08:35 Last Admin: 11/12/19 09:29 Dose: 20 ml Neostigmine Methylsulfate (Neostigmine) Confirm Administered Dose 5 mg .ROUTE .STK-MED ONE Stop: 11/12/19 08:42 Ondansetron HCl (Zofran) Confirm Administered Dose 4 mg .ROUTE .STK-MED ONE Stop: 11/12/19 08:42 Pantoprazole Sodium (Protonix) 40 mg PO ACBREAKFAST [facility] Last Admin: 11/13/19 08:20 Dose: 40 mg Phenylephrine HCl (Bobby-Synephrine) Confirm Administered Dose 10 mg .ROUTE .STK- MED ONE Stop: 11/12/19 09:05 Piperacillin Sod/Tazobactam Sod (Zosyn) Confirm Administered Dose 4.5 gm .ROUTE .STK-MED ONE Stop: 11/12/19 06:31 Last Admin: 11/12/19 06:39 Dose: Not Given Propofol (Diprivan 20 Ml) Confirm Administered Dose 200 mg .ROUTE .STK-MED ONE Stop: 11/12/19 08:42 Rocuronium [place] (Zemuron) Confirm Administered Dose 50 mg .ROUTE .STK-MED ONE Stop: 11/12/19 08:42 Succinylcholine Chloride (Quelicin) Confirm Administered Dose 200 mg .ROUTE .STK -MED ONE Stop: 11/12/19 08:42 Vancomycin HCl (Vancomycin) 1 gm IV .PHARMACY TO DOSE [facility] Stop: 11/19/19 09:01 - Exam Quality Assessment: Supplemental Oxygen, DVT Prophylaxis General: Cooperative, Mild Distress, Lethargic. No: Oriented Lungs: Decreased Breath Sounds, Rales, Rhonchi. No: Rub, Wheezing Cardiovascular: Regular Rhythm, No Murmurs, Tachycardia GI/Abdominal Exam: Soft, Non-Tender, No Organomegaly, No Distention Extremities: Non-Tender, Pedal Edema Skin: Warm, Dry, Intact Sepsis Event Note - Evaluation Sepsis Screening Result: Sepsis Risk - Focused Exam Vital Signs: Vital Signs Temp Pulse Resp BP Pulse Ox 11/19/19 07:00 98.3 F 110 H 22 H 109/53 L 84 L 11/19/19 03:00 97.8 F 111 H 18 95/53 L 94 L 11/18/19 23:11 114 H 11/18/19 22:35 98.1 F 99 21 H 101/57 L 90 L Date Exam was Performed: 11/19/19 Time Exam was Performed: 10:14 - Problem List Review Problem List Initiated/Reviewed/Updated: Yes - My Orders Last 24 Hours: My Active Orders 11/19/19 08:12 Chest 1V Frontal [CR] Stat 11/19/19 08:30 Levofloxacin/Dextrose 5%-Water [Levaquin in D5W 750 MG/150 ML] 750 mg Premix Bag 1 bag IV Q24H 11/19/19 09:20 Overnight Pulse Oximetry [RC] Click to Edit Pulse Oximetry Continuous Monitoring [OM.PC] Routine 11/19/19 10:00 Piperacillin/Tazobactam/Dext [Zosyn in Dextrose Iso-Osmotic 3.375 GM] 3.375 gm Premix Bag 1 bag IV Q6HR 11/20/19 05:00 BASIC METABOLIC PANEL,BMP [CHEM] Timed CBC WITH AUTO DIFF [HEME] Timed - Plan Plan:: ASSESSMENT AND PLAN Acute cholecystitis with septic shock-status post laparoscopic cholecystectomy, he has been more lethargic with decreased oral intake -Saline lock IV -Nutritional supplement 4 times daily Pneumonia-since yesterday he has required increased level of supplemental oxygen. Chest x-ray shows large infiltrate right lung and white blood cell count has increased. The antibiotic therapy had been de-escalated as he was doing well and appeared to be improving. Previously discussed with family at the time of his last episode of hypoxia, they did not want to proceed with further evaluation including CT scan. I reviewed this again with his Sister Cande and she confirms that they do not want to proceed with CT scan or other aggressive evaluation. -Resume broad-spectrum IV antibiotic therapy with vancomycin, Zosyn, and levofloxacin -Repeat blood cultures this morning -Supplemental oxygen as needed Hypokalemia -Continue to monitor Down syndrome-significant disability at this time. Difficulty with communication. -Continue home medications Maintenance issues - - DVT prophylaxis -mechanical today, enoxaparin started tomorrow - Nutrition -advance per surgical instructions - Cesar catheter -placed in the emergency room for strict intake and output monitoring in a critically ill patient Admission justification -this patient will be admitted for inpatient services and is medically appropriate meeting medical necessity for inpatient admission as outlined in my documentation. I reasonably expect the patient will require inpatient services that span a period time over 2 midnights. I reasonably expect this patient to be discharged or transferred within 96 hours after admission to the [facility]. Disposition-anticipate discharge back to assisted living facility
[2019-11-19] MEDS: Piperacillin/Tazobactam/Dext 3.375 GM in Premix Bag 1 BAG IV SCH ×3 (10:47→21:01)
[2019-11-19] MEDS: Norepinephrine 4 MG in Dextrose 5% in Water 246 ML IV SCH ×2 (11:57)
[2019-11-19] MEDS ORDERED: Potassium Chloride 10 MEQ Cap.ER PO ONE (14:00)
[2019-11-19] MEDS: Potassium Chloride 20 MEQ, Lidocaine 1% 2 ML in Sodium Chloride 0.9% 100 ML IV SCH ×2 (14:03→16:57)
[2019-11-19] MEDS: Albuterol/Ipratropium 3.0-0.5 MG/3 ML Neb Soln NEB PRN (21:01)
[2019-11-20] MEDS: Norepinephrine 4 MG in Dextrose 5% in Water 246 ML IV SCH ×4 (01:37→15:52)
[2019-11-20] MEDS: Piperacillin/Tazobactam/Dext 3.375 GM in Premix Bag 1 BAG IV SCH ×4 (04:03→22:14)
[2019-11-20] MEDS: Albuterol/Ipratropium 3.0-0.5 MG/3 ML Neb Soln NEB PRN ×2 (04:07→17:30)
[2019-11-20] MEDS: Levofloxacin/Dextrose 5%-Water 750 MG in Premix Bag 1 BAG IV SCH (08:13)
[2019-11-20] MEDS: Potassium Chloride 10 MEQ Cap.ER PO SCH (08:19)
[2019-11-20] MEDS: Donepezil 10 MG Tab PO SCH (08:19)
[2019-11-20] MEDS: QUEtiapine 25 MG Tab PO SCH ×3 (08:19→20:42)
[2019-11-20] MEDS: OXcarbazepine 300 MG Tab PO SCH ×2 (08:19→20:41)
[2019-11-20] MEDS: Magnesium Oxide 400 MG Tab PO SCH ×2 (08:19→20:40)
[2019-11-20] MEDS: Enoxaparin 40 MG/0.4 ML Syringe SUBCUT SCH (08:19)
[2019-11-20] MEDS: Pantoprazole 40 MG Delayed-Release Granules 1 Packet PO SCH (08:20)
[2019-11-20] MEDS: Lactobacillus Rhamnosus GG (Probiotic) Cap PO SCH ×2 (08:20→20:41)
[2019-11-20] MEDS: Sertraline 50 MG Tab PO SCH (08:20)
[2019-11-20] MEDS: levETIRAcetam 250 MG Tab PO SCH ×2 (08:20→20:41)
[2019-11-20] MEDS ORDERED: Furosemide 20 MG/2 ML VIAL IVPUSH ONE (09:12)
--- NOTE | 2019-11-20 09:16 | PCM.PN ---
- General Info Date of Service: 11/20/19 Subjective Update: There were no acute events overnight. The patient remains dependent on norepinephrine to maintain adequate blood pressure. He is minimally interactive this morning and does not provide any history or information. Per nursing report he has not been eating very well. He continues to be on 3 L of supplemental oxygen. Cultures all remain negative. He is very weak. Functional Status: Reports: Pain Controlled - Review of Systems General: Denies: Fever - Patient Data Vitals - Most Recent: Last Vital Signs Temp 36.6 C 11/20/19 08:00 Pulse 97 11/20/19 08:00 Resp 23 H 11/20/19 08:00 BP 104/71 11/20/19 08:00 Pulse Ox 93 L 11/20/19 08:00 Weight - Most Recent: 72.575 kg I&O - Last 24 Hours: Intake & Output 11/19/19 11/20/19 11/20/19 22:59 06:59 14:59 Intake Total 570 490 180 Balance 570 490 180 Lab Results Last 24 Hours: Laboratory Results - last 24 hr 11/20/19 11/20/19 Range/Units 04:10 04:10 WBC 17.9 H (4.5-11.0) K/uL RBC 3.18 L (4.30-5.90) M/uL Hgb 10.1 L (12.0-15.0) g/dL Hct 31.9 L (40.0-54.0) % MCV 100 H (80-98) fL MCH 32 H (27-31) pg MCHC 32 (32-36) % Plt Count 279 (150-400) K/uL Neut % (Auto) 86 H (36-66) % Lymph % (Auto) 7 L (24-44) % [place] % (Auto) 7 H (2-6) % Eos % (Auto) 0 L (2-4) % Baso % (Auto) 0 (0-1) % Sodium 142 (140-148) mmol/L Potassium 3.8 (3.6-5.2) mmol/L Chloride 107 (100-108) mmol/L Carbon Dioxide 30 (21-32) mmol/L Anion Gap 4.6 L (5.0-14.0) mmol/L BUN 5 L (7-18) mg/dL Creatinine 0.7 L (0.8-1.3) mg/dL Est Cr Clr Drug Dosing 108.57 mL/min Estimated GFR (MDRD) > 60 (>60) Glucose 110 H (74-106) mg/dL Calcium 7.2 L (8.5-10.1) mg/dL Med Orders - Current: Current Medications Hydrocodone Bitart/Acetaminophen ([place] 325-5 Mg) 1 tab PO Q4H PRN PRN Reason: Pain (moderate 4-6) Last Admin: 11/19/19 22:14 Dose: 1 tab Albuterol/Ipratropium (Duoneb 3.0-0.5 Mg/3 Ml) 3 ml NEB Q4H PRN PRN Reason: Dyspnea Last Admin: 11/20/19 04:07 Dose: 3 ml Benzocaine/Menthol (Cepacol Sore Throat) 1 lozenge MUCMEM Q4H PRN PRN Reason: Sore Throat Docusate Sodium (Colace) 100 mg PO BID PRN PRN Reason: Constipation Donepezil HCl (Aricept) 10 mg PO DAILY [facility] Last Admin: 11/20/19 08:19 Dose: 10 mg Enoxaparin Sodium (Lovenox) 40 mg SUBCUT DAILY [facility] Last Admin: 11/20/19 08:19 Dose: 40 mg Furosemide (Lasix) 20 mg IVPUSH ONETIME ONE Stop: 11/20/19 09:13 Hydrocortisone (Hydrocortisone 1% Crm) 0 gm TOP BID PRN PRN Reason: Rash Hydroxyzine HCl (Vistaril) 100 mg IM Q4H PRN PRN Reason: Breakthrough Pain Levofloxacin/Dextrose 750 mg/ (Premix) 150 mls @ 100 mls/hr IV Q24H [facility] Last Admin: 11/20/19 08:13 Dose: 100 mls/hr Piperacillin/Tazobactam/ (Dextrose 3.375 gm/ Premix) 50 mls @ 100 mls/hr IV Q6HR [facility] Last Admin: 11/20/19 04:03 Dose: 100 mls/hr Vancomycin HCl 1 gm/ Sodium (Chloride) 250 mls @ 167 mls/hr IV Q12H [facility] Last Admin: 11/19/19 22:18 Dose: 167 mls/hr Norepinephrine Bitartrate 4 mg (/ Dextrose/Water) 250 mls @ 7.5 mls/hr IV TITRATE [facility]; Protocol Last Titration: 11/20/19 08:05 Dose: 3 mcg/min, 11.25 mls/hr Lactobacillus Rhamnosus (Culturelle) 1 cap PO BID [facility] Last Admin: 11/20/19 08:20 Dose: 1 cap Levetiracetam (Keppra) 750 mg PO BID [facility] Last Admin: 11/20/19 08:20 Dose: 750 mg Lidocaine HCl (Xylocaine 2% Jelly) 10 ml MUCMEM BID PRN PRN Reason: Other Magnesium Oxide (Magnesium Oxide) 400 mg PO BID [facility] Last Admin: 11/20/19 08:19 Dose: 400 mg Ondansetron HCl (Zofran Odt) 4 mg PO Q4H PRN PRN Reason: Nausea/Vomiting Ondansetron HCl (Zofran) 4 mg IVPUSH Q4H PRN PRN Reason: Nausea/Vomiting Oxcarbazepine (Trileptal) 150 mg PO BID [facility] Last Admin: 11/20/19 08:19 Dose: 150 mg Pantoprazole Sodium (Protonix Granules) 40 mg PO DAILY@0730 [facility] Last Admin: 11/20/19 08:20 Dose: 40 mg Potassium Chloride (Potassium Chloride) 10 meq PO DAILY [facility] Last Admin: 11/20/19 08:19 Dose: 10 meq Quetiapine Fumarate (Seroquel) 50 mg PO TID [facility] Last Admin: 11/20/19 08:19 Dose: 50 mg Sertraline HCl (Zoloft) 50 mg PO DAILY [facility] Last Admin: 11/20/19 08:20 Dose: 50 mg Zolpidem Tartrate (Ambien) 5 mg PO BEDTIME PRN PRN Reason: Sleep Discontinued Medications Acetaminophen (Tylenol) 650 mg RECTAL NOW ONE Stop: 11/12/19 05:59 Last Admin: 11/12/19 06:03 Dose: 650 mg Amoxicillin/Clavulanate Potassium (Augmentin 875 Mg/125 Mg) 1 tab PO BID [facility] Last Admin: 11/19/19 08:04 Dose: 1 tab Bupivacaine HCl (Marcaine 0.5%) Confirm Administered Dose 50 ml .ROUTE .STK-MED ONE Stop: 11/12/19 08:35 Last Admin: 11/12/19 09:29 Dose: 20 ml Ropivacaine 36 ml/Dexamethasone 8 mg/Epinephrine HCl 0.4 mg/ Sodium Chloride 41.6 ml 0 [facility] Last Admin: 11/12/19 09:35 Dose: 80 syringe Dexamethasone (Dexamethasone) Confirm Administered Dose 4 [address] .[address] .[facility] ONE Stop: 11/12/19 08:42 Enoxaparin Sodium (Lovenox) 40 mg SUBCUT DAILY [facility] Last Admin: 11/14/19 08:54 Dose: 40 mg Fentanyl (Sublimaze) Confirm Administered Dose 250 mcg .[address] .[facility] ONE Stop: 11/12/19 08:42 Furosemide (Lasix) 20 mg IVPUSH ONETIME ONE Stop: 11/18/19 23:16 Last Admin: 11/18/19 23:54 Dose: 20 mg Glycopyrrolate (Robinul) Confirm Administered Dose 1 mg .R[address]TE .[facility] ONE Stop: 11/12/19 08:42 Sodium Chloride (Normal Saline) 1,000 mls @ 999 [facility] Admin: 11/12/19 05:40 Dose: 999 mls/hr Sodium Chloride (Normal Saline) 1,000 mls @ 999 mls/hr [facility] Last Admin: 11/12/19 06:30 Dose: 999 mls/hr Piperacillin Sod/Tazobactam (Sod 4.5 gm/ Sodium Chloride) 100 mls @ 100 mls/hr IV ONETIME ONE Stop: 11/12/19 07:16 Last Admin: 11/12/19 06:35 Dose: 100 mls/hr Aztreonam 1 gm/ Sodium (Chloride) 50 mls @ 100 mls/hr IV ONETIME ONE Stop: 11/12/19 07:01 Last Admin: 11/12/19 06:53 Dose: 100 mls/hr Sodium Chloride (Normal Saline) Confirm Administered Dose 100 mls @ as directed .ROUTE .[facility] ONE Stop: 11/12/19 06:33 Last Admin: 11/12/19 06:40 Dose: Not Given Sodium Chloride (Normal Saline) Confirm Administered Dose 100 mls @ as directed .ROUTE .[facility] ONE Stop: 11/12/19 06:34 Last Admin: 11/12/19 06:40 Dose: Not Given Sodium Chloride (Normal Saline) 1,000 mls @ 500 mls/hr IV ASDIRECT [facility] Last Admin: 11/12/19 07:36 Dose: 500 mls/hr Lactated Ringer's (Ringers, Lactated) Confirm Administered Dose 1,000 mls @ as directed .ROUTE .ST-MED ONE Stop: 11/12/19 09:01 Sodium Chloride (Normal Saline) Confirm Administered Dose 10 mls @ as directed .ROUTE .STK-MED ONE Stop: 11/12/19 09:05 Lactated Ringer's (Ringers, Lactated) Confirm Administered Dose 1,000 mls @ as directed .ROUTE .ST-MED ONE Stop: 11/12/19 09:08 Lactated Ringer's (Ringers, Lactated) Confirm Administered Dose 1,000 mls @ as directed .ROUTE .[facility] ONE Stop: 11/12/19 09:38 Piperacillin/Tazobactam/ (Dextrose 3.375 gm/ Premix) 50 mls @ 100 mls/hr IV Q6H [facility] Last Admin: 11/14/19 07:56 Dose: 100 mls/hr Potassium Cl/Dextrose/Lact Ringer's (D5 Lr With 20 Meq Kcl) 1,000 mls @ 125 mls /hr IV ASDIRECTED [facility] Last Admin: 11/12/19 21:54 Dose: 125 mls/hr Vancomycin HCl 1 gm/ Sodium (Chloride) 250 mls @ 166.667 mls/hr IV Q12H [facility] Last Admin: 11/14/19 00:19 Dose: 166.667 mls/hr Norepinephrine Bitartrate 4 mg (/ Dextrose/Water) 250 mls @ 7.5 mls/hr IV TITRATE [facility]; Protocol Last Titration: 11/14/19 02:00 Dose: 0 mcg/min, 0 mls/hr Potassium Cl/Dextrose/Lact Ringer's (D5 Lr With 20 Meq Kcl) 1,000 mls @ 75 mls/ hr IV ASDIRECTED [facility] Last Admin: 11/13/19 18:42 Dose: 75 mls/hr Magnesium Sulfate 2 gm/ Premix 50 mls @ 25 mls/hr IV Q6H [facility] Stop: 11/14/19 17:59 Last Admin: 11/14/19 16:02 Dose: 25 mls/hr Dextrose/Lactated Ringer's (Dextrose 5%-Lactated Ringers) 1,000 mls @ 150 mls/ hr IV ASDIRECTED [facility] Last Admin: 11/15/19 07:23 Dose: 150 mls/hr Potassium Chloride 20 meq/Lidocaine HCl 2 ml/ Sodium Chloride 112 mls @ 56 mls/ hr IV Q2H [facility] Stop: 11/14/19 17:59 Last Admin: 11/14/19 16:57 Dose: 56 mls/hr Ceftazidime 1 gm/ Sodium (Chloride) 50 mls @ 100 mls/hr IV Q8HR [facility] Last Admin: 11/14/19 13:58 Dose: 100 mls/hr Lactated Ringer's (Ringers, Lactated) 1,000 mls @ 500 mls/hr IV ASDIRECTED [facility] Stop: 11/14/19 15:59 Last Admin: 11/14/19 14:03 Dose: 500 mls/hr Levofloxacin/Dextrose 750 mg/ (Premix) 150 mls @ 100 mls/hr IV Q24H [facility] Last Admin: 11/17/19 16:48 Dose: 100 mls/hr Piperacillin/Tazobactam/ (Dextrose 3.375 gm/ Premix) 50 mls @ 100 mls/hr IV Q6H [facility] Last Admin: 11/18/19 09:16 Dose: 100 mls/hr Dextrose/Lactated Ringer's (Dextrose 5%-Lactated Ringers) 1,000 mls @ 75 mls/ hr IV ASDIRECTED [facility] Last Admin: 11/16/19 22:55 Dose: 75 mls/hr Potassium Chloride 20 meq/Lidocaine HCl 2 ml/ Sodium Chloride 112 mls @ 56 mls/ hr IV Q2H [facility] Stop: 11/16/19 13:59 Last Admin: 11/16/19 12:01 Dose: 56 mls/hr Sodium Chloride (Normal Saline) 250 mls @ 250 mls/hr IV ONETIME ONE Stop: 11/18/19 00:27 Last Admin: 11/17/19 23:50 Dose: 250 mls/hr Sodium Chloride (Normal Saline) 1,000 mls @ 500 mls/hr IV ASDIRECTED [facility] Last Admin: 11/18/19 11:31 Dose: 500 mls/hr Sodium Chloride (Normal Saline) 1,000 mls @ 250 mls/hr IV ASDIRECTED [facility] Stop: 11/18/19 18:45 Last Admin: 11/18/19 14:58 Dose: 250 mls/hr Sodium Chloride (Normal Saline) 1,000 mls @ 125 mls/hr IV ASDIRECTED [facility] Sodium Chloride (Normal Saline) 1,000 mls @ 125 mls/hr IV ASD[facility]RECTED [facility] Stop: 11/19/19 03:30 Last Admin: 11/18/19 19:59 Dose: 125 mls/hr Potassium Chloride 20 meq/Lidocaine HCl 2 ml/ Sodium Chloride 112 mls @ 56 mls/ hr IV Q2H [facility] Stop: 11/19/19 17:59 Last Admin: 11/19/19 16:57 Dose: 56 mls/hr Lactated Ringer's (Ringers, Lactated) 1,000 ml IRR .STK-MED ONE Stop: 11/12/19 09:16 Last Admin: 11/12/19 09:15 Dose: 1,000 ml Lidocaine HCl (Xylocaine 2% Jelly) 10 ml MUCMEM ONETIME ONE Stop: 11/18/19 05:53 Last Admin: 11/18/19 06:13 Dose: 10 ml Lidocaine/Epinephrine (Xylocaine 1% With Epinephrine 1:100,000) Confirm Administered Dose 50 ml .ROUTE .STK-MED ONE Stop: 11/12/19 08:35 Last Admin: 11/12/19 09:29 Dose: 20 ml Neostigmine Methylsulfate (Neostigmine) Confirm Administered Dose 5 mg .ROUTE .STK-MED ONE Stop: 11/12/19 08:42 Ondansetron HCl (Zofran) Confirm Administered Dose 4 mg .ROUTE .STK-MED ONE Stop: 11/12/19 08:42 Pantoprazole Sodium (Protonix) 40 mg PO ACBREAKFAST [facility] Last Admin: 11/13/19 08:20 Dose: 40 mg Phenylephrine HCl (Bobby-Synephrine) Confirm Administered Dose 10 mg .ROUTE .STK- MED ONE Stop: 11/12/19 09:05 Piperacillin Sod/Tazobactam Sod (Zosyn) Confirm Administered Dose 4.5 gm .ROUTE .STK-MED ONE Stop: 11/12/19 06:31 Last Admin: 11/12/19 06:39 Dose: Not Given Potassium Chloride (Potassium Chloride) 40 meq PO ONETIME ONE Stop: 11/19/19 14:01 Last Admin: 11/19/19 13:49 Dose: 40 meq Propofol (Diprivan 20 Ml) Confirm Administered Dose 200 mg .ROUTE .STK-MED ONE Stop: 11/12/19 08:42 Rocuronium [place] (Zemuron) Confirm Administered Dose 50 mg .ROUTE .STK-MED ONE Stop: 11/12/19 08:42 Succinylcholine Chloride (Quelicin) Confirm Administered Dose 200 mg .ROUTE .STK -MED ONE Stop: 11/12/19 08:42 Vancomycin HCl (Vancomycin) 1 gm IV .PHARMACY TO DOSE [facility] Stop: 11/19/19 09:01 - Exam Quality Assessment: Supplemental Oxygen General: Alert, No Acute Distress, Lethargic Lungs: Normal Respiratory Effort, Decreased Breath Sounds (right mid lung), Crackles (mild diffuse ). No: Wheezing Cardiovascular: Regular Rhythm, Tachycardia GI/Abdominal Exam: Normal Bowel Sounds, Soft, No Distention Extremities: Pedal Edema (trace bilateral ). No: Increased Warmth Skin: Warm, Dry Psy/Mental Status: Alert. No: Agitated Sepsis Event Note - Evaluation Sepsis Screening Result: Sepsis Risk - Focused Exam Vital Signs: Vital Signs Temp Pulse Resp BP Pulse Ox 11/20/19 08:00 36.6 C 97 23 H 104/71 93 L 11/20/19 07:00 36.6 C 103 H 26 H 104/62 92 L 11/20/19 06:00 103 H 21 H 110/56 L 95 11/20/19 05:00 106 H 24 H 102/62 94 L 11/20/19 04:00 36.5 C 106 H 27 H 111/54 L 93 L 11/20/19 03:00 101 H 24 H 96/51 L 3 L 11/20/19 02:00 106 H 21 H 106/61 95 11/20/19 01:00 100 23 H 96/63 95 11/20/19 00:00 107 H 18 92/50 L 95 11/19/19 23:00 37.1 C 114 H 20 98/54 L 94 L 11/19/19 22:00 37.1 C 115 H 22 H 118/57 L 90 L Date Exam was Performed: 11/20/19 Time Exam was Performed: 12:32 - Problem List & Annotations (1) Septic shock due to Escherichia coli SNOMED Code(s): 77851720 Code(s): A41.51 - SEPSIS DUE TO ESCHERICHIA COLI [E. COLI]; R65.21 - SEVERE SEPSIS WITH SEPTIC SHOCK Status: Acute Current Visit: Yes (2) Severe sepsis SNOMED Code(s): 18713823 Code(s): A41.9 - SEPSIS, UNSPECIFIED ORGANISM; R65.20 - SEVERE SEPSIS WITHOUT SEPTIC SHOCK Status: Acute Current Visit: Yes (3) Hypokalemia SNOMED Code(s): 33396665 Code(s): E87.6 - HYPOKALEMIA Status: Acute Current Visit: Yes (4) Down's syndrome SNOMED Code(s): 73375451 Code(s): Q90.9 - DOWN SYNDROME, UNSPECIFIED Status: Chronic Current Visit : No (5) Acute cholecystitis SNOMED Code(s): 89154574 Code(s): K81.0 - ACUTE CHOLECYSTITIS Status: Acute Current Visit: Yes - Problem List Review Problem List Initiated/Reviewed/Updated: Yes - My Orders Last 24 Hours: My Active Orders 11/20/19 09:12 Weight Daily [Height and Weight] [RC] DAILY Furosemide [Lasix] 20 mg IVPUSH ONETIME ONE 11/21/19 05:00 BASIC METABOLIC PANEL,BMP [CHEM] Timed CBC W/O DIFF,HEMOGRAM [HEME] Timed (1) - Plan Plan:: ASSESSMENT AND PLAN Pneumonia-complicated by acute respiratory failure with hypoxia and recurrent hypotension. Respiratory status is stable on 3 L. He is very lethargic and weak. Vasopressor requirement is slowly decreasing. Possibly a component of volume overload related to the pneumonia. Cultures negative so far. -Continue broad-spectrum IV antibiotic therapy with vancomycin, Zosyn, and levofloxacin -As needed nebulizers -Dose of furosemide this morning -Continue vasopressor support, wean as able -Follow-up cultures -Supplemental oxygen as needed Acute cholecystitis with septic shock-status post laparoscopic cholecystectomy. Poor oral intake but otherwise doing okay from a surgical standpoint. -Saline lock IV -Nutritional supplement 4 times daily Hypokalemia-improved with supplementation. -Continue to monitor Down syndrome-significant disability at this time. Difficulty with communication. -Continue home medications Maintenance issues - - DVT prophylaxis -mechanical today, enoxaparin started tomorrow - Nutrition -advance per surgical instructions Disposition-anticipate discharge back to assisted living facility Morteza Mitchell MD
--- NOTE | 2019-11-20 10:23 | CR ---
CHEST: Portable 11/19/2019 at 8:50 AM CLINICAL HISTORY:Hypoxia COMPARISON:11/14/2019 FINDINGS: There are diffuse, moderate bilateral pulmonary infiltrates increased since the study from 11/14/2019. There is an increasing right pleural effusion. Lung base opacities may be a combination of infiltrate and atelectasis. Impression: Significant increase in bilateral pulmonary infiltrates Right pleural effusion
--- NOTE | 2019-11-20 11:26 | PN ---
DATE OF SERVICE: 11/20/2019 SUBJECTIVE: The patient is doing very well from the gallbladder surgery, still having problems with pressors. OBJECTIVE: VITAL SIGNS: Stable. CARDIOVASCULAR: Regular rhythm and rate. LUNGS: Poor inspiratory effort bilaterally. ASSESSMENT: Status post laparoscopic cholecystectomy. PLAN: With respect to his gallbladder surgery, he has recovered quite well. Incisions are healing well. He is having bowel movements with no problems. He remains on the pressors and ongoing hospice discussion is continuing. Chadwick Ledesma MD /[id number]
[2019-11-20] MEDS: Dimethicone 20%/Zinc Oxide 25% 56 GM Spray Bottle TOP PRN (14:42)
[2019-11-20] MEDS: Acetaminophen/HYDROcodone 325-5 MG Tab PO PRN (19:45)
[2019-11-20] MEDS: Zolpidem 5 MG Tab PO PRN (20:42)
[2019-11-21] MEDS: Dimethicone 20%/Zinc Oxide 25% 56 GM Spray Bottle TOP PRN (00:34)
[2019-11-21] MEDS: Piperacillin/Tazobactam/Dext 3.375 GM in Premix Bag 1 BAG IV SCH ×4 (04:01→22:16)
[2019-11-21] MEDS: Levofloxacin/Dextrose 5%-Water 750 MG in Premix Bag 1 BAG IV SCH (08:28)
[2019-11-21] MEDS: Lactobacillus Rhamnosus GG (Probiotic) Cap PO SCH ×2 (08:33→20:02)
[2019-11-21] MEDS: Enoxaparin 40 MG/0.4 ML Syringe SUBCUT SCH (08:33)
[2019-11-21] MEDS: Potassium Chloride 10 MEQ Cap.ER PO SCH (08:34)
[2019-11-21] MEDS: Sertraline 50 MG Tab PO SCH (08:34)
[2019-11-21] MEDS: Donepezil 10 MG Tab PO SCH (08:34)
[2019-11-21] MEDS: QUEtiapine 25 MG Tab PO SCH ×3 (08:34→20:02)
[2019-11-21] MEDS: levETIRAcetam 250 MG Tab PO SCH ×2 (08:34→20:02)
[2019-11-21] MEDS: OXcarbazepine 300 MG Tab PO SCH ×2 (08:34→20:01)
[2019-11-21] MEDS: Pantoprazole 40 MG Delayed-Release Granules 1 Packet PO SCH (08:35)
[2019-11-21] MEDS: Magnesium Oxide 400 MG Tab PO SCH (08:35)
--- NOTE | 2019-11-21 09:14 | PCM.PN ---
- General Info Date of Service: 11/21/19 Subjective Update: There were no acute events overnight. Jerel remains somewhat lethargic and minimally interactive so I was not able to gather any usable history from him this morning. The norepinephrine was weaned off yesterday evening and has not been restarted. He did have an increase in his respiratory rate in the evening this has come down overnight. He appears comfortable. He has not been eating much. He is weak but seems to be getting a little stronger. He continues to require 3 L of supplemental oxygen. Functional Status: Reports: Pain Controlled, Tolerating Diet (not eating much ) - Review of Systems General: Denies: Fever - Patient Data Vitals - Most Recent: Last Vital Signs Temp 36.7 C 11/21/19 09:00 Pulse 101 H 11/21/19 09:00 Resp 22 H 11/21/19 09:00 BP 108/62 11/21/19 09:00 Pulse Ox 93 L 11/21/19 09:00 Weight - Most Recent: 72.575 kg I&O - Last 24 Hours: Intake & Output 11/20/19 11/21/19 11/21/19 22:59 06:59 14:59 Intake Total 210 350 300 Balance 210 350 300 Lab Results Last 24 Hours: Laboratory Results - last 24 hr 11/21/19 11/21/19 Range/Units 04:50 04:50 WBC 12.0 H (4.5-11.0) K/uL RBC 3.11 L (4.30-5.90) M/uL Hgb 9.7 L (12.0-15.0) g/dL Hct 31.2 L (40.0-54.0) % MCV 100 H (80-98) fL MCH 31 (27-31) pg MCHC 31 L (32-36) % Plt Count 253 (150-400) K/uL Sodium 142 (140-148) mmol/L Potassium 3.7 (3.6-5.2) mmol/L Chloride 105 (100-108) mmol/L Carbon Dioxide 32 (21-32) mmol/L Anion Gap 4.8 L (5.0-14.0) mmol/L BUN 6 L (7-18) mg/dL Creatinine 0.7 L (0.8-1.3) mg/dL Est Cr Clr Drug Dosing 108.57 mL/min Estimated GFR (MDRD) > 60 (>60) Glucose 84 (74-106) mg/dL Calcium 7.5 L (8.5-10.1) mg/dL Alex Results Last 24 Hours: Microbiology 11/19/19 10:45 Aerobic Blood Culture - Preliminary Blood - Arm, Left NO GROWTH AFTER 1 DAY Anaerobic Blood Culture - Preliminary NO GROWTH AFTER 1 DAY 11/19/19 10:36 Aerobic Blood Culture - Preliminary Blood - Arm, Right NO GROWTH AFTER 1 DAY Anaerobic Blood Culture - Preliminary NO GROWTH AFTER 1 DAY Med Orders - Current: Current Medications Hydrocodone Bitart/Acetaminophen (Dickinson 325-5 Mg) 1 tab PO Q4H PRN PRN Reason: Pain (moderate 4-6) Last Admin: 11/20/19 19:45 Dose: 1 tab Albuterol/Ipratropium (Duoneb 3.0-0.5 Mg/3 Ml) 3 ml NEB Q4H PRN PRN Reason: Dyspnea Last Admin: 11/20/19 17:30 Dose: 3 ml Benzocaine/Menthol (Cepacol Sore Throat) 1 lozenge MUCMEM Q4H PRN PRN Reason: Sore Throat Dimethicone/Zinc Oxide (Rash Relief-Zinc Oxide Pullman) 1 gm TOP ASDIRECTED PRN PRN Reason: Rash Last Admin: 11/21/19 00:34 Dose: 1 applic Docusate Sodium (Colace) 100 mg PO BID PRN PRN Reason: Constipation Donepezil HCl (Aricept) 10 mg PO DAILY [facility] Last Admin: 11/21/19 08:34 Dose: 10 mg Enoxaparin Sodium (Lovenox) 40 mg SUBCUT DAILY [facility] Last Admin: 11/21/19 08:33 Dose: 40 mg Hydrocortisone (Hydrocortisone 1% Crm) 0 gm TOP BID PRN PRN Reason: Rash Hydroxyzine HCl (Vistaril) 100 mg IM Q4H PRN PRN Reason: Breakthrough Pain Levofloxacin/Dextrose 750 mg/ (Premix) 150 mls @ 100 mls/hr IV Q24H [facility] Last Admin: 11/21/19 08:28 Dose: 100 mls/hr Piperacillin/Tazobactam/ (Dextrose 3.375 gm/ Premix) 50 mls @ 100 mls/hr IV Q6HR [facility] Last Admin: 11/21/19 04:01 Dose: 100 mls/hr Lactobacillus Rhamnosus (Culturelle) 1 cap PO BID [facility] Last Admin: 11/21/19 08:33 Dose: 1 cap Levetiracetam (Keppra) 750 mg PO BID [facility] Last Admin: 11/21/19 08:34 Dose: 750 mg Lidocaine HCl (Xylocaine 2% Jelly) 10 ml MUCMEM BID PRN PRN Reason: Other Magnesium Oxide (Magnesium Oxide) 400 mg PO BID [facility] Last Admin: 11/21/19 08:35 Dose: 400 mg Ondansetron HCl (Zofran Odt) 4 mg PO Q4H PRN PRN Reason: Nausea/Vomiting Ondansetron HCl (Zofran) 4 mg IVPUSH Q4H PRN PRN Reason: Nausea/Vomiting Oxcarbazepine (Trileptal) 150 mg PO BID [facility] Last Admin: 11/21/19 08:34 Dose: 150 mg Pantoprazole Sodium (Protonix Granules) 40 mg PO DAILY@0730 [facility] Last Admin: 11/21/19 08:35 Dose: 40 mg Potassium Chloride (Potassium Chloride) 10 meq PO DAILY [facility] Last Admin: 11/21/19 08:34 Dose: 10 meq Quetiapine Fumarate (Seroquel) 50 mg PO TID [facility] Last Admin: 11/21/19 08:34 Dose: 50 mg Sertraline HCl (Zoloft) 50 mg PO DAILY [facility] Last Admin: 11/21/19 08:34 Dose: 50 mg Zolpidem Tartrate (Ambien) 5 mg PO BEDTIME PRN PRN Reason: Sleep Last Admin: 11/20/19 20:42 Dose: 5 mg Discontinued Medications Acetaminophen (Tylenol) 650 mg RECTAL NOW ONE Stop: 11/12/19 05:59 Last Admin: 11/12/19 06:03 Dose: 650 mg Amoxicillin/Clavulanate Potassium (Augmentin 875 Mg/125 Mg) 1 tab PO BID [facility] Last Admin: 11/19/19 08:04 Dose: 1 tab Bupivacaine HCl (Marcaine 0.5%) Confirm Administered Dose 50 ml .ROUTE .STK-MED ONE Stop: 11/12/19 08:35 Last Admin: 11/12/19 09:29 Dose: 20 ml Ropivacaine 36 ml/Dexamethasone 8 mg/Epinephrine HCl 0.4 mg/ Sodium Chloride 41.6 ml [facility] Last Admin: 11/12/19 09:35 Dose: 80 syringe Dexamethasone (Dexamethasone) Confirm Administered Dose 4 mg .ROUTE .[facility] ONE Stop: 11/12/19 08:42 Enoxaparin Sodium (Lovenox) 40 mg SUBCUT DAILY [facility] Last Admin: 11/14/19 08:54 Dose: 40 mg Fentanyl (Sublimaze) Confirm Administered Dose 250 mcg .ROUTE .[facility] ONE Stop: 11/12/19 08:42 Furosemide (Lasix) 20 mg IVPUSH ONETIME ONE Stop: 11/18/19 23:16 Last Admin: 11/18/19 23:54 Dose: 20 mg Furosemide (Lasix) 20 mg IVPUSH ONETIME ONE Stop: 11/20/19 09:13 Last Admin: 11/20/19 09:57 Dose: 20 mg Glycopyrrolate (Robinul) Confirm Administered Dose 1 mg .ROUTE .[facility] ONE Stop: 11/12/19 08:42 Sodium Chloride (Normal Saline) 1,000 mls @ 999 mls/hr IV [facility] Last Admin: 11/12/19 05:40 Dose: 999 mls/hr Sodium Chloride (Normal Saline) 1,000 mls @ 999 mls/hr IV [facility] Last Admin: 11/12/19 06:30 Dose: 999 mls/hr Piperacillin Sod/Tazobactam (Sod 4.5 gm/ Sodium Chloride) 100 mls @ 100 mls/hr IV ONETIME ONE Stop: 11/12/19 07:16 Last Admin: 11/12/19 06:35 Dose: 100 mls/hr Aztreonam 1 gm/ Sodium (Chloride) 50 mls @ 100 mls/hr IV ONETIME ONE Stop: 11/12/19 07:01 Last Admin: 11/12/19 06:53 Dose: 100 mls/hr Sodium Chloride (Normal Saline) Confirm Administered Dose 100 mls @ as directed .ROUTE .[facility] ONE Stop: 11/12/19 06:33 Last Admin: 11/12/19 06:40 Dose: Not Given Sodium Chloride (Normal Saline) Confirm Administered Dose 100 mls @ as directed .ROUTE .[facility] ONE Stop: 11/12/19 06:34 Last Admin: 11/12/19 06:40 Dose: Not Given Sodium Chloride (Normal Saline) 1,000 mls @ 500 mls/hr IV ASDIRECTED [facility] Last Admin: 11/12/19 07:36 Dose: 500 mls/hr Lactated Ringer's (Ringers, Lactated) Confirm Administered Dose 1,000 mls @ as directed .ROUTE .STK-MED ONE Stop: 11/12/19 09:01 Sodium Chloride (Normal Saline) Confirm Administered Dose 10 mls @ as directed .ROUTE .STK-MED ONE Stop: 11/12/19 09:05 Lactated Ringer's (Ringers, Lactated) Confirm Administered Dose 1,000 mls @ as directed .ROUTE .STK-MED ONE Stop: 11/12/19 09:08 Lactated Ringer's (Ringers, Lactated) Confirm Administered Dose 1,000 mls @ as directed .ROUTE .STK-MED ONE Stop: 11/12/19 09:38 Piperacillin/Tazobactam/ (Dextrose 3.375 gm/ Premix) 50 mls @ 100 mls/hr IV Q6H [facility] Last Admin: 11/14/19 07:56 Dose: 100 mls/hr Potassium Cl/Dextrose/Lact Ringer's (D5 Lr With 20 Meq Kcl) 1,000 mls @ 125 mls /hr IV ASDIRECTED [facility] Last Admin: 11/12/19 21:54 Dose: 125 mls/hr Vancomycin HCl 1 gm/ Sodium (Chloride) 250 mls @ 166.667 mls/hr IV Q12H [facility] Last Admin: 11/14/19 00:19 Dose: 166.667 mls/hr Norepinephrine Bitartrate 4 mg (/ Dextrose/Water) 250 mls @ 7.5 mls/hr IV TITRATE [facility]; Protocol Last Titration: 11/14/19 02:00 Dose: 0 mcg/min, 0 mls/hr Potassium Cl/Dextrose/Lact Ringer's (D5 Lr With 20 Meq Kcl) 1,000 mls @ 75 mls/ hr IV ASDIRECTED [facility] Last Admin: 11/13/19 18:42 Dose: 75 mls/hr Magnesium Sulfate 2 gm/ Premix 50 mls @ 25 mls/hr IV Q6H [facility] Stop: 11/14/19 17:59 Last Admin: 11/14/19 16:02 Dose: 25 mls/hr Dextrose/Lactated Ringer's (Dextrose 5%-Lactated Ringers) 1,000 mls @ 150 mls/ hr IV ASDIRECTED [facility] Last Admin: 11/15/19 07:23 Dose: 150 mls/hr Potassium Chloride 20 meq/Lidocaine HCl 2 ml/ Sodium Chloride 112 mls @ 56 mls/ hr IV Q2H [facility] Stop: 11/14/19 17:59 Last Admin: 11/14/19 16:57 Dose: 56 mls/hr Ceftazidime 1 gm/ Sodium (Chloride) 50 mls @ 100 mls/hr IV Q8HR [facility] Last Admin: 11/14/19 13:58 Dose: 100 mls/hr Lactated Ringer's (Ringers, Lactated) 1,000 mls @ 500 mls/hr IV ASDIRECTED [facility] Stop: 11/14/19 15:59 Last Admin: 11/14/19 14:03 Dose: 500 mls/hr Levofloxacin/Dextrose 750 mg/ (Premix) 150 mls @ 100 mls/hr IV Q24H [facility] Last Admin: 11/17/19 16:48 Dose: 100 mls/hr Piperacillin/Tazobactam/ (Dextrose 3.375 gm/ Premix) 50 mls @ 100 mls/hr IV Q6H [facility] Last Admin: 11/18/19 09:16 Dose: 100 mls/hr Dextrose/Lactated Ringer's (Dextrose 5%-Lactated Ringers) 1,000 mls @ 75 mls/ hr IV ASDIRECTED [facility] Last Admin: 11/16/19 22:55 Dose: 75 mls/hr Potassium Chloride 20 meq/Lidocaine HCl 2 ml/ Sodium Chloride 112 mls @ 56 mls/ hr IV Q2H [facility] Stop: 11/16/19 13:59 Last Admin: 11/16/19 12:01 Dose: 56 mls/hr Sodium Chloride (Normal Saline) 250 mls @ 250 mls/hr IV ONETIME ONE Stop: 11/18/19 00:27 Last Admin: 11/17/19 23:50 Dose: 250 mls/hr Sodium Chloride (Normal Saline) 1,000 mls @ 500 mls/hr IV ASDIRECTED [facility] Last Admin: 11/18/19 11:31 Dose: 500 mls/hr Sodium Chloride (Normal Saline) 1,000 mls @ 250 mls/hr IV ASDIRECTED [facility] Stop: 11/18/19 18:45 Last Admin: 11/18/19 14:58 Dose: 250 mls/hr Sodium Chloride (Normal Saline) 1,000 mls @ 125 mls/hr IV ASDIRECTED [facility] Sodium Chloride (Normal Saline) 1,000 mls @ 125 mls/hr IV ASDIRECTED [facility] Stop: 11/19/19 03:30 Last Admin: 11/18/19 19:59 Dose: 125 mls/hr Vancomycin HCl 1 gm/ Sodium (Chloride) 250 mls @ 167 mls/hr IV Q12H [facility] Last Admin: 11/20/19 23:11 Dose: 167 mls/hr Norepinephrine Bitartrate 4 mg (/ Dextrose/Water) 250 mls @ 7.5 mls/hr IV TITRATE [facility]; Protocol Last Titration: 11/20/19 17:07 Dose: 0 mcg/min, 0 mls/hr Potassium Chloride 20 meq/Lidocaine HCl 2 ml/ Sodium Chloride 112 mls @ 56 mls/ hr IV Q2H [facility] Stop: 11/19/19 17:59 Last Admin: 11/19/19 16:57 Dose: 56 mls/hr Lactated Ringer's (Ringers, Lactated) 1,000 ml IRR .STK-MED ONE Stop: 11/12/19 09:16 Last Admin: 11/12/19 09:15 Dose: 1,000 ml Lidocaine HCl (Xylocaine 2% Jelly) 10 ml MUCMEM ONETIME ONE Stop: 11/18/19 05:53 Last Admin: 11/18/19 06:13 Dose: 10 ml Lidocaine/Epinephrine (Xylocaine 1% With Epinephrine 1:100,000) Confirm Administered Dose 50 ml .ROUTE .STK-MED ONE Stop: 11/12/19 08:35 Last Admin: 11/12/19 09:29 Dose: 20 ml Neostigmine Methylsulfate (Neostigmine) Confirm Administered Dose 5 mg .ROUTE .STK-MED ONE Stop: 11/12/19 08:42 Ondansetron HCl (Zofran) Confirm Administered Dose 4 mg .ROUTE .STK-MED ONE Stop: 11/12/19 08:42 Pantoprazole Sodium (Protonix) 40 mg PO ACBREAKFAST [facility] Last Admin: 11/13/19 08:20 Dose: 40 mg Phenylephrine HCl (Bobby-Synephrine) Confirm Administered Dose 10 mg .ROUTE .STK- MED ONE Stop: 11/12/19 09:05 Piperacillin Sod/Tazobactam Sod (Zosyn) Confirm Administered Dose 4.5 gm .ROUTE .STK-MED ONE Stop: 11/12/19 06:31 Last Admin: 11/12/19 06:39 Dose: Not Given Potassium Chloride (Potassium Chloride) 40 meq PO ONETIME ONE Stop: 11/19/19 14:01 Last Admin: 11/19/19 13:49 Dose: 40 meq Propofol (Diprivan 20 Ml) Confirm Administered Dose 200 mg .ROUTE .STK-MED ONE Stop: 11/12/19 08:42 Rocuronium [place] (Zemuron) Confirm Administered Dose 50 mg .ROUTE .STK-MED ONE Stop: 11/12/19 08:42 Succinylcholine Chloride (Quelicin) Confirm Administered Dose 200 mg .ROUTE .STK -MED ONE Stop: 11/12/19 08:42 Vancomycin HCl (Vancomycin) 1 gm IV .PHARMACY TO DOSE [facility] Stop: 11/19/19 09:01 - Exam Quality Assessment: Supplemental Oxygen General: Alert, No Acute Distress HEENT: Pupils Equal Lungs: Normal Respiratory Effort, Crackles (few right lung base) Cardiovascular: Regular Rate, Regular Rhythm GI/Abdominal Exam: Normal Bowel Sounds, Soft, No Distention Extremities: No Pedal Edema. No: Increased Warmth Skin: Warm, Dry Psy/Mental Status: Alert. No: Agitated Sepsis Event Note - Evaluation Sepsis Screening Result: No Definite Risk - Focused Exam Vital Signs: Vital Signs Temp Pulse Resp BP Pulse Ox 11/21/19 09:00 36.7 C 101 H 22 H 108/62 93 L 11/21/19 08:00 36.7 C 102 H 22 H 101/61 95 11/21/19 07:00 36.6 C 105 H 20 107/59 L 96 11/21/19 06:00 26 H 112/74 95 11/21/19 05:00 24 H 109/69 93 L 11/21/19 04:00 36.6 C 21 H 105/60 95 11/21/19 03:00 22 H 111/61 96 11/21/19 02:00 22 H 96/65 95 11/21/19 01:00 21 H 105/66 91 L 11/21/19 00:00 36.4 C 18 106/47 L 93 L 11/20/19 23:00 22 H 107/59 L 93 L 11/20/19 22:00 27 H 93/51 L 92 L Date Exam was Performed: 11/21/19 Time Exam was Performed: 12:36 - Problem List & Annotations (1) Septic shock due to Escherichia coli SNOMED Code(s): 59837252 Code(s): A41.51 - SEPSIS DUE TO ESCHERICHIA COLI [E. COLI]; R65.21 - SEVERE SEPSIS WITH SEPTIC SHOCK Status: Acute Current Visit: Yes (2) Severe sepsis SNOMED Code(s): 88646842 Code(s): A41.9 - SEPSIS, UNSPECIFIED ORGANISM; R65.20 - SEVERE SEPSIS WITHOUT SEPTIC SHOCK Status: Acute Current Visit: Yes (3) Hypokalemia SNOMED Code(s): 52584554 Code(s): E87.6 - HYPOKALEMIA Status: Acute Current Visit: Yes (4) Down's syndrome SNOMED Code(s): 90369055 Code(s): Q90.9 - DOWN SYNDROME, UNSPECIFIED Status: Chronic Current Visit : No (5) Acute cholecystitis SNOMED Code(s): 64807867 Code(s): K81.0 - ACUTE CHOLECYSTITIS Status: Acute Current Visit: Yes - Problem List Review Problem List Initiated/Reviewed/Updated: Yes - My Orders Last 24 Hours: My Active Orders 11/20/19 09:12 Weight Daily [Height and Weight] [RC] DAILY 11/20/19 10:47 Dimethicone/Zinc Oxide [Rash Relief-Zinc Oxide Pullman] 1 gm TOP ASDIRECTED PRN - Plan Plan:: ASSESSMENT AND PLAN Pneumonia, suspect aspiration-complicated by acute respiratory failure with hypoxia and recurrent hypotension/septic shock. Large infiltrate noted on chest x-ray. Respiratory status is stable on 3 L. He is now off of vasopressor support. White blood cell count has improved further but not quite normalized. Seems to be slowly improving. Family is not keen on escalating cares any further than what we are providing at this point. -Continue broad-spectrum IV antibiotic therapy with Zosyn, and levofloxacin -Discontinue vancomycin -As needed nebulizers -Follow-up cultures -Supplemental oxygen as needed Acute cholecystitis with septic shock-status post laparoscopic cholecystectomy. Poor oral intake but otherwise doing okay from a surgical standpoint. -Saline lock IV -Nutritional supplement 4 times daily Hypokalemia-improved with supplementation. -Continue to monitor Down syndrome-significant disability at this time. Difficulty with communication. -Continue home medications Maintenance issues - - DVT prophylaxis -Loyd apparent - Nutrition -regular diet with supplements Disposition-anticipate discharge back to assisted living facility. Family conference is planned for this afternoon. Morteza Mitchell MD
--- NOTE | 2019-11-21 16:01 | PCM.SN.2 ---
- Free Text/Narrative Note: There was a phone conference this afternoon with 2 sisters (Cande and Layla). They were updated about his current condition. We did discuss his current level of care and some potential scenarios that we may encounter as the hospital stay progresses. They feel that any escalation of cares beyond the current level would not be in accordance with his wishes given his poor quality of life. They did feel that continuing antibiotics at least in the short-term was acceptable. They did not wish for him to have any advanced scans such as CT scans performed and did not wish for him to be put through additional blood draws, noninvasive ventilation or receive vasopressor support from norepinephrine. They wished for aggressive titration of pain medications to keep him comfortable. They do understand that he is very ill and may not recover from this but would like him to be comfortable. He has not been eating very much and is very weak. They wish for transition to hospice care after hospital discharge. Morteza Mitchell MD
[2019-11-21] MEDS: Zolpidem 5 MG Tab PO PRN (20:01)
[2019-11-22] MEDS: Piperacillin/Tazobactam/Dext 3.375 GM in Premix Bag 1 BAG IV SCH (03:39)
[2019-11-22] MEDS: Levofloxacin/Dextrose 5%-Water 750 MG in Premix Bag 1 BAG IV SCH (07:53)
[2019-11-22] MEDS: Lactobacillus Rhamnosus GG (Probiotic) Cap PO SCH ×2 (08:38→20:21)
[2019-11-22] MEDS: Donepezil 10 MG Tab PO SCH (08:38)
[2019-11-22] MEDS: Potassium Chloride 10 MEQ Cap.ER PO SCH (08:39)
[2019-11-22] MEDS: levETIRAcetam 250 MG Tab PO SCH ×2 (08:39→20:21)
[2019-11-22] MEDS: OXcarbazepine 300 MG Tab PO SCH ×2 (08:40→20:21)
[2019-11-22] MEDS: Sertraline 50 MG Tab PO SCH (08:40)
[2019-11-22] MEDS: QUEtiapine 25 MG Tab PO SCH (08:41)
--- NOTE | 2019-11-22 09:39 | PCM.PN ---
- General Info Date of Service: 11/22/19 Subjective Update: There were no acute events overnight. The patient continues to to be lethargic and does not respond to any questions this morning. He continues to require 3 L of supplemental oxygen. He appears comfortable. Very minimal intake. Functional Status: Reports: Pain Controlled, Other (lethargic ) - Review of Systems General: Denies: Fever - Patient Data Vitals - Most Recent: Last Vital Signs Temp 36.2 C 11/22/19 07:44 Pulse 90 11/22/19 07:44 Resp 22 H 11/22/19 07:44 BP 116/68 11/22/19 07:44 Pulse Ox 90 L 11/22/19 07:44 Weight - Most Recent: 72.575 kg I&O - Last 24 Hours: Intake & Output 11/21/19 11/22/19 11/22/19 22:59 06:59 14:59 Intake Total 320 50 Balance 320 50 Alex Results Last 24 Hours: Microbiology 11/19/19 10:45 Aerobic Blood Culture - Preliminary Blood - Arm, Left NO GROWTH AFTER 2 DAYS Anaerobic Blood Culture - Preliminary NO GROWTH AFTER 2 DAYS 11/19/19 10:36 Aerobic Blood Culture - Preliminary Blood - Arm, Right NO GROWTH AFTER 2 DAYS Anaerobic Blood Culture - Preliminary NO GROWTH AFTER 2 DAYS Med Orders - Current: Current Medications Dimethicone/Zinc Oxide (Rash Relief-Zinc Oxide [place]) 1 gm TOP ASDIRECTED PRN PRN Reason: Rash Last Admin: 11/21/19 00:34 Dose: 1 applic Docusate Sodium (Colace) 100 mg PO BID PRN PRN Reason: Constipation Donepezil HCl (Aricept) 10 mg PO DAILY [facility] Last Admin: 11/22/19 08:38 Dose: 10 mg Hydrocortisone (Hydrocortisone 1% Crm) 0 gm TOP BID PRN PRN Reason: Rash Lactobacillus Rhamnosus (Culturelle) 1 cap PO BID [facility] Last Admin: 11/22/19 08:38 Dose: 1 cap Levetiracetam (Keppra) 750 mg PO BID [facility] Last Admin: 11/22/19 08:39 Dose: 750 mg Lidocaine HCl (Xylocaine 2% Jelly) 10 ml MUCMEM BID PRN PRN Reason: Other Morphine Sulfate (Morphine 10 Mg/0.5 Ml Oral Syringe) 5 mg PO Q2H PRN PRN Reason: Pain Ondansetron HCl (Zofran Odt) 4 mg PO Q4H PRN PRN Reason: Nausea/Vomiting Ondansetron HCl (Zofran) 4 mg IVPUSH Q4H PRN PRN Reason: Nausea/Vomiting Oxcarbazepine (Trileptal) 150 mg PO BID [facility] Last Admin: 11/22/19 08:40 Dose: 150 mg Potassium Chloride (Potassium Chloride) 10 meq PO DAILY [facility] Last Admin: 11/22/19 08:39 Dose: 10 meq Quetiapine Fumarate (Seroquel) 50 mg PO TID [facility] Last Admin: 11/22/19 08:41 Dose: 50 mg Sertraline HCl (Zoloft) 50 mg PO DAILY [facility] Last Admin: 11/22/19 08:40 Dose: 50 mg Zolpidem Tartrate (Ambien) 5 mg PO BEDTIME PRN PRN Reason: Sleep Last Admin: 11/21/19 20:01 Dose: 5 mg Discontinued Medications Acetaminophen (Tylenol) 650 mg RECTAL NOW ONE Stop: 11/12/19 05:59 Last Admin: 11/12/19 06:03 Dose: 650 mg Hydrocodone Bitart/Acetaminophen ([place] 325-5 Mg) 1 tab PO Q4H PRN PRN Reason: Pain (moderate 4-6) Last Admin: 11/20/19 19:45 Dose: 1 tab Albuterol/Ipratropium (Duoneb 3.0-0.5 Mg/3 Ml) 3 ml NEB Q4H PRN PRN Reason: Dyspnea Last Admin: 11/20/19 17:30 Dose: 3 ml Amoxicillin/Clavulanate Potassium (Augmentin 875 Mg/125 Mg) 1 tab PO BID [facility] Last Admin: 11/19/19 08:04 Dose: 1 tab Benzocaine/Menthol (Cepacol Sore Throat) 1 lozenge MUCMEM Q4H PRN PRN Reason: Sore Throat Bupivacaine HCl (Marcaine 0.5%) Confirm Administered Dose 50 ml .ROUTE .STK-MED ONE Stop: 11/12/19 08:35 Last Admin: 11/12/19 09:29 Dose: 20 ml Ropivacaine 36 ml/Dexamethasone 8 mg/Epinephrine HCl 0.4 mg/ Sodium Chloride 41.6 ml 0 ml NERVRT ASDIRECTED [facility] Last Admin: 11/12/19 09:35 Dose: 80 syringe Dexamethasone (Dexamethasone) Confirm Administered Dose 4 mg .ROUTE .STK-MED ONE Stop: 11/12/19 08:42 Enoxaparin Sodium (Lovenox) 40 mg SUBCUT DAILY [facility] Last Admin: 11/14/19 08:54 Dose: 40 mg Enoxaparin Sodium (Lovenox) 40 mg SUBCUT DAILY [facility] Last Admin: 11/21/19 08:33 Dose: 40 mg Fentanyl (Sublimaze) Confirm Administered Dose 250 mcg .ROUTE .STK-MED ONE Stop: 11/12/19 08:42 Furosemide (Lasix) 20 mg IVPUSH ONETIME ONE Stop: 11/18/19 23:16 Last Admin: 11/18/19 23:54 Dose: 20 mg Furosemide (Lasix) 20 mg IVPUSH ONETIME ONE Stop: 11/20/19 09:13 Last Admin: 11/20/19 09:57 Dose: 20 mg Glycopyrrolate (Robinul) Confirm Administered Dose 1 mg .ROUTE .[facility]-MED ONE Stop: 11/12/19 08:42 Hydroxyzine HCl (Vistaril) 100 mg IM Q4H PRN PRN Reason: Breakthrough Pain Sodium Chloride (Normal Saline) 1,000 mls @ 999 mls/hr IV ASDIRECTED [facility] Last Admin: 11/12/19 05:40 Dose: 999 mls/hr Sodium Chloride (Normal Saline) 1,000 mls @ 999 mls/hr IV ASDIRECTED [facility] Last Admin: 11/12/19 06:30 Dose: 999 mls/hr Piperacillin Sod/Tazobactam (Sod 4.5 gm/ Sodium Chloride) 100 mls @ 100 mls/hr IV ONETIME ONE Stop: 11/12/19 07:16 Last Admin: 11/12/19 06:35 Dose: 100 mls/hr Aztreonam 1 gm/ Sodium (Chloride) 50 mls @ 100 mls/hr IV ONETIME ONE Stop: 11/12/19 07:01 Last Admin: 11/12/19 06:53 Dose: 100 mls/hr Sodium Chloride (Normal Saline) Confirm Administered Dose 100 mls @ as directed .ROUTE .STK-MED ONE Stop: 11/12/19 06:33 Last Admin: 11/12/19 06:40 Dose: Not Given Sodium Chloride (Normal Saline) Confirm Administered Dose 100 mls @ as directed .ROUTE .[facility]-MED ONE Stop: 11/12/19 06:34 Last Admin: 11/12/19 06:40 Dose: Not Given Sodium Chloride (Normal Saline) 1,000 mls @ 500 mls/hr IV ASDIRECTED [facility] Last Admin: 11/12/19 07:36 Dose: 500 mls/hr Lactated Ringer's (Ringers, Lactated) Confirm Administered Dose 1,000 mls @ as directed .ROUTE .[facility]-MED ONE Stop: 11/12/19 09:01 Sodium Chloride (Normal Saline) Confirm Administered Dose 10 mls @ as directed .ROUTE .[facility]-MED ONE Stop: 11/12/19 09:05 Lactated Ringer's (Ringers, Lactated) Confirm Administered Dose 1,000 mls @ as directed .ROUTE .[facility] ONE Stop: 11/12/19 09:08 Lactated Ringer's (Ringers, Lactated) Confirm Administered Dose 1,000 mls @ as directed .ROUTE .[facility] ONE Stop: 11/12/19 09:38 Piperacillin/Tazobactam/ (Dextrose 3.375 gm/ Premix) 50 mls @ 100 mls/hr IV Q6H [facility] Last Admin: 11/14/19 07:56 Dose: 100 mls/hr Potassium Cl/Dextrose/Lact Ringer's (D5 Lr With 20 Meq Kcl) 1,000 mls @ 125 mls /hr IV ASDIRECTED [facility] Last Admin: 11/12/19 21:54 Dose: 125 mls/hr Vancomycin HCl 1 gm/ Sodium (Chloride) 250 mls @ 166.667 mls/hr IV Q12H [facility] Last Admin: 11/14/19 00:19 Dose: 166.667 mls/hr Norepinephrine Bitartrate 4 mg (/ Dextrose/Water) 250 mls @ 7.5 mls/hr IV TITRATE [facility]; Protocol Last Titration: 11/14/19 02:00 Dose: 0 mcg/min, 0 mls/hr Potassium Cl/Dextrose/Lact Ringer's (D5 Lr With 20 Meq Kcl) 1,000 mls @ 75 mls/ hr IV ASDIRECTED [facility] Last Admin: 11/13/19 18:42 Dose: 75 mls/hr Magnesium Sulfate 2 gm/ Premix 50 mls @ 25 mls/hr IV Q6H [facility] Stop: 11/14/19 17:59 Last Admin: 11/14/19 16:02 Dose: 25 mls/hr Dextrose/Lactated Ringer's (Dextrose 5%-Lactated Ringers) 1,000 mls @ 150 mls/ hr IV ASDIRECTED [facility] Last Admin: 11/15/19 07:23 Dose: 150 mls/hr Potassium Chloride 20 meq/Lidocaine HCl 2 ml/ Sodium Chloride 112 mls @ 56 mls/ hr IV Q2H [facility] Stop: 11/14/19 17:59 Last Admin: 11/14/19 16:57 Dose: 56 mls/hr Ceftazidime 1 gm/ Sodium (Chloride) 50 mls @ 100 mls/hr IV Q8HR [facility] Last Admin: 11/14/19 13:58 Dose: 100 mls/hr Lactated Ringer's (Ringers, Lactated) 1,000 mls @ 500 mls/hr IV ASDIRECTED [facility] Stop: 11/14/19 15:59 Last Admin: 11/14/19 14:03 Dose: 500 mls/hr Levofloxacin/Dextrose 750 mg/ (Premix) 150 mls @ 100 mls/hr IV Q24H [facility] Last Admin: 11/17/19 16:48 Dose: 100 mls/hr Piperacillin/Tazobactam/ (Dextrose 3.375 gm/ Premix) 50 mls @ 100 mls/hr IV Q6H [facility] Last Admin: 11/18/19 09:16 Dose: 100 mls/hr Dextrose/Lactated Ringer's (Dextrose 5%-Lactated Ringers) 1,000 mls @ 75 mls/ hr IV ASDIRECTED [facility] Last Admin: 11/16/19 22:55 Dose: 75 mls/hr Potassium Chloride 20 meq/Lidocaine HCl 2 ml/ Sodium Chloride 112 mls @ 56 mls/ hr IV Q2H [facility] Stop: 11/16/19 13:59 Last Admin: 11/16/19 12:01 Dose: 56 mls/hr Sodium Chloride (Normal Saline) 250 mls @ 250 mls/hr IV ONETIME ONE Stop: 11/18/19 00:27 Last Admin: 11/17/19 23:50 Dose: 250 mls/hr Sodium Chloride (Normal Saline) 1,000 mls @ 500 mls/hr IV ASDIRECTED [facility] Last Admin: 11/18/19 11:31 Dose: 500 mls/hr Sodium Chloride (Normal Saline) 1,000 mls @ 250 mls/hr IV ASDIRECTED [facility] Stop: 11/18/19 18:45 Last Admin: 11/18/19 14:58 Dose: 250 mls/hr Sodium Chloride (Normal Saline) 1,000 mls @ 125 mls/hr IV ASDIRECTED [facility] Sodium Chloride (Normal Saline) 1,000 mls @ 125 mls/hr IV ASDIRECTED [facility] Stop: 11/19/19 03:30 Last Admin: 11/18/19 19:59 Dose: 125 mls/hr Levofloxacin/Dextrose 750 mg/ (Premix) 150 mls @ 100 mls/hr IV Q24H [facility] Last Admin: 11/22/19 07:53 Dose: 100 mls/hr Piperacillin/Tazobactam/ (Dextrose 3.375 gm/ Premix) 50 mls @ 100 mls/hr IV Q6HR [facility] Last Admin: 11/22/19 03:39 Dose: 100 mls/hr Vancomycin HCl 1 gm/ Sodium (Chloride) 250 mls @ 167 mls/hr IV Q12H [facility] Last Admin: 11/20/19 23:11 Dose: 167 mls/hr Norepinephrine Bitartrate 4 mg (/ Dextrose/Water) 250 mls @ 7.5 mls/hr IV TITRATE [facility]; Protocol Last Titration: 11/20/19 17:07 Dose: 0 mcg/min, 0 mls/hr Potassium Chloride 20 meq/Lidocaine HCl 2 ml/ Sodium Chloride 112 mls @ 56 mls/ hr IV Q2H [facility] Stop: 11/19/19 17:59 Last Admin: 11/19/19 16:57 Dose: 56 mls/hr Lactated Ringer's (Ringers, Lactated) 1,000 ml IRR .STK-MED ONE Stop: 11/12/19 09:16 Last Admin: 11/12/19 09:15 Dose: 1,000 ml Lidocaine HCl (Xylocaine 2% Jelly) 10 ml MUCMEM ONETIME ONE Stop: 11/18/19 05:53 Last Admin: 11/18/19 06:13 Dose: 10 ml Lidocaine/Epinephrine (Xylocaine 1% With Epinephrine 1:100,000) Confirm Administered Dose 50 ml .ROUTE .STK-MED ONE Stop: 11/12/19 08:35 Last Admin: 11/12/19 09:29 Dose: 20 ml Magnesium Oxide (Magnesium Oxide) 400 mg PO BID [facility] Last Admin: 11/21/19 08:35 Dose: 400 mg Neostigmine Methylsulfate (Neostigmine) Confirm Administered Dose 5 mg .ROUTE .STK-MED ONE Stop: 11/12/19 08:42 Ondansetron HCl (Zofran) Confirm Administered Dose 4 mg .ROUTE .STK-MED ONE Stop: 11/12/19 08:42 Pantoprazole Sodium (Protonix) 40 mg PO ACBREAKFAST [facility] Last Admin: 11/13/19 08:20 Dose: 40 mg Pantoprazole Sodium (Protonix Granules) 40 mg PO DAILY@0730 [facility] Last Admin: 11/21/19 08:35 Dose: 40 mg Phenylephrine HCl (Bobby-Synephrine) Confirm Administered Dose 10 mg .ROUTE .STK- MED ONE Stop: 11/12/19 09:05 Piperacillin Sod/Tazobactam Sod (Zosyn) Confirm Administered Dose 4.5 gm .ROUTE .STK-MED ONE Stop: 11/12/19 06:31 Last Admin: 11/12/19 06:39 Dose: Not Given Potassium Chloride (Potassium Chloride) 40 meq PO ONETIME ONE Stop: 11/19/19 14:01 Last Admin: 11/19/19 13:49 Dose: 40 meq Propofol (Diprivan 20 Ml) Confirm Administered Dose 200 mg .ROUTE .STK-MED ONE Stop: 11/12/19 08:42 Rocuronium [place] (Zemuron) Confirm Administered Dose 50 mg .ROUTE .STK-MED ONE Stop: 11/12/19 08:42 Succinylcholine Chloride (Quelicin) Confirm Administered Dose 200 mg .ROUTE .STK -MED ONE Stop: 11/12/19 08:42 Vancomycin HCl (Vancomycin) 1 gm IV .PHARMACY TO DOSE [facility] Stop: 11/19/19 09:01 - Exam Quality Assessment: Supplemental Oxygen General: No Acute Distress, Lethargic. No: Alert Lungs: Normal Respiratory Effort, Crackles (few right lower and mid lung) Cardiovascular: Regular Rate, Regular Rhythm GI/Abdominal Exam: Soft, No Distention Extremities: Pedal Edema Psy/Mental Status: Alert, Normal Affect Sepsis Event Note - Evaluation Sepsis Screening Result: No Definite Risk - Focused Exam Vital Signs: Vital Signs Temp Pulse Resp BP Pulse Ox 11/22/19 07:44 36.2 C 90 22 H 116/68 90 L 11/22/19 03:41 36.9 C 94 16 113/65 94 L 11/22/19 00:00 36.8 C 111 H 18 114/60 93 L Date Exam was Performed: 11/22/19 Time Exam was Performed: 13:26 - Problem List & Annotations (1) Septic shock due to Escherichia coli SNOMED Code(s): 68495331 Code(s): A41.51 - SEPSIS DUE TO ESCHERICHIA COLI [E. COLI]; R65.21 - SEVERE SEPSIS WITH SEPTIC SHOCK Status: Acute Current Visit: Yes (2) Severe sepsis SNOMED Code(s): 02284572 Code(s): A41.9 - SEPSIS, UNSPECIFIED ORGANISM; R65.20 - SEVERE SEPSIS WITHOUT SEPTIC SHOCK Status: Acute Current Visit: Yes (3) Hypokalemia SNOMED Code(s): 92727958 Code(s): E87.6 - HYPOKALEMIA Status: Acute Current Visit: Yes (4) Down's syndrome SNOMED Code(s): 88216493 Code(s): Q90.9 - DOWN SYNDROME, UNSPECIFIED Status: Chronic Current Visit : No (5) Acute cholecystitis SNOMED Code(s): 14493900 Code(s): K81.0 - ACUTE CHOLECYSTITIS Status: Acute Current Visit: Yes - Problem List Review Problem List Initiated/Reviewed/Updated: Yes - My Orders Last 24 Hours: My Active Orders 11/21/19 15:56 Transfer Patient (Change bed) [ADT] Routine 11/21/19 15:57 Morphine [Morphine 10 MG/0.5 ML Oral Syringe] 5 mg PO Q2H PRN 11/22/19 09:35 Antiembolic Devices [RC] .Routine Furosemide [Lasix] 20 mg IVPUSH NOW ONE TREVIN Hose [Antiembolic Hose] [OM.PC] Routine 11/23/19 08:00 levoFLOXacin [Levaquin] 750 mg PO Q24H - Plan Plan:: ASSESSMENT AND PLAN Pneumonia, suspect aspiration-complicated by acute respiratory failure with hypoxia and recurrent hypotension/septic shock. Large infiltrate noted on chest x-ray. Respiratory status is stable on 3 L. He may have some mild excess volume from the sepsis resuscitation. We are moving more towards a limited care plan but continuing oxygen and antibiotic therapy. -Continue levofloxacin -Dose of furosemide this morning -TREVIN stockings -As needed nebulizers -Supplemental oxygen as needed Acute cholecystitis with septic shock-status post laparoscopic cholecystectomy. Poor oral intake. No significant pain. -Saline lock IV -Nutritional supplement 4 times daily Down syndrome-significant disability at this time. Difficulty with communication. -Continue home medications Maintenance issues - - DVT prophylaxis -mechanical - Nutrition -regular diet with supplements Disposition-anticipate discharge back to assisted living facility. Family conference was held on 11/20. We are moving towards a limited treatment plan but continuing antibiotics. Our goal is to get him well enough to get back to his assisted living facility and he will transition to hospice at that time. I would anticipate discharge in 1 or maybe 2 days. Morteza Mitchell MD
[2019-11-22] MEDS ORDERED: Furosemide 20 MG/2 ML VIAL IVPUSH ONE (10:30)
[2019-11-22] MEDS: Morphine 10 MG/0.5 ML Oral Syringe PO PRN ×2 (12:49→20:20)
[2019-11-22] MEDS: Zolpidem 5 MG Tab PO PRN (20:22)
[2019-11-23] MEDS: Morphine 10 MG/0.5 ML Oral Syringe PO PRN (03:06)
[2019-11-23] MEDS ORDERED: Levofloxacin 500 MG Tab PO SCH (08:00)
[2019-11-23] MEDS ORDERED: Levofloxacin 250 MG Tab PO SCH (08:00)
[2019-11-23] MEDS: Sertraline 50 MG Tab PO SCH (09:32)
[2019-11-23] MEDS: OXcarbazepine 300 MG Tab PO SCH (09:32)
[2019-11-23] MEDS: Potassium Chloride 10 MEQ Cap.ER PO SCH (09:32)
[2019-11-23] MEDS: Donepezil 10 MG Tab PO SCH (09:33)
[2019-11-23] MEDS: levETIRAcetam 250 MG Tab PO SCH (09:33)
[2019-11-23] MEDS: Lactobacillus Rhamnosus GG (Probiotic) Cap PO SCH (09:33)
[2019-11-23] MEDS ORDERED: predniSONE 20 MG Tab PO ONE (10:00)
--- NOTE | 2019-11-23 10:33 | PCM.DCSUM1 ---
Discharge Summary - Hospital Course Brief History: 59-year-old male with history of Down syndrome and seizure disorder who presented with abdominal pain, lethargy and fever. He was admitted for management of acute cholecystitis. Diagnosis: Stroke: No - Discharge Data Discharge Date: 11/23/19 Discharge Disposition: DC/Tfer to Hospice - Home 49 Condition: Stable - Referral to Home Health Primary Care Physician: PCP None - Discharge Diagnosis/Problem(s) (1) Acute cholecystitis SNOMED Code(s): 36582085 ICD Code: K81.0 - ACUTE CHOLECYSTITIS Status: Acute (2) Septic shock due to Escherichia coli SNOMED Code(s): 09252615 ICD Code: A41.51 - SEPSIS DUE TO ESCHERICHIA COLI [E. COLI]; R65.21 - SEVERE SEPSIS WITH SEPTIC SHOCK Status: Acute (3) Severe sepsis SNOMED Code(s): 66389617 ICD Code: A41.9 - SEPSIS, UNSPECIFIED ORGANISM; R65.20 - SEVERE SEPSIS WITHOUT SEPTIC SHOCK Status: Acute (4) Hypokalemia SNOMED Code(s): 28126833 ICD Code: E87.6 - HYPOKALEMIA Status: Acute (5) Down's syndrome SNOMED Code(s): 59450635 ICD Code: Q90.9 - DOWN SYNDROME, UNSPECIFIED Status: Chronic (6) Aspiration pneumonia SNOMED Code(s): 315800030 ICD Code: J69.0 - PNEUMONITIS DUE TO INHALATION OF FOOD AND VOMIT Status: Acute Qualifiers: Aspiration pneumonia type: unspecified Laterality: bilateral Lung location: lower lobe of lung Qualified Code(s): J69.0 - Pneumonitis due to inhalation of food and vomit - Patient Summary/Data Consults: Consultations 11/12/19 08:42 Nutrition Reassessment/Plan, Adult [Consult to [employer]] [CONS] Routine Comment: Physician Instructions: Quantity: Hospital Course: Jerel presented to the emergency room with about 2 weeks of progressive weakness , lethargy and a new onset of fever. Work-up in the emergency room was suggestive of acute cholecystitis with evidence for sepsis. He was started on antibiotics and taken to the operating room for surgical intervention. He had an uneventful laparoscopic cholecystectomy with a very ill appearing gallbladder. Postoperatively he continued to be hypotensive despite aggressive volume resuscitation in the operating room in the emergency room. He was admitted to the intensive care unit. We did have to start him on vasopressors fairly quickly because of the persistent hypotension. He was on broad-spectrum antibiotics. Shortly after admission all 4 of his blood cultures from the emergency room came back positive for gram-negative rods. He remained on the broad-spectrum antibiotic therapy over the next couple of days. His blood cultures did eventually returned with pansensitive E. coli. We were slowly able to wean him off the norepinephrine. After several days in the intensive care unit he had made enough progress that he was safe for transfer out of the intensive care unit. His strength and appetite had both been improving. He has been afebrile for several days. Unfortunately about 5 days after admission he had trouble with swallowing pills and there was suspicion for aspiration. The next day his respiratory status started to decline with increasing supplemental oxygen requirements and decreasing blood pressure. He was transferred back to the intensive care unit and started on broad-spectrum IV antibiotic therapy. Repeat blood cultures were obtained. He did require norepinephrine for vasopressor support. Over the next couple of days we were slowly able to turn down the norepinephrine. His cultures have been negative so we de-escalated antibiotics. Over the course of the last several days of the hospitalization multiple conversations were held with his family. They do not feel that given his poor quality of life and especially with his recent decline that aggressive interventions or cares would be fitting with his wishes. The patient appears to have recovered from the septic shock portion of the infection but he remains very weak and very lethargic. His oral intake has been very minimal. Family has expressed desire to transition to comfort cares at this time given his significant disabilities now even more difficult because of his severe infections. We have stabilized the patient enough that he can be transferred back to his assisted living facility. He will be receiving hospice care along with his nursing care at the assisted living facility. I would suspect that his condition will deteriorate further over the next couple of weeks because he is not eating or drinking very well. - Patient Instructions Diet: Regular Diet as Tolerated Activity: As Tolerated Showering/Bathing: May Shower Notify Provider of: Fever, Increased Pain Other/Special Instructions: 1. You were in the hospital for management of acute cholecystitis which was complicated by septic shock caused by E. coli. Your hospital stay was further complicated by aspiration pneumonia with acute respiratory failure as well as recurrent septic shock. Your infections have been improving with antibiotic therapy but unfortunately the severity of the infections have taken a toll on your body. We are transitioning to hospice care is to maximize comfort at the time of hospital discharge. 2. Continue your usual home medications as previously prescribed. 3. I have provided prescriptions for morphine to help control pain and air hunger as well as Lorazepam for anxiety/agitation. 4. You should continue to use oxygen at 3 L/ min with the goal to keep your oxygen saturations greater than 90%. - Discharge Plan *PRESCRIPTION DRUG MONITORING PROGRAM REVIEWED*: Not Applicable *COPY OF PRESCRIPTION DRUG MONITORING REPORT IN PATIENT SUSANNE: Not Applicable Prescriptions/Med Rec: LORazepam [LORazepam Intensol] 0.5 mg PO Q2H PRN #30 ml PRN Reason: Anxiety/Agitation Morphine [Morphine 20 MG/ML Soln] 5 mg PO Q2H PRN #60 ml PRN Reason: Pain predniSONE 40 mg PO WITHBREAKFAST #6 tablet Home Medications: Home Meds Acetaminophen 500 mg PO TID 02/28/19 [History] Calcium Carbonate [Calcium] 600 mg PO DAILY 02/28/19 [History] Donepezil HCl 10 mg PO DAILY 02/28/19 [History] Multivitamin with Minerals [Multiple Vitamin] 1 tab PO DAILY 02/28/19 [History] Omeprazole 40 mg PO DAILY 02/28/19 [History] levETIRAcetam [Levetiracetam ER] 750 mg PO BID 02/28/19 [History] Hydrocortisone [Hydrocortisone 1% Crm] 1 applic TOP BID PRN 08/30/19 [History] OXcarbazepine [Oxcarbazepine] 150 mg PO BID 08/30/19 [History] Sertraline [Zoloft] 50 mg PO DAILY 08/30/19 [History] Potassium Chloride 10 meq PO DAILY 11/12/19 [History] LORazepam [LORazepam Intensol] 0.5 mg PO Q2H PRN #30 ml 11/23/19 [Rx] Morphine [Morphine 20 MG/ML Soln] 5 mg PO Q2H PRN #60 ml 11/23/19 [Rx] predniSONE 40 mg PO WITHBREAKFAST #6 tablet 11/23/19 [Rx] Oxygen Therapy Mode: Nasal Cannula Oxygen Flow Rate (L/min): 3 Patient Handouts: Aspiration Precautions, Adult - Discharge Summary/Plan Comment DC Time >30 min.: Yes (40-coordinating hospice ) - Patient Data Vitals - Most Recent: Last Vital Signs Temp 36.6 C 11/23/19 04:00 Pulse 84 11/23/19 07:13 Resp 20 11/23/19 06:00 BP 126/63 11/23/19 07:13 Pulse Ox 92 L 11/23/19 07:13 Weight - Most Recent: 72.575 kg GIL Results - Last 24 hrs: Microbiology 11/19/19 10:45 Aerobic Blood Culture - Preliminary Blood - Arm, Left NO GROWTH AFTER 3 DAYS Anaerobic Blood Culture - Preliminary NO GROWTH AFTER 3 DAYS 11/19/19 10:36 Aerobic Blood Culture - Preliminary Blood - Arm, Right NO GROWTH AFTER 3 DAYS Anaerobic Blood Culture - Preliminary NO GROWTH AFTER 3 DAYS Med Orders - Current: Current Medications Dimethicone/Zinc Oxide (Rash Relief-Zinc Oxide [place]) 1 gm TOP ASDIRECTED PRN PRN Reason: Rash Last Admin: 11/21/19 00:34 Dose: 1 applic Docusate Sodium (Colace) 100 mg PO BID PRN PRN Reason: Constipation Donepezil HCl (Aricept) 10 mg PO DAILY [facility] Last Admin: 11/23/19 09:33 Dose: 10 mg Hydrocortisone (Hydrocortisone 1% Crm) 0 gm TOP BID PRN PRN Reason: Rash Lactobacillus Rhamnosus (Culturelle) 1 cap PO BID [facility] Last Admin: 11/23/19 09:33 Dose: 1 cap Levetiracetam (Keppra) 750 mg PO BID [facility] Last Admin: 11/23/19 09:33 Dose: 750 mg Levofloxacin (Levaquin) 750 mg PO Q24H [facility] Last Admin: 11/23/19 09:33 Dose: 750 mg Lidocaine HCl (Xylocaine 2% Jelly) 10 ml MUCMEM BID PRN PRN Reason: Other Morphine Sulfate (Morphine 10 Mg/0.5 Ml Oral Syringe) 5 mg PO Q2H PRN PRN Reason: Pain Last Admin: 11/23/19 03:06 Dose: 5 mg Ondansetron HCl (Zofran Odt) 4 mg PO Q4H PRN PRN Reason: Nausea/Vomiting Ondansetron HCl (Zofran) 4 mg IVPUSH Q4H PRN PRN Reason: Nausea/Vomiting Oxcarbazepine (Trileptal) 150 mg PO BID [facility] Last Admin: 11/23/19 09:32 Dose: 150 mg Potassium Chloride (Potassium Chloride) 10 meq PO DAILY [facility] Last Admin: 11/23/19 09:32 Dose: 10 meq Prednisone (Prednisone) 40 mg PO WITHBREAKFAST [facility] Sertraline HCl (Zoloft) 50 mg PO DAILY [facility] Last Admin: 11/23/19 09:32 Dose: 50 mg Zolpidem Tartrate (Ambien) 5 mg PO BEDTIME PRN PRN Reason: Sleep Last Admin: 11/22/19 20:22 Dose: 5 mg Discontinued Medications Acetaminophen (Tylenol) 650 mg RECTAL NOW ONE Stop: 11/12/19 05:59 Last Admin: 11/12/19 06:03 Dose: 650 mg Hydrocodone Bitart/Acetaminophen ([place] 325-5 Mg) 1 tab PO Q4H PRN PRN Reason: Pain (moderate 4-6) Last Admin: 11/20/19 19:45 Dose: 1 tab Albuterol/Ipratropium (Duoneb 3.0-0.5 Mg/3 Ml) 3 ml NEB Q4H PRN PRN Reason: Dyspnea Last Admin: 11/20/19 17:30 Dose: 3 ml Amoxicillin/Clavulanate Potassium (Augmentin 875 Mg/125 Mg) 1 tab PO BID [facility] Last Admin: 11/19/19 08:04 Dose: 1 tab Benzocaine/Menthol (Cepacol Sore Throat) 1 lozenge MUCMEM Q4H PRN PRN Reason: Sore Throat Bupivacaine HCl (Marcaine 0.5%) Confirm Administered Dose 50 ml .ROUTE .STK-MED ONE Stop: 11/12/19 08:35 Last Admin: 11/12/19 09:29 Dose: 20 ml Ropivacaine 36 ml/Dexamethasone 8 mg/Epinephrine HCl 0.4 mg/ Sodium Chloride 41.6 ml 0 ml NERVRT ASDIRECTED [facility] Last Admin: 11/12/19 09:35 Dose: 80 syringe Dexamethasone (Dexamethasone) Confirm Administered Dose 4 mg .ROUTE .STK-MED ONE Stop: 11/12/19 08:42 Enoxaparin Sodium (Lovenox) 40 mg SUBCUT DAILY [facility] Last Admin: 11/14/19 08:54 Dose: 40 mg Enoxaparin Sodium (Lovenox) 40 mg SUBCUT DAILY [facility] Last Admin: 11/21/19 08:33 Dose: 40 mg Fentanyl (Sublimaze) Confirm Administered Dose 250 mcg .ROUTE .K-MED ONE Stop: 11/12/19 08:42 Furosemide (Lasix) 20 mg IVPUSH ONETIME ONE Stop: 11/18/19 23:16 Last Admin: 11/18/19 23:54 Dose: 20 mg Furosemide (Lasix) 20 mg IVPUSH ONETIME ONE Stop: 11/20/19 09:13 Last Admin: 11/20/19 09:57 Dose: 20 mg Furosemide (Lasix) 20 mg IVPUSH NOW ONE Stop: 11/22/19 10:31 Last Admin: 11/22/19 10:11 Dose: 20 mg Glycopyrrolate (Robinul) Confirm Administered Dose 1 mg .ROUTE .STK-MED ONE Stop: 11/12/19 08:42 Hydroxyzine HCl (Vistaril) 100 mg IM Q4H PRN PRN Reason: Breakthrough Pain Sodium Chloride (Normal Saline) 1,000 mls @ [facility] Admin: 11/12/19 05:40 Dose: 999 mls/hr Sodium Chloride (Normal Saline) 1,000 mls @ [facility] Last Admin: 11/12/19 06:30 Dose: 999 mls/hr Piperacillin Sod/Tazobactam (Sod 4.5 gm/ Sodium Chloride) 100 mls @ 100 mls/hr IV ONETIME ONE Stop: 11/12/19 07:16 Last Admin: 11/12/19 06:35 Dose: 100 mls/hr Aztreonam 1 gm/ Sodium (Chloride) 50 mls @ 100 mls/hr IV ONETIME ONE Stop: 11/12/19 07:01 Last Admin: 11/12/19 06:53 Dose: 100 mls/hr Sodium Chloride (Normal Saline) Confirm Administered Dose 100 mls @ as directed .ROUTE .STK-MED ONE Stop: 11/12/19 06:33 Last Admin: 11/12/19 06:40 Dose: Not Given Sodium Chloride (Normal Saline) Confirm Administered Dose 100 mls @ as directed .ROUTE .STK-MED ONE Stop: 11/12/19 06:34 Last Admin: 11/12/19 06:40 Dose: Not Given Sodium Chloride (Normal Saline) 1,000 mls @ 500 mls/hr IV [facility] Last Admin: 11/12/19 07:36 Dose: 500 mls/hr Lactated Ringer's (Ringers, Lactated) Confirm Administered Dose 1,000 mls @ as directed .ROUTE .[facility] ONE Stop: 11/12/19 09:01 Sodium Chloride (Normal Saline) Confirm Administered Dose 10 mls @ as directed .ROUTE .[facility] ONE Stop: 11/12/19 09:05 Lactated Ringer's (Ringers, Lactated) Confirm Administered Dose 1,000 mls @ as directed .ROUTE .[facility] ONE Stop: 11/12/19 09:08 Lactated Ringer's (Ringers, Lactated) Confirm Administered Dose 1,000 mls @ as directed .ROUTE .[facility] ONE Stop: 11/12/19 09:38 Piperacillin/Tazobactam/ (Dextrose 3.375 gm/ Premix) 50 mls @ 100 mls/hr IV Q6H [facility] Last Admin: 11/14/19 07:56 Dose: 100 mls/hr Potassium Cl/Dextrose/Lact Ringer's (D5 Lr With 20 Meq Kcl) 1,000 mls @ 125 mls /hr IV ASDIRECTED [facility] Last Admin: 11/12/19 21:54 Dose: 125 mls/hr Vancomycin HCl 1 gm/ Sodium (Chloride) 250 mls @ 166.667 mls/hr IV Q12H [facility] Last Admin: 11/14/19 00:19 Dose: 166.667 mls/hr Norepinephrine Bitartrate 4 mg (/ Dextrose/Water) 250 mls @ 7.5 mls/hr IV TITRATE [facility]; Protocol Last Titration: 11/14/19 02:00 Dose: 0 mcg/min, 0 mls/hr Potassium Cl/Dextrose/Lact Ringer's (D5 Lr With 20 Meq Kcl) 1,000 mls @ 75 mls/ hr IV ASDIRECTED [facility] Last Admin: 11/13/19 18:42 Dose: 75 mls/hr Magnesium Sulfate 2 gm/ Premix 50 mls @ 25 mls/hr IV Q6H [facility] Stop: 11/14/19 17:59 Last Admin: 11/14/19 16:02 Dose: 25 mls/hr Dextrose/Lactated Ringer's (Dextrose 5%-Lactated Ringers) 1,000 mls @ 150 mls/ hr IV ASDIRECTED [facility] Last Admin: 11/15/19 07:23 Dose: 150 mls/hr Potassium Chloride 20 meq/Lidocaine HCl 2 ml/ Sodium Chloride 112 mls @ 56 mls/ hr IV Q2H [facility] Stop: 11/14/19 17:59 Last Admin: 11/14/19 16:57 Dose: 56 mls/hr Ceftazidime 1 gm/ Sodium (Chloride) 50 mls @ 100 mls/hr IV Q8HR [facility] Last Admin: 11/14/19 13:58 Dose: 100 mls/hr Lactated Ringer's (Ringers, Lactated) 1,000 mls @ 500 mls/hr IV ASDIRECTED [facility] Stop: 11/14/19 15:59 Last Admin: 11/14/19 14:03 Dose: 500 mls/hr Levofloxacin/Dextrose 750 mg/ (Premix) 150 mls @ 100 mls/hr IV Q24H [facility] Last Admin: 11/17/19 16:48 Dose: 100 mls/hr Piperacillin/Tazobactam/ (Dextrose 3.375 gm/ Premix) 50 mls @ 100 mls/hr IV Q6H [facility] Last Admin: 11/18/19 09:16 Dose: 100 mls/hr Dextrose/Lactated Ringer's (Dextrose 5%-Lactated Ringers) 1,000 mls @ 75 mls/ hr IV ASDIRECTED [facility] Last Admin: 11/16/19 22:55 Dose: 75 mls/hr Potassium Chloride 20 meq/Lidocaine HCl 2 ml/ Sodium Chloride 112 mls @ 56 mls/ hr IV Q2H [facility] Stop: 11/16/19 13:59 Last Admin: 11/16/19 12:01 Dose: 56 mls/hr Sodium Chloride (Normal Saline) 250 mls @ 250 mls/hr IV ONETIME ONE Stop: 11/18/19 00:27 Last Admin: 11/17/19 23:50 Dose: 250 mls/hr Sodium Chloride (Normal Saline) 1,000 mls @ 500 mls/hr IV ASDIRECTED [facility] Last Admin: 11/18/19 11:31 Dose: 500 mls/hr Sodium Chloride (Normal Saline) 1,000 mls @ 250 mls/hr IV ASDIRECTED [facility] Stop: 11/18/19 18:45 Last Admin: 11/18/19 14:58 Dose: 250 mls/hr Sodium Chloride (Normal Saline) 1,000 mls @ 125 mls/hr IV ASDIRECTED [facility] Sodium Chloride (Normal Saline) 1,000 mls @ 125 mls/hr IV ASDIRECTED [facility] Stop: 11/19/19 03:30 Last Admin: 11/18/19 19:59 Dose: 125 mls/hr Levofloxacin/Dextrose 750 mg/ (Premix) 150 mls @ 100 mls/hr IV Q24H [facility] Last Admin: 11/22/19 07:53 Dose: 100 mls/hr Piperacillin/Tazobactam/ (Dextrose 3.375 gm/ Premix) 50 mls @ 100 mls/hr IV Q6HR [facility] Last Admin: 11/22/19 03:39 Dose: 100 mls/hr Vancomycin HCl 1 gm/ Sodium (Chloride) 250 mls @ 167 mls/hr IV Q12H [facility] Last Admin: 11/20/19 23:11 Dose: 167 mls/hr Norepinephrine Bitartrate 4 mg (/ Dextrose/Water) 250 mls @ 7.5 mls/hr IV TITRATE [facility]; Protocol Last Titration: 11/20/19 17:07 Dose: 0 mcg/min, 0 mls/hr Potassium Chloride 20 meq/Lidocaine HCl 2 ml/ Sodium Chloride 112 mls @ 56 mls/ hr IV Q2H [facility] Stop: 11/19/19 17:59 Last Admin: 11/19/19 16:57 Dose: 56 mls/hr Lactated Ringer's (Ringers, Lactated) 1,000 ml IRR .STK-MED ONE Stop: 11/12/19 09:16 Last Admin: 11/12/19 09:15 Dose: 1,000 ml Levofloxacin (Levaquin) 750 mg PO Q24H [facility] Lidocaine HCl (Xylocaine 2% Jelly) 10 ml MUCMEM ONETIME ONE Stop: 11/18/19 05:53 Last Admin: 11/18/19 06:13 Dose: 10 ml Lidocaine/Epinephrine (Xylocaine 1% With Epinephrine 1:100,000) Confirm Administered Dose 50 ml .ROUTE .STK-MED ONE Stop: 11/12/19 08:35 Last Admin: 11/12/19 09:29 Dose: 20 ml Magnesium Oxide (Magnesium Oxide) 400 mg PO BID [facility] Last Admin: 11/21/19 08:35 Dose: 400 mg Neostigmine Methylsulfate (Neostigmine) Confirm Administered Dose 5 mg .ROUTE .STK-MED ONE Stop: 11/12/19 08:42 Ondansetron HCl (Zofran) Confirm Administered Dose 4 mg .ROUTE .STK-MED ONE Stop: 11/12/19 08:42 Pantoprazole Sodium (Protonix) 40 mg PO ACBREAKFAST [facility] Last Admin: 11/13/19 08:20 Dose: 40 mg Pantoprazole Sodium (Protonix Granules) 40 mg PO DAILY@0730 [facility] Last Admin: 11/21/19 08:35 Dose: 40 mg Phenylephrine HCl (Bobby-Synephrine) Confirm Administered Dose 10 mg .ROUTE .STK- MED ONE Stop: 11/12/19 09:05 Piperacillin Sod/Tazobactam Sod (Zosyn) Confirm Administered Dose 4.5 gm .ROUTE .STK-MED ONE Stop: 11/12/19 06:31 Last Admin: 11/12/19 06:39 Dose: Not Given Potassium Chloride (Potassium Chloride) 40 meq PO ONETIME ONE Stop: 11/19/19 14:01 Last Admin: 11/19/19 13:49 Dose: 40 meq Prednisone (Prednisone) 40 mg PO ONETIME ONE Stop: 11/23/19 10:01 Last Admin: 11/23/19 10:31 Dose: 40 mg Propofol (Diprivan 20 Ml) Confirm Administered Dose 200 mg .ROUTE .STK-MED ONE Stop: 11/12/19 08:42 Quetiapine Fumarate (Seroquel) 50 mg PO TID [facility] Last Admin: 11/22/19 08:41 Dose: 50 mg Rocuronium [place] (Zemuron) Confirm Administered Dose 50 mg .ROUTE .STK-MED ONE Stop: 11/12/19 08:42 Succinylcholine Chloride (Quelicin) Confirm Administered Dose 200 mg .ROUTE .STK -MED ONE Stop: 11/12/19 08:42 Vancomycin HCl (Vancomycin) 1 gm IV .PHARMACY TO DOSE [facility] Stop: 11/19/19 09:01 - Exam Quality Assessment: Reports: Supplemental Oxygen General: Reports: Alert, No Acute Distress, Lethargic. Denies: Cooperative Lungs: Reports: Normal Respiratory Effort, Crackles (right lower lung), Wheezing (mild right side ) Cardiovascular: Reports: Regular Rate, Regular Rhythm GI/Abdominal Exam: Soft, No Distention Extremities: No Pedal Edema Psy/Mental Status: Reports: Alert. Denies: Agitated
[2019-11-24] MEDS ORDERED: predniSONE 20 MG Tab PO SCH (08:00)
== END 2019-11-23 13:30 | disposition hospice, home (50) | DRG 853 ==
LOC: JP.ED 05:19 → JP.SDS 08:15 → JP.ICU 11:03 → JP.MS 11-17 18:42 → JP.ICU 11-19 12:13
PROVIDERS: ADMIT Surgery; ATTEND Surgery
PROC: 0FT44ZZ Resection of Gallbladder, Percutaneous Endoscopic Approach (ICD-10-PCS; principal; 2019-11-12)
PROC: 3E033XZ Introduction of Vasopressor into Peripheral Vein, Percutaneous Approach (ICD-10-PCS; 2019-11-13)
DX: K81.0 Acute cholecystitis (principal); E86.0 Dehydration; R94.5 Abnormal results of liver function studies; H54.7 Unspecified visual loss; A41.51 Sepsis due to Escherichia coli [E. coli]; R65.21 Severe sepsis with septic shock; J69.0 Pneumonitis due to inhalation of food and vomit; J18.9 Pneumonia, unspecified organism; J96.01 Acute respiratory failure with hypoxia; K80.00 Calculus of gallbladder with acute cholecystitis without obstruction; Z51.5 Encounter for palliative care; E87.6 Hypokalemia; G30.9 Alzheimer's disease, unspecified; G40.909 Epilepsy, unspecified, not intractable, without status epilepticus; F02.80 Dementia in other diseases classified elsewhere, unspecified severity, without behavioral disturbance, psychotic disturbance, mood disturbance, and anxiety; Q90.9 Down syndrome, unspecified; Z79.890 Hormone replacement therapy; Z79.899 Other long term (current) drug therapy
CPT/HCPCS: 36415; 51701; 51702; 51798; 71045; 71045-26; 76705; 80048; 80053; 81001; 82803; 83605; 83690; 83735; 85025; 85027; 86140; 87040; 87070; 87075; 87077; 87086; 87186; 87205; 88304; 94640; 94660; 96365; 96368; 99284; 99285-25; A9270-GY; J0171; J0330; J0713; J1100; J1650; J1940; J1956; J2001; J2370; J2405; J2543; J2704; J2710; J2795; J3010; J3370; J3475; J3480; J3490; J7030; J7050; J7060; J7120; J7121; J7512; J7620-GY